=== PATIENT | female | born 1955 | race Caucasian/White ===

== ENCOUNTER 2017-01-18 15:35 | Inpatient (IN) | payer MEDICARE, MEDICAID ==
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
[2017-01-18] MEDS ORDERED: Lactated Ringers 1,000 ML IV ONE (15:41)
[2017-01-18] MEDS ORDERED: Ondansetron 4 MG/2 ML SDV IVPUSH ONE (15:41)
[2017-01-18] MEDS ORDERED: Famotidine 20 MG/2 ML SDV IVPUSH ONE (15:41)
[2017-01-18] MEDS ORDERED: Pantoprazole 40 MG Vial IVPUSH ONE (15:41)
[2017-01-18] MEDS: cefTRIAXone 1 GM in Sodium Chloride 0.9% 100 ML IV SCH (16:07)
[2017-01-18] MEDS: metroNIDAZOLE/Normal Saline 500 MG in Premix Bag 1 BAG IV SCH (16:22)
[2017-01-18 16:25] LABS: CHLORIDE,CL 101 mmol/L (98-107); SODIUM,NA 136 mmol/L (136-145)
[2017-01-18] MEDS ORDERED: Iopamidol 612 MG/ML 100 ML Bottle IVPUSH ONE (17:00)
[2017-01-18] MEDS ORDERED: Metoclopramide 10 MG/2 ML SDV IVPUSH PRN (18:44)
[2017-01-18] MEDS ORDERED: Ondansetron 4 MG/2 ML SDV IVPUSH PRN (18:46)
[2017-01-18] MEDS ORDERED: Acetaminophen 325 MG Tab PO PRN (18:46)
[2017-01-18] MEDS: Amitriptyline 25 MG Tab PO SCH (20:01)
[2017-01-18] MEDS: Nicotine 21 MG/24 Hr Patch TRDERM SCH (20:02)
[2017-01-18] MEDS: ALPRAZolam 1 MG Tab PO SCH (20:02)
[2017-01-18] MEDS: Magnesium Oxide 400 MG Tab PO SCH (20:02)
[2017-01-18] MEDS: Divalproex Sodium Delayed-Release 250 MG Tab.CR PO SCH (20:02)
[2017-01-18] MEDS: Gabapentin 100 MG Cap PO SCH (20:02)
[2017-01-18] MEDS: Sodium Chloride 0.9% 10 ML Syringe FLUSH SCH (20:03)
[2017-01-18] MEDS: D5 1/2 NS w/ 20 mEq/L KCl 1,000 ML IV SCH (20:10)
[2017-01-19] MEDS: metroNIDAZOLE/Normal Saline 500 MG in Premix Bag 1 BAG IV SCH ×3 (00:36→16:13)
[2017-01-19] MEDS: cefTRIAXone 1 GM in Sodium Chloride 0.9% 100 ML IV SCH ×2 (03:55→15:37)
[2017-01-19 07:30] LABS: CHLORIDE,CL 110 mmol/L (98-107); SODIUM,NA 144 mmol/L (136-145)
[2017-01-19] MEDS ORDERED: ALPRAZolam 1 MG Tab PO SCH (08:00)
[2017-01-19] MEDS ORDERED: Gabapentin 100 MG Cap PO SCH (08:00)
[2017-01-19] MEDS: Sodium Chloride 0.9% 10 ML Syringe FLUSH SCH ×2 (08:12→21:06)
[2017-01-19] MEDS: Pantoprazole 40 MG Vial IVPUSH SCH ×2 (08:13→21:04)
[2017-01-19] MEDS: Magnesium Oxide 400 MG Tab PO SCH ×2 (08:24→17:22)
[2017-01-19] MEDS: Gabapentin 100 MG Cap PO SCH ×3 (08:24→17:22)
[2017-01-19] MEDS: PARoxetine 20 MG Tab PO SCH (08:24)
[2017-01-19] MEDS: Divalproex Sodium Delayed-Release 250 MG Tab.CR PO SCH ×3 (08:24→17:21)
[2017-01-19] MEDS: ALPRAZolam 1 MG Tab PO SCH ×3 (08:25→17:22)
[2017-01-19] MEDS: Sodium Chloride 0.9% 10 ML Syringe FLUSH PRN ×3 (08:26→16:17)
[2017-01-19] MEDS: D5 1/2 NS w/ 20 mEq/L KCl 1,000 ML IV SCH (08:27)
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
[2017-01-19] MEDS ORDERED: Albuterol/Ipratropium 3.0-0.5 MG/3 ML Neb Soln NEB PRN (13:55)
[2017-01-19] MEDS ORDERED: Albuterol 0.083% 2.5 MG/3 ML Neb Soln INH PRN (14:00)
[2017-01-19] MEDS: Albuterol/Ipratropium 3.0-0.5 MG/3 ML Neb Soln NEB SCH ×2 (15:37→21:05)
[2017-01-19] MEDS: Nicotine 21 MG/24 Hr Patch TRDERM SCH (17:22)
[2017-01-19] MEDS ORDERED: cefTRIAXone 1 GM in Sodium Chloride 0.9% 100 ML IV SCH (18:46)
[2017-01-19] MEDS ORDERED: metroNIDAZOLE/Normal Saline 500 MG in Premix Bag 1 BAG IV SCH (18:46)
[2017-01-19] MEDS: Amitriptyline 25 MG Tab PO SCH (21:05)
[2017-01-19] MEDS: Budesonide 0.5 MG/2 ML Neb Susp NEB SCH (21:05)
[2017-01-19] MEDS: Famotidine 20 MG/2 ML SDV IVPUSH SCH (21:05)
[2017-01-20] MEDS: metroNIDAZOLE/Normal Saline 500 MG in Premix Bag 1 BAG IV SCH ×3 (00:04→15:41)
[2017-01-20] MEDS: Sodium Chloride 0.9% 10 ML Syringe FLUSH PRN (00:06)
[2017-01-20] MEDS: Albuterol/Ipratropium 3.0-0.5 MG/3 ML Neb Soln NEB SCH ×5 (02:07→20:49)
[2017-01-20] MEDS: D5 1/2 NS w/ 20 mEq/L KCl 1,000 ML IV SCH (03:38)
[2017-01-20] MEDS: cefTRIAXone 1 GM in Sodium Chloride 0.9% 100 ML IV SCH ×2 (03:42→14:46)
[2017-01-20] MEDS: Divalproex Sodium Delayed-Release 250 MG Tab.CR PO SCH ×3 (08:15→17:42)
[2017-01-20] MEDS: Magnesium Oxide 400 MG Tab PO SCH ×2 (08:16→17:42)
[2017-01-20] MEDS: PARoxetine 20 MG Tab PO SCH (08:17)
[2017-01-20] MEDS: Gabapentin 100 MG Cap PO SCH ×3 (08:17→17:41)
[2017-01-20] MEDS: ALPRAZolam 1 MG Tab PO SCH ×3 (08:17→17:41)
[2017-01-20 08:18] LABS: CHLORIDE,CL 108 mmol/L (98-107); SODIUM,NA 142 mmol/L (136-145)
[2017-01-20] MEDS: Budesonide 0.5 MG/2 ML Neb Susp NEB SCH ×3 (08:18→20:48)
[2017-01-20] MEDS: Pantoprazole 40 MG Vial IVPUSH SCH ×2 (08:18→20:13)
[2017-01-20] MEDS: Famotidine 20 MG/2 ML SDV IVPUSH SCH ×2 (08:18→20:13)
[2017-01-20] MEDS: Sodium Chloride 0.9% 10 ML Syringe FLUSH SCH ×2 (08:18→20:13)
[2017-01-20] MEDS: Nicotine 21 MG/24 Hr Patch TRDERM SCH (17:42)
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
[2017-01-20] MEDS: Amitriptyline 25 MG Tab PO SCH (20:12)
[2017-01-21] MEDS: metroNIDAZOLE/Normal Saline 500 MG in Premix Bag 1 BAG IV SCH ×3 (00:09→15:07)
[2017-01-21] MEDS: Sodium Chloride 0.9% 10 ML Syringe FLUSH PRN ×2 (00:10→03:24)
[2017-01-21] MEDS: cefTRIAXone 1 GM in Sodium Chloride 0.9% 100 ML IV SCH ×2 (03:24→16:17)
[2017-01-21] MEDS: Albuterol/Ipratropium 3.0-0.5 MG/3 ML Neb Soln NEB SCH ×2 (03:46→07:29)
[2017-01-21] MEDS: Pantoprazole 40 MG Vial IVPUSH SCH ×2 (07:28→20:37)
[2017-01-21] MEDS: Magnesium Oxide 400 MG Tab PO SCH ×2 (07:29→17:00)
[2017-01-21] MEDS: Gabapentin 100 MG Cap PO SCH ×3 (07:29→17:00)
[2017-01-21] MEDS: Budesonide 0.5 MG/2 ML Neb Susp NEB SCH (07:29)
[2017-01-21] MEDS: Sodium Chloride 0.9% 10 ML Syringe FLUSH SCH ×2 (07:29→20:38)
[2017-01-21] MEDS: Divalproex Sodium Delayed-Release 250 MG Tab.CR PO SCH ×3 (07:30→17:00)
[2017-01-21] MEDS: Famotidine 20 MG/2 ML SDV IVPUSH SCH ×2 (07:30→20:37)
[2017-01-21] MEDS: PARoxetine 20 MG Tab PO SCH (07:30)
[2017-01-21] MEDS: ALPRAZolam 1 MG Tab PO SCH ×3 (07:30→17:00)
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
[2017-01-21] MEDS: Nicotine 21 MG/24 Hr Patch TRDERM SCH (17:00)
[2017-01-21] MEDS: Amitriptyline 25 MG Tab PO SCH (20:37)
[2017-01-22] MEDS: metroNIDAZOLE/Normal Saline 500 MG in Premix Bag 1 BAG IV SCH ×3 (00:44→14:56)
[2017-01-22] MEDS: cefTRIAXone 1 GM in Sodium Chloride 0.9% 100 ML IV SCH ×2 (04:20→16:03)
[2017-01-22] MEDS: Famotidine 20 MG/2 ML SDV IVPUSH SCH (07:36)
[2017-01-22] MEDS: Pantoprazole 40 MG Vial IVPUSH SCH (07:36)
[2017-01-22] MEDS: Magnesium Oxide 400 MG Tab PO SCH (07:38)
[2017-01-22] MEDS: Gabapentin 100 MG Cap PO SCH ×2 (07:39→11:23)
[2017-01-22] MEDS: PARoxetine 20 MG Tab PO SCH (07:39)
[2017-01-22] MEDS: ALPRAZolam 1 MG Tab PO SCH ×2 (07:39→11:24)
[2017-01-22] MEDS: Divalproex Sodium Delayed-Release 250 MG Tab.CR PO SCH ×2 (07:40→11:24)
[2017-01-22 07:45] LABS: CHLORIDE,CL 103 mmol/L (98-107); SODIUM,NA 139 mmol/L (136-145)
[2017-01-22] MEDS: Sodium Chloride 0.9% 10 ML Syringe FLUSH SCH (07:48)
--- NOTE | 2017-01-22 13:08 | PCM.DCSUM1 ---
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 Microbiology 01/18/17 15:38 Blood - Venous Aerobic Blood Culture - Preliminary NO GROWTH AFTER 3 DAYS 01/18/17 15:38 Blood - Venous Anaerobic Blood Culture - Preliminary NO GROWTH AFTER 3 DAYS 01/18/17 16:09 Blood - Venous - Lab Draw Aerobic Blood Culture - Preliminary NO GROWTH AFTER 3 DAYS 01/18/17 16:09 Blood - Venous - Lab Draw Anaerobic Blood Culture - Preliminary NO GROWTH AFTER 3 DAYS 01/18/17 17:05 Urine, Quick Cath (In-Out) Urine Culture - Final NO GROWTH AFTER 2 DAYS 01/18/17 16:45 Stool / Feces Stool Occult Blood (EZEQUIEL) - Final NEGATIVE OCCULT BLOOD Med Orders - Current: Current Medications Acetaminophen (Tylenol) 650 mg PO Q4H PRN PRN Reason: Pain Last Admin: 01/19/17 08:25 Dose: 650 mg Albuterol (Proventil Neb Soln) 2.5 mg INH Q2H PRN PRN Reason: SHORTNESS OF BREATH Albuterol/Ipratropium (Duoneb 3.0-0.5 Mg/3 Ml) 3 ml NEB Q4HRRT PRN PRN Reason: Dyspnea Alprazolam (Xanax) 1 mg PO TID [facility] Last Admin: 01/22/17 11:24 Dose: 1 mg Amitriptyline HCl (Elavil) 50 mg PO BEDTIME [facility] Last Admin: 01/21/17 20:37 Dose: 50 mg Carisoprodol (Soma) 350 mg PO TID@08,14,20 [facility] Last Admin: 01/22/17 07:39 Dose: 350 mg Divalproex Sodium (Divalproex Sodium) 500 mg PO TID [facility] Last Admin: 01/22/17 11:24 Dose: 500 mg Famotidine (Pepcid) 20 mg IVPUSH Q12H [facility] Last Admin: 01/22/17 07:36 Dose: 20 mg Gabapentin (Neurontin) 100 mg PO TID [facility] Last Admin: 01/22/17 11:23 Dose: 100 mg Ceftriaxone Sodium 1 gm/ (Sodium Chloride) 100 mls @ 200 mls/hr IV Q12H [facility] Last Admin: 01/22/17 04:20 Dose: 200 mls/hr Metronidazole 500 mg/ Premix 100 mls @ 100 mls/hr IV Q8H [facility] Last Admin: 01/22/17 07:41 Dose: 100 mls/hr Magnesium Oxide (Magnesium Oxide) 400 mg PO BID [facility] Last Admin: 01/22/17 07:38 Dose: 400 mg Metoclopramide HCl (Reglan) 10 mg IVPUSH Q6H PRN PRN Reason: Abdominal Pain Last Admin: 01/19/17 08:16 Dose: 10 mg Miscellaneous Information (Remove Patch) 1 ea TRDERM QPM [facility] Last Admin: 01/21/17 16:59 Dose: 1 ea Nicotine (Habitrol) 21 mg TRDERM QPM [facility] Last Admin: 01/21/17 17:00 Dose: 21 mg Ondansetron HCl (Zofran) 4 mg IVPUSH Q6H PRN PRN Reason: Nausea/Vomiting Pantoprazole Sodium (Protonix Iv) 40 mg IVPUSH Q12H [facility] Last Admin: 01/22/17 07:36 Dose: 40 mg Paroxetine HCl (Paxil) 40 mg PO DAILY [facility] Last Admin: 01/22/17 07:39 Dose: 40 mg Sodium Chloride (Saline Flush) 10 ml FLUSH ASDIRECTED PRN PRN Reason: Keep Vein Open Last Admin: 01/21/17 03:24 Dose: 10 ml Sodium Chloride (Saline Flush) 10 ml FLUSH Q12HR [facility] Last Admin: 01/22/17 07:48 Dose: 10 ml Discontinued Medications Albuterol/Ipratropium (Duoneb 3.0-0.5 Mg/3 Ml) 3 ml NEB Q6HRRT [facility] Last Admin: 01/21/17 07:29 Dose: 3 ml Alprazolam (Xanax) 1 mg PO TID [facility] Budesonide (Pulmicort) 0.5 mg NEB BIDRT [facility] Last Admin: 01/21/17 07:29 Dose: 0.5 mg Diazepam (Valium) 2.5 mg IVPUSH ONETIME ONE Stop: 01/18/17 15:45 Last Admin: 01/18/17 16:05 Dose: 2.5 mg Diazepam (Valium) 2.5 mg IVPUSH ONETIME ONE Stop: 01/18/17 16:22 Last Admin: 01/18/17 16:24 Dose: 2.5 mg Famotidine (Pepcid) 40 mg IVPUSH ONETIME ONE Stop: 01/18/17 15:42 Last Admin: 01/18/17 15:55 Dose: 40 mg Gabapentin (Neurontin) 100 mg PO TID [facility] Lactated Ringer's (Ringers, Lactated) 1,000 mls @ 999 mls/hr IV .BOLUS ONE Stop: 01/18/17 16:41 Last Admin: 01/18/17 16:22 Dose: 999 mls/hr Ceftriaxone Sodium 1 gm/ (Sodium Chloride) 100 mls @ 200 mls/hr IV Q12H [facility] Potassium Chloride/Dextrose/Sod Cl (D5 1/2 Ns W/ 20 Meq/L Kcl) 1,000 mls @ 60 mls/hr IV ASDIRECTED [facility] Last Admin: 01/20/17 03:38 Dose: 100 mls/hr Metronidazole 500 mg/ Premix 100 mls @ 100 mls/hr IV Q8H [facility] Iopamidol (Isovue-300 (61%)) 100 ml IVPUSH ONETIME ONE Stop: 01/18/17 17:01 Last Admin: 01/18/17 17:57 Dose: 100 ml Ondansetron HCl (Zofran) 4 mg IVPUSH ONETIME ONE Stop: 01/18/17 15:42 Last Admin: 01/18/17 15:51 Dose: 4 mg Pantoprazole Sodium (Protonix Iv) 40 mg IVPUSH ONETIME ONE Stop: 01/18/17 15:42 Last Admin: 01/18/17 15:59 Dose: 40 mg - Exam Quality Assessment: Reports: DVT Prophylaxis. Denies: Supplemental Oxygen, Central Line/PICC, Urine Catheter, Skin Breakdown, Restraints General: Reports: Alert, Oriented, Cooperative, No Acute Distress HEENT: Reports: Pupils Equal, Pupils Reactive, EOMI, Mucous Membr. Moist/[place] Neck: Reports: Supple, Trachea Midline, No JVD, No Thyromegaly. Denies: Lymphadenopathy, Carotid Bruit Lungs: Reports: Clear to Auscultation, Normal Respiratory Effort. Denies: Rales , Rhonchi, Rub, Wheezing Cardiovascular: Reports: Regular Rate, Regular Rhythm, No Murmurs. Denies: Gallops, Rubs GI/Abdominal Exam: Soft, Non-Tender, No Organomegaly, No Distention, No Abnormal Bruit, No Mass, Pelvis Stable, Abnormal Bowel Sounds (Persistent mild diffuse increased bowel sounds significantly improved from early evaluations; not high-pitched in nature). No: Distended, Guarding, Rigid, Rebound (Female) Exam: Deferred Rectal (Female) Exam: Deferred Back Exam: Reports: Normal Inspection, Full Range of Motion. Denies: CVA Tenderness (L), CVA Tenderness (R), Muscle Spasm Extremities: Normal Inspection, Normal Range of Motion, Non-Tender, No Pedal Edema, Normal Capillary Refill, Other (Multiple tattoos). No: Lul's Sign Skin: Reports: Warm, Dry, Intact. Denies: Ecchymosis Neurological: Reports: No New Focal Deficit, Other (No clinical orthostasis) Psy/Mental Status: Reports: Alert, Labile Mood (Although improved), Anxious ( Mild to moderate), Depressed (Mild to moderate). Denies: Agitated, Suicidal Ideation, Homicidal Ideation, Hallucinations, Withdrawal Symptoms *Q Meaningful Use (DIS) - VTE *Q VTE Criteria *Q: - Stroke *Q Stroke Criteria *Q: - AMI *Q AMI Criteria *Q:
[2017-01-22 16:21] VITALS: BP 138/56
== END 2017-01-22 16:47 | disposition swing bed (61) | DRG 392 ==
LOC: LL.ED 15:35 → EEVIPCON 18:20 → LL.MS 18:20
PROVIDERS: ADMIT Family Medicine; ATTEND Family Medicine
DX: R10.84 Generalized abdominal pain (principal); F19.20 Other psychoactive substance dependence, uncomplicated; E46 Unspecified protein-calorie malnutrition; J44.9 Chronic obstructive pulmonary disease, unspecified; E87.6 Hypokalemia; E83.42 Hypomagnesemia; G89.4 Chronic pain syndrome; E03.9 Hypothyroidism, unspecified; I10 Essential (primary) hypertension; F41.8 Other specified anxiety disorders; F11.20 Opioid dependence, uncomplicated; F12.90 Cannabis use, unspecified, uncomplicated; M19.90 Unspecified osteoarthritis, unspecified site; K21.9 Gastro-esophageal reflux disease without esophagitis; G40.909 Epilepsy, unspecified, not intractable, without status epilepticus; B18.2 Chronic viral hepatitis C; R53.1 Weakness; E88.09 Other disorders of plasma-protein metabolism, not elsewhere classified; Z88.6 Allergy status to analgesic agent; Z79.899 Other long term (current) drug therapy; F17.210 Nicotine dependence, cigarettes, uncomplicated
CPT/HCPCS: 36415; 74177; 80053; 81001; 82150; 82272; 83605; 83690; 83735; 84443; 84550; 85025; 85610; 85730; 87040 ×2; 87086; 87338; 87493; 96361; 96365; 96367; 96375; 99285; C9113; G0480; J0696; J2405; J3360 ×2; J7050; J7120; Q9967 ×2; 74022; 94640; 94664; A9270-GY; J2765; J3480; S0028

== ENCOUNTER 2017-01-22 12:40 | Inpatient (IN) | payer MEDICARE, MEDICAID ==
[2017-01-22] MEDS ORDERED: Albuterol/Ipratropium 3.0-0.5 MG/3 ML Neb Soln NEB PRN (17:12)
[2017-01-22] MEDS ORDERED: Albuterol 0.083% 2.5 MG/3 ML Neb Soln INH PRN (17:12)
[2017-01-22] MEDS ORDERED: metroNIDAZOLE 500 MG Tab PO SCH (17:16)
[2017-01-22] MEDS: metroNIDAZOLE 500 MG Tab PO SCH (18:22)
[2017-01-22] MEDS: Omeprazole 20 MG Cap.CR PO SCH ×2 (18:23)
[2017-01-22] MEDS: Divalproex Sodium Delayed-Release 250 MG Tab.CR PO SCH (18:24)
[2017-01-22] MEDS: Amoxicillin 250 MG Cap PO SCH (18:24)
[2017-01-22] MEDS: Magnesium Oxide 400 MG Tab PO SCH (18:25)
[2017-01-22] MEDS: Nicotine 21 MG/24 Hr Patch TRDERM SCH (18:25)
[2017-01-22] MEDS: Gabapentin 100 MG Cap PO SCH (18:26)
[2017-01-22] MEDS: ALPRAZolam 1 MG Tab PO SCH (18:26)
[2017-01-22] MEDS: Bismuth Subsalicylate 262 MG/15 ML Susp 236 ML Bottle PO SCH (19:53)
[2017-01-22] MEDS: Amitriptyline 25 MG Tab PO SCH (19:54)
[2017-01-23] MEDS: metroNIDAZOLE 500 MG Tab PO SCH ×3 (00:37→17:01)
[2017-01-23] MEDS: Amoxicillin 250 MG Cap PO SCH ×2 (07:10→17:02)
[2017-01-23] MEDS: Omeprazole 20 MG Cap.CR PO SCH ×2 (07:10→17:01)
[2017-01-23] MEDS: Magnesium Oxide 400 MG Tab PO SCH ×2 (07:11→17:03)
[2017-01-23] MEDS: Divalproex Sodium Delayed-Release 250 MG Tab.CR PO SCH ×3 (07:11→17:02)
[2017-01-23] MEDS: Gabapentin 100 MG Cap PO SCH ×3 (07:12→17:04)
[2017-01-23] MEDS: PARoxetine 20 MG Tab PO SCH (07:12)
[2017-01-23] MEDS: Bismuth Subsalicylate 262 MG/15 ML Susp 236 ML Bottle PO SCH ×4 (07:13→19:35)
[2017-01-23] MEDS: ALPRAZolam 1 MG Tab PO SCH ×3 (07:13→17:05)
[2017-01-23] MEDS: Acetaminophen 325 MG Tab PO PRN ×3 (07:15→15:19)
[2017-01-23] MEDS: Sodium Chloride 0.9% 10 ML Syringe FLUSH SCH ×2 (08:07→19:35)
[2017-01-23] MEDS: Nicotine 21 MG/24 Hr Patch TRDERM SCH (17:03)
[2017-01-23] MEDS: Amitriptyline 25 MG Tab PO SCH (19:31)
--- NOTE | 2017-01-23 21:54 | PCM.SN ---
- Free Text/Narrative Note: H. pylori stool antigen from recent hospitalization came back negative. Therefore, aggressive treatment regimen for her previous H. pylori infection will be discontinued
[2017-01-24] MEDS: Omeprazole 20 MG Cap.CR PO SCH ×2 (08:18→17:44)
[2017-01-24] MEDS: Divalproex Sodium Delayed-Release 250 MG Tab.CR PO SCH ×3 (08:18→17:44)
[2017-01-24] MEDS: Magnesium Oxide 400 MG Tab PO SCH ×2 (08:19→17:45)
[2017-01-24] MEDS: Gabapentin 100 MG Cap PO SCH ×3 (08:19→17:46)
[2017-01-24] MEDS: PARoxetine 20 MG Tab PO SCH (08:20)
[2017-01-24] MEDS: Sodium Chloride 0.9% 10 ML Syringe FLUSH SCH ×2 (08:21→19:32)
[2017-01-24] MEDS: ALPRAZolam 1 MG Tab PO SCH ×3 (08:21→17:47)
[2017-01-24] MEDS: Nicotine 21 MG/24 Hr Patch TRDERM SCH (17:45)
[2017-01-24] MEDS: Amitriptyline 25 MG Tab PO SCH (19:31)
[2017-01-24] MEDS: Acetaminophen 325 MG Tab PO PRN (19:33)
[2017-01-25] MEDS: Omeprazole 20 MG Cap.CR PO SCH ×2 (07:10→17:00)
[2017-01-25] MEDS: Gabapentin 100 MG Cap PO SCH ×3 (07:11→17:02)
[2017-01-25] MEDS: Divalproex Sodium Delayed-Release 250 MG Tab.CR PO SCH ×3 (07:11→17:01)
[2017-01-25] MEDS: Magnesium Oxide 400 MG Tab PO SCH ×2 (07:11→17:02)
[2017-01-25] MEDS: PARoxetine 20 MG Tab PO SCH (07:12)
[2017-01-25] MEDS: Sodium Chloride 0.9% 10 ML Syringe FLUSH SCH (07:12)
[2017-01-25] MEDS: ALPRAZolam 1 MG Tab PO SCH ×3 (07:14→17:05)
[2017-01-25] MEDS: Acetaminophen 325 MG Tab PO PRN ×2 (07:15→11:50)
[2017-01-25] MEDS ORDERED: Acetaminophen 325 MG Tab PO STA (13:51)
[2017-01-25] MEDS: Nicotine 21 MG/24 Hr Patch TRDERM SCH (17:01)
[2017-01-25] MEDS: Acetaminophen 500 MG Tab PO SCH (17:03)
[2017-01-25] MEDS: Amitriptyline 25 MG Tab PO SCH (19:29)
[2017-01-26] MEDS: Omeprazole 20 MG Cap.CR PO SCH ×2 (07:22→17:10)
[2017-01-26] MEDS: Divalproex Sodium Delayed-Release 250 MG Tab.CR PO SCH ×3 (07:23→17:10)
[2017-01-26] MEDS: Gabapentin 100 MG Cap PO SCH ×3 (07:23→17:13)
[2017-01-26] MEDS: Magnesium Oxide 400 MG Tab PO SCH ×2 (07:23→17:12)
[2017-01-26] MEDS: PARoxetine 20 MG Tab PO SCH (07:24)
[2017-01-26] MEDS: Acetaminophen 500 MG Tab PO SCH ×3 (07:26→17:14)
[2017-01-26] MEDS: ALPRAZolam 1 MG Tab PO SCH ×3 (07:27→17:15)
[2017-01-26] MEDS: Nicotine 21 MG/24 Hr Patch TRDERM SCH (17:12)
[2017-01-26] MEDS: Amitriptyline 25 MG Tab PO SCH (19:28)
[2017-01-27] MEDS: Omeprazole 20 MG Cap.CR PO SCH ×2 (07:50→17:40)
[2017-01-27] MEDS: Magnesium Oxide 400 MG Tab PO SCH ×2 (07:51→17:42)
[2017-01-27] MEDS: Divalproex Sodium Delayed-Release 250 MG Tab.CR PO SCH ×3 (07:51→17:40)
[2017-01-27] MEDS: Gabapentin 100 MG Cap PO SCH ×3 (07:52→17:43)
[2017-01-27] MEDS: PARoxetine 20 MG Tab PO SCH (07:52)
[2017-01-27] MEDS: Acetaminophen 500 MG Tab PO SCH ×3 (07:54→17:43)
[2017-01-27] MEDS: ALPRAZolam 1 MG Tab PO SCH ×3 (07:55→17:44)
[2017-01-27] MEDS: Nicotine 21 MG/24 Hr Patch TRDERM SCH (17:41)
[2017-01-27] MEDS: Amitriptyline 25 MG Tab PO SCH (19:18)
[2017-01-28] MEDS: Divalproex Sodium Delayed-Release 250 MG Tab.CR PO SCH ×3 (07:22→17:00)
[2017-01-28] MEDS: Magnesium Oxide 400 MG Tab PO SCH ×2 (07:22→17:01)
[2017-01-28] MEDS: Omeprazole 20 MG Cap.CR PO SCH ×2 (07:22→17:00)
[2017-01-28] MEDS: PARoxetine 20 MG Tab PO SCH (07:23)
[2017-01-28] MEDS: Gabapentin 100 MG Cap PO SCH ×3 (07:23→17:02)
[2017-01-28] MEDS: Acetaminophen 500 MG Tab PO SCH ×3 (07:24→17:02)
[2017-01-28] MEDS: ALPRAZolam 1 MG Tab PO SCH ×3 (07:24→17:03)
[2017-01-28] MEDS: Nicotine 21 MG/24 Hr Patch TRDERM SCH (17:05)
[2017-01-28] MEDS: Amitriptyline 25 MG Tab PO SCH (19:34)
[2017-01-29] MEDS: Omeprazole 20 MG Cap.CR PO SCH ×2 (08:15→17:25)
[2017-01-29] MEDS: Magnesium Oxide 400 MG Tab PO SCH ×2 (08:17→17:28)
[2017-01-29] MEDS: Divalproex Sodium Delayed-Release 250 MG Tab.CR PO SCH ×3 (08:17→17:26)
[2017-01-29] MEDS: PARoxetine 20 MG Tab PO SCH (08:18)
[2017-01-29] MEDS: Gabapentin 100 MG Cap PO SCH ×3 (08:18→17:28)
[2017-01-29] MEDS: Acetaminophen 500 MG Tab PO SCH ×3 (08:20→17:31)
[2017-01-29] MEDS: ALPRAZolam 1 MG Tab PO SCH ×3 (08:23→17:32)
[2017-01-29] MEDS: Acetaminophen 325 MG Tab PO PRN (15:13)
[2017-01-29] MEDS: Nicotine 21 MG/24 Hr Patch TRDERM SCH (17:27)
[2017-01-29] MEDS: Amitriptyline 25 MG Tab PO SCH (19:00)
[2017-01-30] MEDS: Omeprazole 20 MG Cap.CR PO SCH ×2 (07:23→17:31)
[2017-01-30] MEDS: Divalproex Sodium Delayed-Release 250 MG Tab.CR PO SCH ×3 (07:24→17:32)
[2017-01-30] MEDS: Magnesium Oxide 400 MG Tab PO SCH ×2 (07:24→17:32)
[2017-01-30] MEDS: Gabapentin 100 MG Cap PO SCH ×3 (07:25→17:33)
[2017-01-30] MEDS: PARoxetine 20 MG Tab PO SCH (07:25)
[2017-01-30] MEDS: Acetaminophen 500 MG Tab PO SCH ×3 (07:26→17:33)
[2017-01-30] MEDS: ALPRAZolam 1 MG Tab PO SCH ×3 (07:26→17:34)
[2017-01-30 08:09] LABS: CHLORIDE,CL 102 mmol/L (98-107); SODIUM,NA 139 mmol/L (136-145)
--- NOTE | 2017-01-30 10:52 | PCM.SN ---
- Free Text/Narrative Note: Today's blood work was reviewed. Mild leukopenia, hypoalbuminemia, and decreased valproic acid level with no change in medical therapy for the time being. Observe for now. Patient will be started on twice a day high-protein Glucerna supplements as next. Repeat blood work on 02/27.
[2017-01-30] MEDS: Magnesium Hydroxide 400 MG/5 ML Susp 30 ML Cup PO PRN (11:50)
[2017-01-30] MEDS: Bisacodyl 10 MG Supp RECTAL PRN (15:26)
[2017-01-30] MEDS: Nicotine 21 MG/24 Hr Patch TRDERM SCH (17:32)
[2017-01-30] MEDS: Amitriptyline 25 MG Tab PO SCH (19:36)
[2017-01-31] MEDS: Divalproex Sodium Delayed-Release 250 MG Tab.CR PO SCH ×3 (07:33→17:08)
[2017-01-31] MEDS: Omeprazole 20 MG Cap.CR PO SCH ×2 (07:33→17:08)
[2017-01-31] MEDS: Magnesium Oxide 400 MG Tab PO SCH ×2 (07:34→17:11)
[2017-01-31] MEDS: Gabapentin 100 MG Cap PO SCH ×3 (07:34→17:11)
[2017-01-31] MEDS: PARoxetine 20 MG Tab PO SCH (07:35)
[2017-01-31] MEDS: Acetaminophen 500 MG Tab PO SCH ×3 (07:36→17:12)
[2017-01-31] MEDS: ALPRAZolam 1 MG Tab PO SCH ×3 (07:37→17:13)
[2017-01-31] MEDS: Bisacodyl 10 MG Supp RECTAL PRN (17:07)
[2017-01-31] MEDS: Nicotine 21 MG/24 Hr Patch TRDERM SCH (17:10)
[2017-01-31] MEDS: Amitriptyline 25 MG Tab PO SCH (20:31)
[2017-02-01] MEDS: Omeprazole 20 MG Cap.CR PO SCH ×2 (08:21→17:03)
[2017-02-01] MEDS: Magnesium Oxide 400 MG Tab PO SCH ×2 (08:22→17:02)
[2017-02-01] MEDS: Divalproex Sodium Delayed-Release 250 MG Tab.CR PO SCH ×3 (08:22→17:03)
[2017-02-01] MEDS: PARoxetine 20 MG Tab PO SCH (08:23)
[2017-02-01] MEDS: Gabapentin 100 MG Cap PO SCH ×3 (08:23→17:02)
[2017-02-01] MEDS: Acetaminophen 500 MG Tab PO SCH ×3 (08:24→17:01)
[2017-02-01] MEDS: ALPRAZolam 1 MG Tab PO SCH ×3 (08:25→17:05)
[2017-02-01] MEDS ORDERED: Polyethylene Glycol 3350 Powder 510 GM Bot PO ONE (12:30)
[2017-02-01] MEDS ORDERED: Magnesium Citrate Solution 296 ML Bottle PO ONE (12:30)
[2017-02-01] MEDS: Bisacodyl 10 MG Supp RECTAL PRN (16:58)
[2017-02-01] MEDS: Nicotine 21 MG/24 Hr Patch TRDERM SCH (17:00)
[2017-02-01] MEDS: buPROPion 150 MG Tab.ER PO SCH (17:00)
[2017-02-01] MEDS: Amitriptyline 25 MG Tab PO SCH (19:51)
[2017-02-02] MEDS: Omeprazole 20 MG Cap.CR PO SCH ×2 (07:11→17:10)
[2017-02-02] MEDS: Divalproex Sodium Delayed-Release 250 MG Tab.CR PO SCH ×3 (07:11→17:11)
[2017-02-02] MEDS: Gabapentin 100 MG Cap PO SCH ×3 (07:12→17:12)
[2017-02-02] MEDS: Magnesium Oxide 400 MG Tab PO SCH ×2 (07:12→17:12)
[2017-02-02] MEDS: PARoxetine 20 MG Tab PO SCH (07:13)
[2017-02-02] MEDS: ALPRAZolam 1 MG Tab PO SCH ×3 (07:14→17:15)
[2017-02-02] MEDS: Acetaminophen 500 MG Tab PO SCH ×3 (07:15→17:13)
[2017-02-02] MEDS: Bisacodyl 10 MG Supp RECTAL PRN (14:21)
[2017-02-02] MEDS ORDERED: Magnesium Citrate Solution 296 ML Bottle PO ONE (14:36)
[2017-02-02] MEDS: Nicotine 21 MG/24 Hr Patch TRDERM SCH (17:11)
[2017-02-02] MEDS: buPROPion 150 MG Tab.ER PO SCH (17:14)
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
[2017-02-02] MEDS: Polyethylene Glycol 3350 Powder 510 GM Bot PO SCH (19:07)
[2017-02-02] MEDS: Amitriptyline 25 MG Tab PO SCH (19:07)
[2017-02-03] MEDS: Acetaminophen 325 MG Tab PO PRN (01:45)
[2017-02-03] MEDS: Omeprazole 20 MG Cap.CR PO SCH ×2 (07:34→17:40)
[2017-02-03] MEDS: Gabapentin 100 MG Cap PO SCH ×3 (07:35→17:42)
[2017-02-03] MEDS: PARoxetine 20 MG Tab PO SCH (07:36)
[2017-02-03] MEDS: Divalproex Sodium Delayed-Release 250 MG Tab.CR PO SCH ×3 (07:37→17:40)
[2017-02-03] MEDS: Magnesium Oxide 400 MG Tab PO SCH ×2 (07:38→17:42)
[2017-02-03] MEDS: Acetaminophen 500 MG Tab PO SCH ×3 (07:39→17:43)
[2017-02-03] MEDS: ALPRAZolam 1 MG Tab PO SCH ×4 (07:42→17:45)
[2017-02-03] MEDS: Bisacodyl 10 MG Supp RECTAL PRN (16:21)
[2017-02-03] MEDS: Nicotine 21 MG/24 Hr Patch TRDERM SCH (17:41)
[2017-02-03] MEDS: buPROPion 150 MG Tab.ER PO SCH (17:44)
[2017-02-03] MEDS: Amitriptyline 25 MG Tab PO SCH (19:36)
[2017-02-04] MEDS: Divalproex Sodium Delayed-Release 250 MG Tab.CR PO SCH ×3 (07:46→17:28)
[2017-02-04] MEDS: Omeprazole 20 MG Cap.CR PO SCH ×2 (07:46→17:28)
[2017-02-04] MEDS: PARoxetine 20 MG Tab PO SCH (07:47)
[2017-02-04] MEDS: Magnesium Oxide 400 MG Tab PO SCH ×2 (07:47→17:29)
[2017-02-04] MEDS: Gabapentin 100 MG Cap PO SCH ×3 (07:47→17:29)
[2017-02-04] MEDS: ALPRAZolam 1 MG Tab PO SCH ×3 (07:49→17:31)
[2017-02-04] MEDS: Acetaminophen 500 MG Tab PO SCH ×3 (07:50→17:30)
[2017-02-04] MEDS: Bisacodyl 10 MG Supp RECTAL PRN (14:50)
[2017-02-04] MEDS: Acetaminophen 325 MG Tab PO PRN (15:45)
[2017-02-04] MEDS: Nicotine 21 MG/24 Hr Patch TRDERM SCH (17:28)
[2017-02-04] MEDS: buPROPion 150 MG Tab.ER PO SCH (17:30)
[2017-02-04] MEDS: Amitriptyline 25 MG Tab PO SCH (19:08)
[2017-02-05] MEDS: Divalproex Sodium Delayed-Release 250 MG Tab.CR PO SCH ×3 (07:32→17:11)
[2017-02-05] MEDS: Omeprazole 20 MG Cap.CR PO SCH ×2 (07:32→17:10)
[2017-02-05] MEDS: Gabapentin 100 MG Cap PO SCH ×3 (07:33→17:12)
[2017-02-05] MEDS: PARoxetine 20 MG Tab PO SCH (07:33)
[2017-02-05] MEDS: Magnesium Oxide 400 MG Tab PO SCH ×2 (07:33→17:11)
[2017-02-05] MEDS: Acetaminophen 500 MG Tab PO SCH ×3 (07:34→17:12)
[2017-02-05] MEDS: ALPRAZolam 1 MG Tab PO SCH ×3 (07:35→17:15)
[2017-02-05] MEDS: Nicotine 21 MG/24 Hr Patch TRDERM SCH (17:11)
[2017-02-05] MEDS: buPROPion 150 MG Tab.ER PO SCH (17:14)
[2017-02-05] MEDS: Amitriptyline 25 MG Tab PO SCH (19:47)
[2017-02-05] MEDS: Polyethylene Glycol 3350 Powder 510 GM Bot PO SCH (19:48)
[2017-02-06] MEDS: Divalproex Sodium Delayed-Release 250 MG Tab.CR PO SCH ×3 (08:00→17:15)
[2017-02-06] MEDS: Gabapentin 100 MG Cap PO SCH ×3 (08:01→17:17)
[2017-02-06] MEDS: Magnesium Oxide 400 MG Tab PO SCH ×2 (08:01→17:16)
[2017-02-06] MEDS: PARoxetine 20 MG Tab PO SCH (08:02)
[2017-02-06] MEDS: Acetaminophen 500 MG Tab PO SCH ×3 (08:03→17:17)
[2017-02-06] MEDS: ALPRAZolam 1 MG Tab PO SCH ×3 (08:05→17:19)
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
[2017-02-06] MEDS: Lidocaine 5% 700 MG Patch TOP SCH (12:12)
[2017-02-06] MEDS: Nicotine 21 MG/24 Hr Patch TRDERM SCH (17:15)
[2017-02-06] MEDS: buPROPion 150 MG Tab.ER PO SCH (17:19)
[2017-02-06] MEDS: Amitriptyline 25 MG Tab PO SCH (20:45)
[2017-02-07] MEDS: Divalproex Sodium Delayed-Release 250 MG Tab.CR PO SCH ×3 (08:02→17:38)
[2017-02-07] MEDS: Magnesium Oxide 400 MG Tab PO SCH ×2 (08:03→17:40)
[2017-02-07] MEDS: Gabapentin 100 MG Cap PO SCH ×3 (08:03→17:40)
[2017-02-07] MEDS: PARoxetine 20 MG Tab PO SCH (08:03)
[2017-02-07] MEDS: Acetaminophen 500 MG Tab PO SCH ×3 (08:04→17:41)
[2017-02-07] MEDS: ALPRAZolam 1 MG Tab PO SCH ×3 (08:05→17:42)
[2017-02-07] MEDS: Lidocaine 5% 700 MG Patch TOP SCH (09:02)
[2017-02-07] MEDS: Bisacodyl 10 MG Supp RECTAL PRN (13:46)
[2017-02-07] MEDS: Acetaminophen 325 MG Tab PO PRN (16:11)
[2017-02-07] MEDS: Nicotine 21 MG/24 Hr Patch TRDERM SCH (17:39)
[2017-02-07] MEDS: buPROPion 150 MG Tab.ER PO SCH (17:42)
[2017-02-07] MEDS: Polyethylene Glycol 3350 Powder 510 GM Bot PO SCH (19:44)
[2017-02-07] MEDS: Amitriptyline 25 MG Tab PO SCH (19:45)
[2017-02-08] MEDS: Magnesium Oxide 400 MG Tab PO SCH ×2 (07:47→17:04)
[2017-02-08] MEDS: Gabapentin 100 MG Cap PO SCH ×3 (07:47→17:05)
[2017-02-08] MEDS: Divalproex Sodium Delayed-Release 250 MG Tab.CR PO SCH ×3 (07:47→17:03)
[2017-02-08] MEDS: PARoxetine 20 MG Tab PO SCH (07:48)
[2017-02-08] MEDS: Acetaminophen 500 MG Tab PO SCH ×3 (07:49→17:05)
[2017-02-08] MEDS: ALPRAZolam 1 MG Tab PO SCH ×3 (07:50→17:08)
[2017-02-08] MEDS: Lidocaine 5% 700 MG Patch TOP SCH (09:43)
[2017-02-08] MEDS: Acetaminophen 325 MG Tab PO PRN (15:36)
[2017-02-08] MEDS: Bisacodyl 10 MG Supp RECTAL PRN (16:54)
[2017-02-08] MEDS: Nicotine 21 MG/24 Hr Patch TRDERM SCH (17:03)
[2017-02-08] MEDS: buPROPion 150 MG Tab.ER PO SCH (17:06)
[2017-02-08] MEDS: Amitriptyline 25 MG Tab PO SCH (19:15)
[2017-02-09] MEDS: Divalproex Sodium Delayed-Release 250 MG Tab.CR PO SCH ×3 (07:45→17:02)
[2017-02-09] MEDS: Magnesium Oxide 400 MG Tab PO SCH ×2 (07:46→17:04)
[2017-02-09] MEDS: Gabapentin 100 MG Cap PO SCH ×2 (07:46→11:11)
[2017-02-09] MEDS: Acetaminophen 500 MG Tab PO SCH ×3 (07:47→17:06)
[2017-02-09] MEDS: PARoxetine 20 MG Tab PO SCH (07:47)
[2017-02-09] MEDS: ALPRAZolam 1 MG Tab PO SCH ×3 (07:49→17:08)
[2017-02-09] MEDS: Lidocaine 5% 700 MG Patch TOP SCH (11:10)
[2017-02-09] MEDS: Amitriptyline 25 MG Tab PO SCH (17:03)
[2017-02-09] MEDS: Nicotine 21 MG/24 Hr Patch TRDERM SCH (17:04)
[2017-02-09] MEDS: Gabapentin 300 MG Cap PO SCH (17:05)
[2017-02-09] MEDS: Bisacodyl 10 MG Supp RECTAL PRN (17:16)
[2017-02-09] MEDS: Polyethylene Glycol 3350 Powder 510 GM Bot PO SCH (19:48)
[2017-02-09] MEDS ORDERED: Amitriptyline 25 MG Tab PO SCH (20:00)
[2017-02-10] MEDS: Divalproex Sodium Delayed-Release 250 MG Tab.CR PO SCH ×3 (07:04→17:00)
[2017-02-10] MEDS: Gabapentin 300 MG Cap PO SCH ×2 (07:06→17:04)
[2017-02-10] MEDS: Magnesium Oxide 400 MG Tab PO SCH ×2 (07:06→17:03)
[2017-02-10] MEDS: PARoxetine 20 MG Tab PO SCH (07:07)
[2017-02-10] MEDS: Acetaminophen 500 MG Tab PO SCH ×3 (07:09→17:05)
[2017-02-10] MEDS: buPROPion 150 MG Tab.ER PO SCH (07:11)
[2017-02-10] MEDS: ALPRAZolam 1 MG Tab PO SCH ×3 (07:11→17:06)
[2017-02-10] MEDS: Lidocaine 5% 700 MG Patch TOP SCH (10:59)
[2017-02-10] MEDS: Bisacodyl 10 MG Supp RECTAL PRN (14:01)
[2017-02-10] MEDS: Amitriptyline 25 MG Tab PO SCH (17:01)
[2017-02-10] MEDS: Nicotine 21 MG/24 Hr Patch TRDERM SCH (17:02)
[2017-02-11] MEDS: Divalproex Sodium Delayed-Release 250 MG Tab.CR PO SCH ×3 (07:02→17:00)
[2017-02-11] MEDS: Magnesium Oxide 400 MG Tab PO SCH ×2 (07:03→17:03)
[2017-02-11] MEDS: Gabapentin 300 MG Cap PO SCH ×2 (07:03→17:04)
[2017-02-11] MEDS: PARoxetine 20 MG Tab PO SCH (07:04)
[2017-02-11] MEDS: Acetaminophen 500 MG Tab PO SCH ×3 (07:05→17:05)
[2017-02-11] MEDS: buPROPion 150 MG Tab.ER PO SCH (07:07)
[2017-02-11] MEDS: ALPRAZolam 1 MG Tab PO SCH ×3 (07:08→17:06)
[2017-02-11] MEDS: Lidocaine 5% 700 MG Patch TOP SCH (10:59)
[2017-02-11] MEDS: Amitriptyline 25 MG Tab PO SCH (17:00)
[2017-02-11] MEDS: Nicotine 21 MG/24 Hr Patch TRDERM SCH (17:01)
[2017-02-12] MEDS: Divalproex Sodium Delayed-Release 250 MG Tab.CR PO SCH ×3 (07:37→17:37)
[2017-02-12] MEDS: Magnesium Oxide 400 MG Tab PO SCH ×2 (07:37→17:40)
[2017-02-12] MEDS: PARoxetine 20 MG Tab PO SCH (07:38)
[2017-02-12] MEDS: Gabapentin 300 MG Cap PO SCH ×2 (07:38→17:40)
[2017-02-12] MEDS: buPROPion 150 MG Tab.ER PO SCH (07:39)
[2017-02-12] MEDS: Acetaminophen 500 MG Tab PO SCH ×3 (07:39→17:41)
[2017-02-12] MEDS: ALPRAZolam 1 MG Tab PO SCH ×3 (07:42→17:42)
[2017-02-12] MEDS: Lidocaine 5% 700 MG Patch TOP SCH (13:09)
[2017-02-12] MEDS: Bisacodyl 10 MG Supp RECTAL PRN (17:02)
[2017-02-12] MEDS: Amitriptyline 25 MG Tab PO SCH (17:38)
[2017-02-12] MEDS: Nicotine 21 MG/24 Hr Patch TRDERM SCH (17:39)
[2017-02-12] MEDS: Polyethylene Glycol 3350 Powder 510 GM Bot PO SCH (19:43)
[2017-02-13] MEDS: Acetaminophen 325 MG Tab PO PRN (03:33)
[2017-02-13] MEDS: Divalproex Sodium Delayed-Release 250 MG Tab.CR PO SCH ×3 (07:42→17:52)
[2017-02-13] MEDS: Gabapentin 300 MG Cap PO SCH ×2 (07:43→17:54)
[2017-02-13] MEDS: PARoxetine 20 MG Tab PO SCH (07:43)
[2017-02-13] MEDS: Magnesium Oxide 400 MG Tab PO SCH ×2 (07:43→17:54)
[2017-02-13] MEDS: Acetaminophen 500 MG Tab PO SCH ×3 (07:44→17:55)
[2017-02-13] MEDS: buPROPion 150 MG Tab.ER PO SCH (07:45)
[2017-02-13] MEDS: ALPRAZolam 1 MG Tab PO SCH ×3 (07:47→17:56)
[2017-02-13] MEDS: Lidocaine 5% 700 MG Patch TOP SCH (10:04)
[2017-02-13] MEDS: Bisacodyl 10 MG Supp RECTAL PRN (15:44)
[2017-02-13] MEDS: Nicotine 21 MG/24 Hr Patch TRDERM SCH (17:53)
[2017-02-13] MEDS: Amitriptyline 25 MG Tab PO SCH (17:53)
[2017-02-13] MEDS: QUEtiapine 25 MG Tab PO SCH ×2 (18:29→20:05)
[2017-02-14] MEDS: Gabapentin 300 MG Cap PO SCH ×2 (07:22→17:20)
[2017-02-14] MEDS: Divalproex Sodium Delayed-Release 250 MG Tab.CR PO SCH ×3 (07:22→17:17)
[2017-02-14] MEDS: Magnesium Oxide 400 MG Tab PO SCH ×2 (07:22→17:19)
[2017-02-14] MEDS: PARoxetine 20 MG Tab PO SCH (07:23)
[2017-02-14] MEDS: Acetaminophen 500 MG Tab PO SCH ×3 (07:24→17:21)
[2017-02-14] MEDS: buPROPion 150 MG Tab.ER PO SCH (07:25)
[2017-02-14] MEDS: ALPRAZolam 1 MG Tab PO SCH ×3 (07:26→17:23)
[2017-02-14] MEDS: Lidocaine 5% 700 MG Patch TOP SCH (11:23)
[2017-02-14] MEDS: Bisacodyl 10 MG Supp RECTAL PRN (15:57)
[2017-02-14] MEDS: Amitriptyline 25 MG Tab PO SCH (17:18)
[2017-02-14] MEDS: Nicotine 21 MG/24 Hr Patch TRDERM SCH (17:19)
--- NOTE | 2017-02-14 18:10 | PCM.SN ---
- Free Text/Narrative Note: Patient seen today with chief complaint of worsening of depression at this time patient states missing her significant other would like her to move in with her if possible, we at this time or working on that. Patient crying, and very depressed, her significant other is on hospice and dying of liver disease. At this time patient complains of lower back pain. She's had pain for multiple years, recently had surgery and was taken off her Vicodin. At this time I will restart it after Vicodin 5 mg 1 tablet every 12 hours for chronic pain. We will also do a UA drug screen since nurses have noticed bizarre behaviors with questionable visitors possibly bringing her street drugs.
[2017-02-14] MEDS: Polyethylene Glycol 3350 Powder 510 GM Bot PO SCH (20:01)
[2017-02-14] MEDS: QUEtiapine 25 MG Tab PO SCH (20:32)
[2017-02-14] MEDS: Acetaminophen/HYDROcodone 325-5 MG Tab PO SCH (20:35)
[2017-02-15] MEDS: ALPRAZolam 1 MG Tab PO SCH ×3 (07:01→17:23)
[2017-02-15] MEDS: Acetaminophen/HYDROcodone 325-5 MG Tab PO SCH ×2 (07:03→19:10)
[2017-02-15] MEDS: Gabapentin 300 MG Cap PO SCH ×2 (07:05→17:20)
[2017-02-15] MEDS: Divalproex Sodium Delayed-Release 250 MG Tab.CR PO SCH ×3 (07:05→17:16)
[2017-02-15] MEDS: PARoxetine 20 MG Tab PO SCH (07:06)
[2017-02-15] MEDS: buPROPion 150 MG Tab.ER PO SCH (07:06)
[2017-02-15] MEDS: Magnesium Oxide 400 MG Tab PO SCH ×2 (07:07→17:20)
[2017-02-15] MEDS: Acetaminophen 500 MG Tab PO SCH ×3 (07:08→17:21)
[2017-02-15] MEDS: Lidocaine 5% 700 MG Patch TOP SCH (10:00)
[2017-02-15] MEDS ORDERED: LORazepam 0.5 MG Tab PO ONE (15:45)
[2017-02-15] MEDS: Amitriptyline 25 MG Tab PO SCH (17:17)
[2017-02-15] MEDS: Nicotine 21 MG/24 Hr Patch TRDERM SCH (17:24)
[2017-02-15] MEDS: QUEtiapine 25 MG Tab PO SCH (19:10)
[2017-02-16] MEDS: Divalproex Sodium Delayed-Release 250 MG Tab.CR PO SCH ×3 (07:54→17:11)
[2017-02-16] MEDS: Magnesium Oxide 400 MG Tab PO SCH ×2 (07:55→17:14)
[2017-02-16] MEDS: Gabapentin 300 MG Cap PO SCH ×2 (07:55→17:14)
[2017-02-16] MEDS: Acetaminophen/HYDROcodone 325-5 MG Tab PO SCH ×2 (07:56→19:40)
[2017-02-16] MEDS: PARoxetine 20 MG Tab PO SCH (07:57)
[2017-02-16] MEDS: Acetaminophen 500 MG Tab PO SCH ×3 (07:58→17:15)
[2017-02-16] MEDS: buPROPion 150 MG Tab.ER PO SCH (08:00)
[2017-02-16] MEDS: ALPRAZolam 1 MG Tab PO SCH ×3 (08:01→17:16)
[2017-02-16] MEDS: Lidocaine 5% 700 MG Patch TOP SCH (11:09)
[2017-02-16] MEDS: Bisacodyl 10 MG Supp RECTAL PRN (13:56)
[2017-02-16] MEDS ORDERED: LORazepam 0.5 MG Tab PO ONE (14:23)
[2017-02-16] MEDS ORDERED: LORazepam 0.5 MG Tab PO PRN (14:25)
[2017-02-16] MEDS: Nicotine 21 MG/24 Hr Patch TRDERM SCH (17:11)
[2017-02-16] MEDS: Amitriptyline 25 MG Tab PO SCH (17:13)
[2017-02-16] MEDS: Polyethylene Glycol 3350 Powder 510 GM Bot PO SCH (19:39)
[2017-02-16] MEDS: QUEtiapine 25 MG Tab PO SCH (19:41)
[2017-02-17] MEDS: Magnesium Oxide 400 MG Tab PO SCH ×2 (07:02→17:23)
[2017-02-17] MEDS: Divalproex Sodium Delayed-Release 250 MG Tab.CR PO SCH ×3 (07:02→17:21)
[2017-02-17] MEDS: PARoxetine 20 MG Tab PO SCH (07:03)
[2017-02-17] MEDS: Gabapentin 300 MG Cap PO SCH ×2 (07:03→17:24)
[2017-02-17] MEDS: Acetaminophen/HYDROcodone 325-5 MG Tab PO SCH ×2 (07:04→19:05)
[2017-02-17] MEDS: buPROPion 150 MG Tab.ER PO SCH (07:05)
[2017-02-17] MEDS: ALPRAZolam 1 MG Tab PO SCH ×3 (07:06→17:26)
[2017-02-17] MEDS: Acetaminophen 500 MG Tab PO SCH ×3 (07:07→17:25)
[2017-02-17] MEDS: Lidocaine 5% 700 MG Patch TOP SCH (11:00)
[2017-02-17] MEDS: Bisacodyl 10 MG Supp RECTAL PRN (14:17)
[2017-02-17] MEDS: LORazepam 0.5 MG Tab PO SCH (15:50)
[2017-02-17] MEDS: Amitriptyline 25 MG Tab PO SCH (17:22)
[2017-02-17] MEDS: Nicotine 21 MG/24 Hr Patch TRDERM SCH (17:22)
[2017-02-17] MEDS: QUEtiapine 25 MG Tab PO SCH (19:08)
[2017-02-18] MEDS: Magnesium Oxide 400 MG Tab PO SCH ×2 (07:10→17:07)
[2017-02-18] MEDS: Divalproex Sodium Delayed-Release 250 MG Tab.CR PO SCH ×3 (07:10→17:06)
[2017-02-18] MEDS: PARoxetine 20 MG Tab PO SCH (07:11)
[2017-02-18] MEDS: Gabapentin 300 MG Cap PO SCH ×2 (07:11→17:08)
[2017-02-18] MEDS: Acetaminophen/HYDROcodone 325-5 MG Tab PO SCH ×2 (07:13→19:12)
[2017-02-18] MEDS: Acetaminophen 500 MG Tab PO SCH ×3 (07:14→17:09)
[2017-02-18] MEDS: ALPRAZolam 1 MG Tab PO SCH ×3 (07:14→17:10)
[2017-02-18] MEDS: buPROPion 150 MG Tab.ER PO SCH (07:15)
[2017-02-18] MEDS: Lidocaine 5% 700 MG Patch TOP SCH (10:00)
[2017-02-18] MEDS: Bisacodyl 10 MG Supp RECTAL PRN (10:00)
[2017-02-18] MEDS: LORazepam 0.5 MG Tab PO SCH (13:51)
[2017-02-18] MEDS: Amitriptyline 25 MG Tab PO SCH (17:06)
[2017-02-18] MEDS: Nicotine 21 MG/24 Hr Patch TRDERM SCH (17:07)
[2017-02-18] MEDS: QUEtiapine 25 MG Tab PO SCH (19:15)
[2017-02-19] MEDS: Gabapentin 300 MG Cap PO SCH ×2 (07:46→17:19)
[2017-02-19] MEDS: Magnesium Oxide 400 MG Tab PO SCH ×2 (07:46→17:19)
[2017-02-19] MEDS: Divalproex Sodium Delayed-Release 250 MG Tab.CR PO SCH ×3 (07:46→17:16)
[2017-02-19] MEDS: Acetaminophen/HYDROcodone 325-5 MG Tab PO SCH ×2 (07:47→19:15)
[2017-02-19] MEDS: PARoxetine 20 MG Tab PO SCH (07:48)
[2017-02-19] MEDS: Acetaminophen 500 MG Tab PO SCH ×3 (07:49→17:21)
[2017-02-19] MEDS: ALPRAZolam 1 MG Tab PO SCH ×3 (07:50→17:22)
[2017-02-19] MEDS: buPROPion 150 MG Tab.ER PO SCH (07:50)
[2017-02-19] MEDS: Lidocaine 5% 700 MG Patch TOP SCH (11:07)
[2017-02-19] MEDS: Bisacodyl 10 MG Supp RECTAL PRN (14:11)
[2017-02-19] MEDS: LORazepam 0.5 MG Tab PO SCH (14:12)
[2017-02-19] MEDS: Amitriptyline 25 MG Tab PO SCH (17:17)
[2017-02-19] MEDS: Nicotine 21 MG/24 Hr Patch TRDERM SCH (17:17)
[2017-02-19] MEDS: Polyethylene Glycol 3350 Powder 510 GM Bot PO SCH (19:14)
[2017-02-19] MEDS: QUEtiapine 25 MG Tab PO SCH (19:17)
[2017-02-20] MEDS: Divalproex Sodium Delayed-Release 250 MG Tab.CR PO SCH ×3 (07:24→17:45)
[2017-02-20] MEDS: Magnesium Oxide 400 MG Tab PO SCH ×2 (07:24→17:49)
[2017-02-20] MEDS: Gabapentin 300 MG Cap PO SCH ×2 (07:25→17:49)
[2017-02-20] MEDS: Acetaminophen/HYDROcodone 325-5 MG Tab PO SCH ×2 (07:25→19:39)
[2017-02-20] MEDS: ALPRAZolam 1 MG Tab PO SCH ×3 (07:27→17:52)
[2017-02-20] MEDS: PARoxetine 20 MG Tab PO SCH (07:28)
[2017-02-20] MEDS: Acetaminophen 500 MG Tab PO SCH ×3 (07:28→17:50)
[2017-02-20] MEDS: buPROPion 150 MG Tab.ER PO SCH (07:29)
[2017-02-20] MEDS: Lidocaine 5% 700 MG Patch TOP SCH (09:56)
[2017-02-20] MEDS: LORazepam 0.5 MG Tab PO SCH (15:00)
[2017-02-20] MEDS: Bisacodyl 10 MG Supp RECTAL PRN (15:03)
[2017-02-20] MEDS: Amitriptyline 25 MG Tab PO SCH (17:46)
[2017-02-20] MEDS: Nicotine 21 MG/24 Hr Patch TRDERM SCH (17:46)
[2017-02-20] MEDS: QUEtiapine 25 MG Tab PO SCH (19:40)
[2017-02-21] MEDS: Divalproex Sodium Delayed-Release 250 MG Tab.CR PO SCH ×3 (07:40→17:26)
[2017-02-21] MEDS: Magnesium Oxide 400 MG Tab PO SCH ×2 (07:40→17:28)
[2017-02-21] MEDS: Gabapentin 300 MG Cap PO SCH ×2 (07:41→17:29)
[2017-02-21] MEDS: Acetaminophen/HYDROcodone 325-5 MG Tab PO SCH (07:42)
[2017-02-21] MEDS: PARoxetine 20 MG Tab PO SCH (07:42)
[2017-02-21] MEDS: Acetaminophen 500 MG Tab PO SCH ×3 (07:44→17:30)
[2017-02-21] MEDS: buPROPion 150 MG Tab.ER PO SCH (07:45)
[2017-02-21] MEDS: ALPRAZolam 1 MG Tab PO SCH (07:46)
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
[2017-02-21] MEDS: Lidocaine 5% 700 MG Patch TOP SCH (10:42)
[2017-02-21] MEDS: LORazepam 1 MG Tab PO SCH ×3 (12:04→19:22)
[2017-02-21] MEDS: Bisacodyl 10 MG Supp RECTAL PRN (16:27)
[2017-02-21] MEDS: Nicotine 21 MG/24 Hr Patch TRDERM SCH (17:27)
[2017-02-21] MEDS: Amitriptyline 25 MG Tab PO SCH (17:27)
[2017-02-21] MEDS: Polyethylene Glycol 3350 Powder 510 GM Bot PO SCH (19:24)
[2017-02-21] MEDS: QUEtiapine 25 MG Tab PO SCH (19:24)
[2017-02-22] MEDS: LORazepam 1 MG Tab PO SCH ×4 (08:02→19:21)
[2017-02-22] MEDS: Divalproex Sodium Delayed-Release 250 MG Tab.CR PO SCH ×3 (08:03→18:09)
[2017-02-22] MEDS: Magnesium Oxide 400 MG Tab PO SCH ×2 (08:04→18:12)
[2017-02-22] MEDS: Gabapentin 300 MG Cap PO SCH ×2 (08:04→18:12)
[2017-02-22] MEDS: PARoxetine 20 MG Tab PO SCH (08:05)
[2017-02-22] MEDS: buPROPion 150 MG Tab.ER PO SCH (08:06)
[2017-02-22] MEDS: Acetaminophen 500 MG Tab PO SCH ×3 (08:06→18:13)
[2017-02-22] MEDS: Lidocaine 5% 700 MG Patch TOP SCH (09:51)
[2017-02-22] MEDS: Bisacodyl 10 MG Supp RECTAL PRN (13:50)
[2017-02-22] MEDS: Amitriptyline 25 MG Tab PO SCH (18:10)
[2017-02-22] MEDS: Nicotine 21 MG/24 Hr Patch TRDERM SCH (18:11)
[2017-02-22] MEDS: QUEtiapine 25 MG Tab PO SCH (19:22)
[2017-02-23] MEDS: LORazepam 1 MG Tab PO SCH ×4 (07:06→19:00)
[2017-02-23] MEDS: Gabapentin 300 MG Cap PO SCH ×2 (07:08→17:15)
[2017-02-23] MEDS: Magnesium Oxide 400 MG Tab PO SCH ×2 (07:08→17:15)
[2017-02-23] MEDS: Divalproex Sodium Delayed-Release 250 MG Tab.CR PO SCH ×3 (07:08→17:14)
[2017-02-23] MEDS: PARoxetine 20 MG Tab PO SCH (07:09)
[2017-02-23] MEDS: Acetaminophen 500 MG Tab PO SCH ×3 (07:10→17:16)
[2017-02-23] MEDS: buPROPion 150 MG Tab.ER PO SCH (07:11)
[2017-02-23] MEDS: Lidocaine 5% 700 MG Patch TOP SCH (11:00)
[2017-02-23] MEDS: Bisacodyl 10 MG Supp RECTAL PRN (15:54)
[2017-02-23] MEDS: Amitriptyline 25 MG Tab PO SCH (17:14)
[2017-02-23] MEDS: Nicotine 21 MG/24 Hr Patch TRDERM SCH (17:17)
[2017-02-23] MEDS: QUEtiapine 25 MG Tab PO SCH (19:02)
[2017-02-23] MEDS: Polyethylene Glycol 3350 Powder 510 GM Bot PO SCH (19:02)
[2017-02-24] MEDS: LORazepam 1 MG Tab PO SCH ×4 (07:00→19:08)
[2017-02-24] MEDS: Magnesium Oxide 400 MG Tab PO SCH ×2 (07:02→17:03)
[2017-02-24] MEDS: Gabapentin 300 MG Cap PO SCH ×2 (07:02→17:03)
[2017-02-24] MEDS: Divalproex Sodium Delayed-Release 250 MG Tab.CR PO SCH ×3 (07:02→17:01)
[2017-02-24] MEDS: PARoxetine 20 MG Tab PO SCH (07:03)
[2017-02-24] MEDS: Acetaminophen 500 MG Tab PO SCH ×3 (07:03→17:04)
[2017-02-24] MEDS: buPROPion 150 MG Tab.ER PO SCH (07:05)
[2017-02-24] MEDS: Lidocaine 5% 700 MG Patch TOP SCH (10:52)
[2017-02-24] MEDS: Bisacodyl 10 MG Supp RECTAL PRN (15:47)
[2017-02-24] MEDS: Amitriptyline 25 MG Tab PO SCH (17:01)
[2017-02-24] MEDS: Nicotine 21 MG/24 Hr Patch TRDERM SCH (17:02)
[2017-02-24] MEDS: QUEtiapine 25 MG Tab PO SCH (19:09)
[2017-02-25] MEDS: LORazepam 1 MG Tab PO SCH ×4 (07:00→20:18)
[2017-02-25] MEDS: Divalproex Sodium Delayed-Release 250 MG Tab.CR PO SCH ×3 (07:01→17:06)
[2017-02-25] MEDS: PARoxetine 20 MG Tab PO SCH (07:02)
[2017-02-25] MEDS: Magnesium Oxide 400 MG Tab PO SCH ×2 (07:02→17:10)
[2017-02-25] MEDS: Gabapentin 300 MG Cap PO SCH ×2 (07:02→17:11)
[2017-02-25] MEDS: Acetaminophen 500 MG Tab PO SCH ×3 (07:03→17:11)
[2017-02-25] MEDS: buPROPion 150 MG Tab.ER PO SCH (07:04)
[2017-02-25] MEDS: Lidocaine 5% 700 MG Patch TOP SCH (10:41)
[2017-02-25] MEDS: Bisacodyl 10 MG Supp RECTAL PRN (14:50)
[2017-02-25] MEDS: Amitriptyline 25 MG Tab PO SCH (17:06)
[2017-02-25] MEDS: Nicotine 21 MG/24 Hr Patch TRDERM SCH (17:07)
[2017-02-25] MEDS: QUEtiapine 25 MG Tab PO SCH (20:22)
[2017-02-26] MEDS: LORazepam 1 MG Tab PO SCH ×4 (07:18→19:27)
[2017-02-26] MEDS: Gabapentin 300 MG Cap PO SCH ×2 (07:20→17:21)
[2017-02-26] MEDS: Divalproex Sodium Delayed-Release 250 MG Tab.CR PO SCH ×3 (07:20→17:16)
[2017-02-26] MEDS: PARoxetine 20 MG Tab PO SCH (07:20)
[2017-02-26] MEDS: buPROPion 150 MG Tab.ER PO SCH (07:20)
[2017-02-26] MEDS: Magnesium Oxide 400 MG Tab PO SCH ×2 (07:21→17:20)
[2017-02-26] MEDS: Acetaminophen 500 MG Tab PO SCH ×3 (07:22→17:21)
[2017-02-26] MEDS: Lidocaine 5% 700 MG Patch TOP SCH (09:54)
[2017-02-26] MEDS: QUEtiapine 25 MG Tab PO SCH ×2 (11:16→19:29)
[2017-02-26] MEDS: Bisacodyl 10 MG Supp RECTAL PRN (15:35)
[2017-02-26] MEDS: Amitriptyline 25 MG Tab PO SCH (17:17)
[2017-02-26] MEDS: Nicotine 21 MG/24 Hr Patch TRDERM SCH (17:19)
[2017-02-26] MEDS: Polyethylene Glycol 3350 Powder 510 GM Bot PO SCH (19:27)
[2017-02-27] MEDS: LORazepam 1 MG Tab PO SCH ×2 (07:27→11:46)
[2017-02-27] MEDS: Divalproex Sodium Delayed-Release 250 MG Tab.CR PO SCH ×3 (07:30→18:18)
[2017-02-27] MEDS: Magnesium Oxide 400 MG Tab PO SCH ×2 (07:31→18:17)
[2017-02-27] MEDS: PARoxetine 20 MG Tab PO SCH (07:32)
[2017-02-27] MEDS: Gabapentin 300 MG Cap PO SCH ×2 (07:32→18:16)
[2017-02-27] MEDS: QUEtiapine 25 MG Tab PO SCH ×2 (07:35→19:22)
[2017-02-27] MEDS: Acetaminophen 500 MG Tab PO SCH ×3 (07:37→18:20)
[2017-02-27] MEDS: buPROPion 150 MG Tab.ER PO SCH (07:39)
[2017-02-27 08:15] LABS: CHLORIDE,CL 103 mmol/L (98-107); SODIUM,NA 138 mmol/L (136-145)
[2017-02-27] MEDS: Lidocaine 5% 700 MG Patch TOP SCH (11:44)
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
[2017-02-27] MEDS ORDERED: ALPRAZolam 1 MG Tab PO ONE (15:55)
[2017-02-27] MEDS ORDERED: ALPRAZolam 1 MG Tab PO SCH (18:00)
[2017-02-27] MEDS: Nicotine 21 MG/24 Hr Patch TRDERM SCH (18:17)
[2017-02-27] MEDS: Amitriptyline 25 MG Tab PO SCH (18:19)
[2017-02-27] MEDS: ALPRAZolam 1 MG Tab PO SCH (19:24)
[2017-02-28] MEDS: Bisacodyl 10 MG Supp RECTAL PRN (06:24)
[2017-02-28] MEDS: ALPRAZolam 1 MG Tab PO SCH ×4 (07:11→21:12)
[2017-02-28] MEDS: Gabapentin 300 MG Cap PO SCH ×2 (07:14→21:02)
[2017-02-28] MEDS: Magnesium Oxide 400 MG Tab PO SCH ×2 (07:14→21:01)
[2017-02-28] MEDS: Divalproex Sodium Delayed-Release 250 MG Tab.CR PO SCH ×3 (07:14→20:58)
[2017-02-28] MEDS: PARoxetine 20 MG Tab PO SCH (07:15)
[2017-02-28] MEDS: Acetaminophen 500 MG Tab PO SCH ×3 (07:16→21:05)
[2017-02-28] MEDS: QUEtiapine 25 MG Tab PO SCH ×2 (07:16→21:07)
[2017-02-28] MEDS: Lidocaine 5% 700 MG Patch TOP SCH (11:05)
[2017-02-28] MEDS: Amitriptyline 25 MG Tab PO SCH (20:59)
[2017-02-28] MEDS: Nicotine 21 MG/24 Hr Patch TRDERM SCH ×2 (21:01→21:18)
[2017-02-28] MEDS: buPROPion 150 MG Tab.ER PO SCH (21:06)
[2017-02-28] MEDS: Polyethylene Glycol 3350 Powder 510 GM Bot PO SCH (21:06)
[2017-03-01] MEDS: ALPRAZolam 1 MG Tab PO SCH ×4 (07:09→19:41)
[2017-03-01] MEDS: Magnesium Oxide 400 MG Tab PO SCH ×2 (07:10→17:13)
[2017-03-01] MEDS: Acetaminophen 500 MG Tab PO SCH ×3 (07:11→17:15)
[2017-03-01] MEDS: Divalproex Sodium Delayed-Release 250 MG Tab.CR PO SCH ×3 (07:15→17:12)
[2017-03-01] MEDS: Gabapentin 300 MG Cap PO SCH ×2 (07:15→17:14)
[2017-03-01] MEDS: QUEtiapine 25 MG Tab PO SCH ×2 (07:16→19:40)
[2017-03-01] MEDS: PARoxetine 20 MG Tab PO SCH (07:16)
[2017-03-01] MEDS: Lidocaine 5% 700 MG Patch TOP SCH (10:57)
[2017-03-01] MEDS: Nicotine 21 MG/24 Hr Patch TRDERM SCH (17:05)
[2017-03-01] MEDS: Amitriptyline 25 MG Tab PO SCH (17:13)
[2017-03-01] MEDS: buPROPion 150 MG Tab.ER PO SCH (17:15)
[2017-03-02] MEDS: ALPRAZolam 1 MG Tab PO SCH (07:51)
[2017-03-02] MEDS: Divalproex Sodium Delayed-Release 250 MG Tab.CR PO SCH ×3 (07:52→17:20)
[2017-03-02] MEDS: Gabapentin 300 MG Cap PO SCH ×2 (07:53→17:22)
[2017-03-02] MEDS: PARoxetine 20 MG Tab PO SCH (07:53)
[2017-03-02] MEDS: Magnesium Oxide 400 MG Tab PO SCH ×2 (07:53→17:21)
[2017-03-02] MEDS: QUEtiapine 25 MG Tab PO SCH ×2 (07:55→19:47)
[2017-03-02] MEDS: Acetaminophen 500 MG Tab PO SCH ×3 (07:55→17:23)
[2017-03-02] MEDS: Lidocaine 5% 700 MG Patch TOP SCH (11:24)
[2017-03-02] MEDS: LORazepam 1 MG Tab PO SCH ×3 (11:26→19:48)
[2017-03-02] MEDS: Amitriptyline 25 MG Tab PO SCH (17:21)
[2017-03-02] MEDS: buPROPion 150 MG Tab.ER PO SCH (17:25)
[2017-03-02] MEDS: Nicotine 21 MG/24 Hr Patch TRDERM SCH (17:27)
[2017-03-02] MEDS: Polyethylene Glycol 3350 Powder 510 GM Bot PO SCH (19:52)
[2017-03-03] MEDS: Magnesium Oxide 400 MG Tab PO SCH ×2 (07:26→17:31)
[2017-03-03] MEDS: Divalproex Sodium Delayed-Release 250 MG Tab.CR PO SCH ×3 (07:26→17:28)
[2017-03-03] MEDS: PARoxetine 20 MG Tab PO SCH (07:27)
[2017-03-03] MEDS: Gabapentin 300 MG Cap PO SCH ×2 (07:27→17:31)
[2017-03-03] MEDS: Acetaminophen 500 MG Tab PO SCH ×3 (07:28→17:32)
[2017-03-03] MEDS: QUEtiapine 25 MG Tab PO SCH ×2 (07:28→19:29)
[2017-03-03] MEDS: LORazepam 1 MG Tab PO SCH ×4 (07:30→19:29)
[2017-03-03] MEDS: Lidocaine 5% 700 MG Patch TOP SCH (10:30)
[2017-03-03] MEDS: Nicotine 21 MG/24 Hr Patch TRDERM SCH (17:30)
[2017-03-03] MEDS: Amitriptyline 25 MG Tab PO SCH (17:30)
[2017-03-03] MEDS: buPROPion 150 MG Tab.ER PO SCH (17:33)
[2017-03-04] MEDS: LORazepam 1 MG Tab PO SCH ×4 (07:01→19:30)
[2017-03-04] MEDS: Magnesium Oxide 400 MG Tab PO SCH ×2 (07:02→17:05)
[2017-03-04] MEDS: Divalproex Sodium Delayed-Release 250 MG Tab.CR PO SCH ×3 (07:02→17:04)
[2017-03-04] MEDS: PARoxetine 20 MG Tab PO SCH (07:03)
[2017-03-04] MEDS: Gabapentin 300 MG Cap PO SCH ×2 (07:03→17:07)
[2017-03-04] MEDS: QUEtiapine 25 MG Tab PO SCH ×2 (07:05→19:31)
[2017-03-04] MEDS: Acetaminophen 500 MG Tab PO SCH ×3 (07:05→17:08)
[2017-03-04] MEDS: Lidocaine 5% 700 MG Patch TOP SCH (11:24)
[2017-03-04] MEDS: Bisacodyl 10 MG Supp RECTAL PRN (15:21)
[2017-03-04] MEDS: Amitriptyline 25 MG Tab PO SCH (17:04)
[2017-03-04] MEDS: Nicotine 21 MG/24 Hr Patch TRDERM SCH (17:06)
[2017-03-04] MEDS: buPROPion 150 MG Tab.ER PO SCH (17:09)
[2017-03-05] MEDS: LORazepam 1 MG Tab PO SCH ×4 (07:09→19:16)
[2017-03-05] MEDS: Magnesium Oxide 400 MG Tab PO SCH ×2 (07:11→18:09)
[2017-03-05] MEDS: Divalproex Sodium Delayed-Release 250 MG Tab.CR PO SCH ×3 (07:11→18:07)
[2017-03-05] MEDS: Gabapentin 300 MG Cap PO SCH ×2 (07:12→18:10)
[2017-03-05] MEDS: PARoxetine 20 MG Tab PO SCH (07:12)
[2017-03-05] MEDS: Acetaminophen 500 MG Tab PO SCH ×3 (07:13→18:10)
[2017-03-05] MEDS: QUEtiapine 25 MG Tab PO SCH ×2 (07:13→19:18)
[2017-03-05] MEDS: Lidocaine 5% 700 MG Patch TOP SCH (11:00)
[2017-03-05] MEDS: Amitriptyline 25 MG Tab PO SCH (18:08)
[2017-03-05] MEDS: Nicotine 21 MG/24 Hr Patch TRDERM SCH (18:08)
[2017-03-05] MEDS: buPROPion 150 MG Tab.ER PO SCH (18:11)
[2017-03-05] MEDS: Polyethylene Glycol 3350 Powder 510 GM Bot PO SCH (19:17)
[2017-03-06] MEDS: LORazepam 1 MG Tab PO SCH ×4 (07:35→19:40)
[2017-03-06] MEDS: Magnesium Oxide 400 MG Tab PO SCH ×2 (07:37→17:29)
[2017-03-06] MEDS: Divalproex Sodium Delayed-Release 250 MG Tab.CR PO SCH ×3 (07:37→17:27)
[2017-03-06] MEDS: Gabapentin 300 MG Cap PO SCH ×2 (07:38→17:30)
[2017-03-06] MEDS: PARoxetine 20 MG Tab PO SCH (07:38)
[2017-03-06] MEDS: QUEtiapine 25 MG Tab PO SCH ×2 (07:39→19:40)
[2017-03-06] MEDS: Acetaminophen 500 MG Tab PO SCH ×3 (07:40→17:31)
[2017-03-06] MEDS: Lidocaine 5% 700 MG Patch TOP SCH (11:03)
[2017-03-06] MEDS: Amitriptyline 25 MG Tab PO SCH (17:28)
[2017-03-06] MEDS: Nicotine 21 MG/24 Hr Patch TRDERM SCH (17:29)
[2017-03-06] MEDS: buPROPion 150 MG Tab.ER PO SCH (17:31)
[2017-03-07] MEDS: LORazepam 1 MG Tab PO SCH ×4 (07:05→19:34)
[2017-03-07] MEDS: Magnesium Oxide 400 MG Tab PO SCH ×2 (07:07→17:40)
[2017-03-07] MEDS: Divalproex Sodium Delayed-Release 250 MG Tab.CR PO SCH ×3 (07:07→17:36)
[2017-03-07] MEDS: PARoxetine 20 MG Tab PO SCH (07:08)
[2017-03-07] MEDS: Gabapentin 300 MG Cap PO SCH ×2 (07:08→17:40)
[2017-03-07] MEDS: Acetaminophen 500 MG Tab PO SCH ×3 (07:09→17:42)
[2017-03-07] MEDS: QUEtiapine 25 MG Tab PO SCH ×2 (07:09→19:36)
[2017-03-07] MEDS: Lidocaine 5% 700 MG Patch TOP SCH (11:02)
[2017-03-07] MEDS: Amitriptyline 25 MG Tab PO SCH (17:37)
[2017-03-07] MEDS: Nicotine 21 MG/24 Hr Patch TRDERM SCH (17:39)
[2017-03-07] MEDS: buPROPion 150 MG Tab.ER PO SCH (17:43)
[2017-03-07] MEDS: Polyethylene Glycol 3350 Powder 510 GM Bot PO SCH (19:35)
[2017-03-08] MEDS: LORazepam 1 MG Tab PO SCH ×4 (07:06→19:26)
[2017-03-08] MEDS: Divalproex Sodium Delayed-Release 250 MG Tab.CR PO SCH ×3 (07:08→17:19)
[2017-03-08] MEDS: Gabapentin 300 MG Cap PO SCH ×2 (07:08→17:21)
[2017-03-08] MEDS: Magnesium Oxide 400 MG Tab PO SCH ×2 (07:08→17:20)
[2017-03-08] MEDS: PARoxetine 20 MG Tab PO SCH (07:09)
[2017-03-08] MEDS: QUEtiapine 25 MG Tab PO SCH ×2 (07:11→19:28)
[2017-03-08] MEDS: Acetaminophen 500 MG Tab PO SCH ×3 (07:13→17:22)
[2017-03-08] MEDS: Lidocaine 5% 700 MG Patch TOP SCH (10:54)
[2017-03-08] MEDS: Bisacodyl 10 MG Supp RECTAL PRN (13:06)
[2017-03-08] MEDS: Amitriptyline 25 MG Tab PO SCH (17:19)
[2017-03-08] MEDS: Nicotine 21 MG/24 Hr Patch TRDERM SCH (17:20)
[2017-03-08] MEDS: buPROPion 150 MG Tab.ER PO SCH (17:22)
[2017-03-09] MEDS: Magnesium Oxide 400 MG Tab PO SCH ×2 (07:35→18:04)
[2017-03-09] MEDS: Divalproex Sodium Delayed-Release 250 MG Tab.CR PO SCH ×3 (07:35→18:02)
[2017-03-09] MEDS: Gabapentin 300 MG Cap PO SCH ×2 (07:36→18:04)
[2017-03-09] MEDS: PARoxetine 20 MG Tab PO SCH (07:36)
[2017-03-09] MEDS: Acetaminophen 500 MG Tab PO SCH ×3 (07:38→18:06)
[2017-03-09] MEDS: QUEtiapine 25 MG Tab PO SCH ×2 (07:38→19:47)
[2017-03-09] MEDS: LORazepam 1 MG Tab PO SCH ×4 (07:40→19:46)
[2017-03-09] MEDS: Lidocaine 5% 700 MG Patch TOP SCH (10:41)
[2017-03-09] MEDS: Amitriptyline 25 MG Tab PO SCH (18:03)
[2017-03-09] MEDS: buPROPion 150 MG Tab.ER PO SCH (18:07)
[2017-03-09] MEDS: Nicotine 21 MG/24 Hr Patch TRDERM SCH (18:10)
[2017-03-09] MEDS: Polyethylene Glycol 3350 Powder 510 GM Bot PO SCH (19:48)
[2017-03-10] MEDS: LORazepam 1 MG Tab PO SCH ×4 (07:03→19:32)
[2017-03-10] MEDS: Divalproex Sodium Delayed-Release 250 MG Tab.CR PO SCH ×3 (07:05→18:03)
[2017-03-10] MEDS: Gabapentin 300 MG Cap PO SCH ×2 (07:05→18:05)
[2017-03-10] MEDS: Magnesium Oxide 400 MG Tab PO SCH ×2 (07:05→18:04)
[2017-03-10] MEDS: PARoxetine 20 MG Tab PO SCH (07:06)
[2017-03-10] MEDS: QUEtiapine 25 MG Tab PO SCH ×2 (07:06→19:30)
[2017-03-10] MEDS: Acetaminophen 500 MG Tab PO SCH ×3 (07:08→18:05)
[2017-03-10] MEDS: Lidocaine 5% 700 MG Patch TOP SCH (10:00)
[2017-03-10] MEDS: Amitriptyline 25 MG Tab PO SCH (18:04)
[2017-03-10] MEDS: Nicotine 21 MG/24 Hr Patch TRDERM SCH (18:04)
[2017-03-10] MEDS: buPROPion 150 MG Tab.ER PO SCH (18:06)
[2017-03-11] MEDS: LORazepam 1 MG Tab PO SCH ×4 (07:09→20:00)
[2017-03-11] MEDS: Divalproex Sodium Delayed-Release 250 MG Tab.CR PO SCH ×3 (07:11→17:18)
[2017-03-11] MEDS: Gabapentin 300 MG Cap PO SCH ×2 (07:12→17:22)
[2017-03-11] MEDS: Magnesium Oxide 400 MG Tab PO SCH ×2 (07:12→17:21)
[2017-03-11] MEDS: PARoxetine 20 MG Tab PO SCH (07:13)
[2017-03-11] MEDS: QUEtiapine 25 MG Tab PO SCH ×2 (07:15→20:02)
[2017-03-11] MEDS: Acetaminophen 500 MG Tab PO SCH ×3 (07:16→17:23)
[2017-03-11] MEDS: Lidocaine 5% 700 MG Patch TOP SCH (10:49)
[2017-03-11] MEDS: Amitriptyline 25 MG Tab PO SCH (17:19)
[2017-03-11] MEDS: Nicotine 21 MG/24 Hr Patch TRDERM SCH (17:21)
[2017-03-11] MEDS: buPROPion 150 MG Tab.ER PO SCH (17:24)
[2017-03-12] MEDS: LORazepam 1 MG Tab PO SCH ×4 (07:04→19:47)
[2017-03-12] MEDS: Divalproex Sodium Delayed-Release 250 MG Tab.CR PO SCH ×3 (07:07→17:23)
[2017-03-12] MEDS: Magnesium Oxide 400 MG Tab PO SCH ×2 (07:07→17:25)
[2017-03-12] MEDS: Gabapentin 300 MG Cap PO SCH ×2 (07:08→17:26)
[2017-03-12] MEDS: PARoxetine 20 MG Tab PO SCH (07:08)
[2017-03-12] MEDS: QUEtiapine 25 MG Tab PO SCH ×2 (07:10→19:50)
[2017-03-12] MEDS: Acetaminophen 500 MG Tab PO SCH ×3 (07:10→17:26)
[2017-03-12] MEDS: Lidocaine 5% 700 MG Patch TOP SCH (11:42)
[2017-03-12] MEDS: Amitriptyline 25 MG Tab PO SCH (17:23)
[2017-03-12] MEDS: Nicotine 21 MG/24 Hr Patch TRDERM SCH (17:25)
[2017-03-12] MEDS: buPROPion 150 MG Tab.ER PO SCH (17:28)
[2017-03-12] MEDS: Polyethylene Glycol 3350 Powder 510 GM Bot PO SCH (19:46)
[2017-03-13] MEDS: Divalproex Sodium Delayed-Release 250 MG Tab.CR PO SCH ×3 (07:56→17:37)
[2017-03-13] MEDS: Magnesium Oxide 400 MG Tab PO SCH ×2 (07:57→17:39)
[2017-03-13] MEDS: Gabapentin 300 MG Cap PO SCH ×2 (07:58→17:39)
[2017-03-13] MEDS: PARoxetine 20 MG Tab PO SCH (07:58)
[2017-03-13] MEDS: QUEtiapine 25 MG Tab PO SCH ×2 (07:59→19:42)
[2017-03-13] MEDS: Acetaminophen 500 MG Tab PO SCH ×3 (08:00→17:40)
[2017-03-13] MEDS: LORazepam 1 MG Tab PO SCH ×4 (08:01→19:41)
[2017-03-13] MEDS: Lidocaine 5% 700 MG Patch TOP SCH (11:12)
[2017-03-13] MEDS: Amitriptyline 25 MG Tab PO SCH (17:38)
[2017-03-13] MEDS: buPROPion 150 MG Tab.ER PO SCH (17:40)
[2017-03-13] MEDS: Nicotine 21 MG/24 Hr Patch TRDERM SCH (17:41)
[2017-03-14] MEDS: LORazepam 1 MG Tab PO SCH ×4 (07:17→20:42)
[2017-03-14] MEDS: Divalproex Sodium Delayed-Release 250 MG Tab.CR PO SCH ×3 (07:18→18:00)
[2017-03-14] MEDS: Magnesium Oxide 400 MG Tab PO SCH ×2 (07:18→18:02)
[2017-03-14] MEDS: PARoxetine 20 MG Tab PO SCH (07:19)
[2017-03-14] MEDS: Gabapentin 300 MG Cap PO SCH ×2 (07:19→18:03)
[2017-03-14] MEDS: Acetaminophen 500 MG Tab PO SCH ×3 (07:20→18:04)
[2017-03-14] MEDS: QUEtiapine 25 MG Tab PO SCH ×2 (07:20→20:43)
[2017-03-14] MEDS: Lidocaine 5% 700 MG Patch TOP SCH (09:56)
[2017-03-14] MEDS: Amitriptyline 25 MG Tab PO SCH (18:00)
[2017-03-14] MEDS: Nicotine 21 MG/24 Hr Patch TRDERM SCH (18:02)
[2017-03-14] MEDS: buPROPion 150 MG Tab.ER PO SCH (18:07)
[2017-03-14] MEDS: Polyethylene Glycol 3350 Powder 510 GM Bot PO SCH (20:43)
[2017-03-15] MEDS: LORazepam 1 MG Tab PO SCH ×4 (07:29→19:53)
[2017-03-15] MEDS: Magnesium Oxide 400 MG Tab PO SCH ×2 (07:30→18:14)
[2017-03-15] MEDS: Gabapentin 300 MG Cap PO SCH ×2 (07:30→18:15)
[2017-03-15] MEDS: Divalproex Sodium Delayed-Release 250 MG Tab.CR PO SCH ×3 (07:30→18:13)
[2017-03-15] MEDS: PARoxetine 20 MG Tab PO SCH (07:31)
[2017-03-15] MEDS: QUEtiapine 25 MG Tab PO SCH ×2 (07:31→19:55)
[2017-03-15] MEDS: Acetaminophen 500 MG Tab PO SCH ×3 (07:32→18:15)
[2017-03-15] MEDS: Lidocaine 5% 700 MG Patch TOP SCH (10:16)
--- NOTE | 2017-03-15 10:50 | PCM.SN ---
- Free Text/Narrative Note: Patient with persistent recurrent falls and continues to be noncompliant with retail assistant request with ambulation as previously ordered. Chest x-ray with rib films yesterday were apparently negative with evaluation by [facility] physician at that time. Medications reviewed. She is on multiple medications, which would increase current fall risk, with strict fall precautions already previously initiated as above. Secondary to patient noncompliance with these instructions her amitriptyline will be discontinued at this time with consideration of further decrease of her Ativan, etc. in the near future, if she continues to remain noncompliant with our instructions.
[2017-03-15] MEDS: Nicotine 21 MG/24 Hr Patch TRDERM SCH (18:17)
[2017-03-15] MEDS: buPROPion 150 MG Tab.ER PO SCH (18:17)
[2017-03-16] MEDS: LORazepam 1 MG Tab PO SCH ×4 (07:05→23:57)
[2017-03-16] MEDS: Gabapentin 300 MG Cap PO SCH ×2 (07:07→23:56)
[2017-03-16] MEDS: Magnesium Oxide 400 MG Tab PO SCH ×2 (07:07→23:55)
[2017-03-16] MEDS: PARoxetine 20 MG Tab PO SCH (07:07)
[2017-03-16] MEDS: Divalproex Sodium Delayed-Release 250 MG Tab.CR PO SCH ×3 (07:07→23:55)
[2017-03-16] MEDS: Acetaminophen 500 MG Tab PO SCH ×3 (07:09→23:57)
[2017-03-16] MEDS: QUEtiapine 25 MG Tab PO SCH ×2 (07:09→23:58)
[2017-03-16] MEDS: Lidocaine 5% 700 MG Patch TOP SCH (09:40)
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
[2017-03-16] MEDS: Nicotine 21 MG/24 Hr Patch TRDERM SCH (23:54)
[2017-03-16] MEDS: buPROPion 150 MG Tab.ER PO SCH (23:57)
[2017-03-16] MEDS: Polyethylene Glycol 3350 Powder 510 GM Bot PO SCH (23:58)
[2017-03-17] MEDS: LORazepam 1 MG Tab PO SCH ×4 (07:20→19:29)
[2017-03-17] MEDS: Divalproex Sodium Delayed-Release 250 MG Tab.CR PO SCH ×3 (07:21→17:17)
[2017-03-17] MEDS: Gabapentin 300 MG Cap PO SCH ×2 (07:21→17:19)
[2017-03-17] MEDS: Magnesium Oxide 400 MG Tab PO SCH ×2 (07:21→17:19)
[2017-03-17] MEDS: QUEtiapine 25 MG Tab PO SCH ×2 (07:22→19:30)
[2017-03-17] MEDS: PARoxetine 20 MG Tab PO SCH (07:22)
[2017-03-17] MEDS: Acetaminophen 500 MG Tab PO SCH ×3 (07:23→17:20)
[2017-03-17] MEDS: Lidocaine 5% 700 MG Patch TOP SCH (09:14)
[2017-03-17] MEDS: Nicotine 21 MG/24 Hr Patch TRDERM SCH (17:18)
[2017-03-17] MEDS: buPROPion 150 MG Tab.ER PO SCH (17:21)
[2017-03-18] MEDS: LORazepam 1 MG Tab PO SCH ×4 (07:16→19:24)
[2017-03-18] MEDS: Divalproex Sodium Delayed-Release 250 MG Tab.CR PO SCH ×3 (07:17→17:07)
[2017-03-18] MEDS: Gabapentin 300 MG Cap PO SCH ×2 (07:18→17:10)
[2017-03-18] MEDS: Magnesium Oxide 400 MG Tab PO SCH ×2 (07:18→17:09)
[2017-03-18] MEDS: PARoxetine 20 MG Tab PO SCH (07:18)
[2017-03-18] MEDS: QUEtiapine 25 MG Tab PO SCH ×2 (07:19→19:22)
[2017-03-18] MEDS: Acetaminophen 500 MG Tab PO SCH ×3 (07:19→17:11)
[2017-03-18] MEDS: Lidocaine 5% 700 MG Patch TOP SCH (09:13)
[2017-03-18] MEDS: Nicotine 21 MG/24 Hr Patch TRDERM SCH (17:09)
[2017-03-18] MEDS: buPROPion 150 MG Tab.ER PO SCH (17:12)
[2017-03-18] MEDS: Bisacodyl 10 MG Supp RECTAL PRN (18:25)
[2017-03-19] MEDS: Divalproex Sodium Delayed-Release 250 MG Tab.CR PO SCH ×3 (07:56→20:18)
[2017-03-19] MEDS: LORazepam 1 MG Tab PO SCH ×4 (07:56→19:28)
[2017-03-19] MEDS: Magnesium Oxide 400 MG Tab PO SCH ×2 (07:56→19:24)
[2017-03-19] MEDS: Gabapentin 300 MG Cap PO SCH ×2 (07:57→19:25)
[2017-03-19] MEDS: PARoxetine 20 MG Tab PO SCH (07:57)
[2017-03-19] MEDS: QUEtiapine 25 MG Tab PO SCH ×2 (07:58→19:29)
[2017-03-19] MEDS: Acetaminophen 500 MG Tab PO SCH ×3 (07:59→19:25)
[2017-03-19] MEDS: Lidocaine 5% 700 MG Patch TOP SCH (11:00)
[2017-03-19] MEDS: Ibuprofen 200 MG Tab PO PRN (16:21)
[2017-03-19] MEDS: Nicotine 21 MG/24 Hr Patch TRDERM SCH (19:27)
[2017-03-19] MEDS: Polyethylene Glycol 3350 Powder 510 GM Bot PO SCH (19:30)
[2017-03-19] MEDS: DIVALPROEX SODIUM 500 MG PO SCH (19:58)
[2017-03-19] MEDS: BUPROPION 300 MG PO SCH (19:58)
[2017-03-19] MEDS: buPROPion 150 MG Tab.ER PO SCH (20:18)
[2017-03-20] MEDS: LORazepam 1 MG Tab PO SCH ×4 (07:26→19:47)
[2017-03-20] MEDS: Gabapentin 300 MG Cap PO SCH ×2 (07:27→17:19)
[2017-03-20] MEDS: PAROXETINE 40 MG PO SCH (07:27)
[2017-03-20] MEDS: DIVALPROEX SODIUM 500 MG PO SCH ×3 (07:27→17:19)
[2017-03-20] MEDS: Magnesium Oxide 400 MG Tab PO SCH ×2 (07:27→17:18)
[2017-03-20] MEDS: Acetaminophen 500 MG Tab PO SCH ×3 (07:28→17:20)
[2017-03-20] MEDS: QUEtiapine 25 MG Tab PO SCH ×2 (07:28→19:48)
[2017-03-20] MEDS: Bisacodyl 10 MG Supp RECTAL PRN (10:58)
[2017-03-20] MEDS: Lidocaine 5% 700 MG Patch TOP SCH (11:37)
[2017-03-20] MEDS: Nicotine 21 MG/24 Hr Patch TRDERM SCH (17:18)
[2017-03-20] MEDS: BUPROPION 300 MG PO SCH (17:19)
[2017-03-20] MEDS ORDERED: BUPROPION 300 MG PO SCH (18:00)
[2017-03-21] MEDS: DIVALPROEX SODIUM 500 MG PO SCH ×3 (08:07→17:27)
[2017-03-21] MEDS: QUEtiapine 25 MG Tab PO SCH ×2 (08:07→20:00)
[2017-03-21] MEDS: Gabapentin 300 MG Cap PO SCH ×2 (08:07→17:27)
[2017-03-21] MEDS: PAROXETINE 40 MG PO SCH (08:07)
[2017-03-21] MEDS: Acetaminophen 500 MG Tab PO SCH ×3 (08:08→17:28)
[2017-03-21] MEDS: Magnesium Oxide 400 MG Tab PO SCH ×2 (08:08→17:26)
[2017-03-21] MEDS: LORazepam 1 MG Tab PO SCH ×4 (08:09→19:59)
[2017-03-21] MEDS: Menthol/Methyl Salicylate 85 GM Tube TOP PRN (13:53)
[2017-03-21] MEDS: Nicotine 21 MG/24 Hr Patch TRDERM SCH (17:26)
[2017-03-21] MEDS: BUPROPION 300 MG PO SCH (17:27)
[2017-03-21] MEDS: Polyethylene Glycol 3350 Powder 510 GM Bot PO SCH (20:01)
[2017-03-22] MEDS: LORazepam 1 MG Tab PO SCH ×4 (07:08→19:30)
[2017-03-22] MEDS: Gabapentin 300 MG Cap PO SCH ×2 (07:09→17:03)
[2017-03-22] MEDS: Magnesium Oxide 400 MG Tab PO SCH ×2 (07:09→17:03)
[2017-03-22] MEDS: QUEtiapine 25 MG Tab PO SCH ×2 (07:10→19:31)
[2017-03-22] MEDS: PAROXETINE 40 MG PO SCH (07:10)
[2017-03-22] MEDS: DIVALPROEX SODIUM 500 MG PO SCH ×3 (07:10→17:03)
[2017-03-22] MEDS: Acetaminophen 500 MG Tab PO SCH ×3 (07:10→17:04)
[2017-03-22] MEDS: Nicotine 21 MG/24 Hr Patch TRDERM SCH (17:02)
[2017-03-22] MEDS: BUPROPION 300 MG PO SCH (17:03)
[2017-03-23] MEDS: LORazepam 1 MG Tab PO SCH ×4 (07:30→20:08)
[2017-03-23] MEDS: Magnesium Oxide 400 MG Tab PO SCH ×2 (07:30→17:07)
[2017-03-23] MEDS: DIVALPROEX SODIUM 500 MG PO SCH ×3 (07:31→17:07)
[2017-03-23] MEDS: PAROXETINE 40 MG PO SCH (07:31)
[2017-03-23] MEDS: Gabapentin 300 MG Cap PO SCH ×2 (07:31→17:07)
[2017-03-23] MEDS: QUEtiapine 25 MG Tab PO SCH ×2 (07:32→20:09)
[2017-03-23] MEDS: Acetaminophen 500 MG Tab PO SCH ×3 (07:32→17:08)
[2017-03-23] MEDS: Nicotine 21 MG/24 Hr Patch TRDERM SCH (17:06)
[2017-03-23] MEDS: BUPROPION 300 MG PO SCH (17:07)
[2017-03-23] MEDS: Polyethylene Glycol 3350 Powder 510 GM Bot PO SCH (20:08)
[2017-03-24] MEDS: Menthol/Methyl Salicylate 85 GM Tube TOP PRN (06:55)
[2017-03-24] MEDS: LORazepam 1 MG Tab PO SCH ×4 (07:00→19:57)
[2017-03-24] MEDS: Gabapentin 300 MG Cap PO SCH ×2 (07:01→17:12)
[2017-03-24] MEDS: Magnesium Oxide 400 MG Tab PO SCH ×2 (07:01→17:12)
[2017-03-24] MEDS: PAROXETINE 40 MG PO SCH (07:01)
[2017-03-24] MEDS: DIVALPROEX SODIUM 500 MG PO SCH ×3 (07:01→17:12)
[2017-03-24] MEDS: QUEtiapine 25 MG Tab PO SCH ×2 (07:02→19:57)
[2017-03-24] MEDS: Acetaminophen 500 MG Tab PO SCH ×3 (07:02→17:13)
[2017-03-24] MEDS: Nicotine 21 MG/24 Hr Patch TRDERM SCH (17:11)
[2017-03-24] MEDS: BUPROPION 300 MG PO SCH (17:12)
[2017-03-25] MEDS: LORazepam 1 MG Tab PO SCH ×4 (07:15→19:31)
[2017-03-25] MEDS: Magnesium Oxide 400 MG Tab PO SCH ×2 (07:16→17:07)
[2017-03-25] MEDS: Gabapentin 300 MG Cap PO SCH ×2 (07:16→17:08)
[2017-03-25] MEDS: DIVALPROEX SODIUM 500 MG PO SCH ×3 (07:17→17:08)
[2017-03-25] MEDS: PAROXETINE 40 MG PO SCH (07:17)
[2017-03-25] MEDS: QUEtiapine 25 MG Tab PO SCH ×2 (07:17→19:30)
[2017-03-25] MEDS: Acetaminophen 500 MG Tab PO SCH ×3 (07:18→17:10)
[2017-03-25] MEDS: Menthol/Methyl Salicylate 85 GM Tube TOP PRN (14:17)
[2017-03-25] MEDS: Nicotine 21 MG/24 Hr Patch TRDERM SCH (17:07)
[2017-03-25] MEDS: BUPROPION 300 MG PO SCH (17:08)
[2017-03-26] MEDS: LORazepam 1 MG Tab PO SCH ×4 (07:02→19:36)
[2017-03-26] MEDS: Magnesium Oxide 400 MG Tab PO SCH ×2 (07:03→17:01)
[2017-03-26] MEDS: Gabapentin 300 MG Cap PO SCH ×2 (07:04→17:01)
[2017-03-26] MEDS: DIVALPROEX SODIUM 500 MG PO SCH ×3 (07:04→17:01)
[2017-03-26] MEDS: PAROXETINE 40 MG PO SCH (07:04)
[2017-03-26] MEDS: QUEtiapine 25 MG Tab PO SCH ×2 (07:04→19:39)
[2017-03-26] MEDS: Acetaminophen 500 MG Tab PO SCH ×3 (07:05→17:03)
[2017-03-26] MEDS: BUPROPION 300 MG PO SCH (17:01)
[2017-03-26] MEDS: Nicotine 21 MG/24 Hr Patch TRDERM SCH (17:01)
[2017-03-26] MEDS: Polyethylene Glycol 3350 Powder 510 GM Bot PO SCH (19:37)
[2017-03-27] MEDS: LORazepam 1 MG Tab PO SCH ×4 (07:04→19:21)
[2017-03-27] MEDS: Magnesium Oxide 400 MG Tab PO SCH ×2 (07:05→17:13)
[2017-03-27] MEDS: Gabapentin 300 MG Cap PO SCH ×2 (07:05→17:14)
[2017-03-27] MEDS: PAROXETINE 40 MG PO SCH (07:05)
[2017-03-27] MEDS: DIVALPROEX SODIUM 500 MG PO SCH ×3 (07:05→17:15)
[2017-03-27] MEDS: QUEtiapine 25 MG Tab PO SCH ×2 (07:06→19:22)
[2017-03-27] MEDS: Acetaminophen 500 MG Tab PO SCH ×3 (07:06→17:16)
[2017-03-27] MEDS: Nicotine 21 MG/24 Hr Patch TRDERM SCH (17:13)
[2017-03-27] MEDS: BUPROPION 300 MG PO SCH (17:14)
[2017-03-28] MEDS: LORazepam 1 MG Tab PO SCH ×4 (07:09→19:38)
[2017-03-28] MEDS: Magnesium Oxide 400 MG Tab PO SCH ×2 (07:10→16:59)
[2017-03-28] MEDS: Gabapentin 300 MG Cap PO SCH ×2 (07:10→16:59)
[2017-03-28] MEDS: QUEtiapine 25 MG Tab PO SCH ×2 (07:11→19:38)
[2017-03-28] MEDS: PAROXETINE 40 MG PO SCH (07:11)
[2017-03-28] MEDS: DIVALPROEX SODIUM 500 MG PO SCH ×3 (07:11→17:00)
[2017-03-28] MEDS: Acetaminophen 500 MG Tab PO SCH ×3 (07:12→17:01)
[2017-03-28] MEDS: Ibuprofen 200 MG Tab PO PRN (15:25)
[2017-03-28] MEDS: BUPROPION 300 MG PO SCH (17:00)
[2017-03-28] MEDS: Polyethylene Glycol 3350 Powder 510 GM Bot PO SCH (19:38)
[2017-03-29] MEDS: Gabapentin 300 MG Cap PO SCH ×2 (06:59→17:01)
[2017-03-29] MEDS: LORazepam 1 MG Tab PO SCH ×4 (06:59→19:12)
[2017-03-29] MEDS: DIVALPROEX SODIUM 500 MG PO SCH ×3 (07:00→17:02)
[2017-03-29] MEDS: PAROXETINE 40 MG PO SCH (07:00)
[2017-03-29] MEDS: QUEtiapine 25 MG Tab PO SCH ×2 (07:00→19:12)
[2017-03-29] MEDS: Magnesium Oxide 400 MG Tab PO SCH ×2 (07:01→17:01)
[2017-03-29] MEDS: Acetaminophen 500 MG Tab PO SCH ×3 (07:02→17:02)
[2017-03-29 07:55] LABS: CHLORIDE,CL 104 mmol/L (98-107); SODIUM,NA 140 mmol/L (136-145)
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
[2017-03-29] MEDS ORDERED: Levothyroxine 50 MCG Tab PO SCH (10:30)
[2017-03-29] MEDS: BUPROPION 300 MG PO SCH (17:01)
[2017-03-29] MEDS: LEVOTHYROXINE 50 MCG PO SCH (19:12)
[2017-03-30] MEDS: LORazepam 1 MG Tab PO SCH ×4 (07:21→19:41)
[2017-03-30] MEDS: Magnesium Oxide 400 MG Tab PO SCH ×2 (07:22→17:05)
[2017-03-30] MEDS: PAROXETINE 40 MG PO SCH (07:23)
[2017-03-30] MEDS: DIVALPROEX SODIUM 500 MG PO SCH ×3 (07:23→17:06)
[2017-03-30] MEDS: Gabapentin 300 MG Cap PO SCH ×2 (07:23→17:05)
[2017-03-30] MEDS: QUEtiapine 25 MG Tab PO SCH ×2 (07:24→19:43)
[2017-03-30] MEDS: Acetaminophen 500 MG Tab PO SCH ×3 (07:24→17:06)
[2017-03-30] MEDS: Ibuprofen 200 MG Tab PO PRN (14:22)
[2017-03-30] MEDS: BUPROPION 300 MG PO SCH (17:05)
[2017-03-30] MEDS: Polyethylene Glycol 3350 Powder 510 GM Bot PO SCH (19:42)
[2017-03-30] MEDS: LEVOTHYROXINE 50 MCG PO SCH (19:43)
[2017-03-31] MEDS: LORazepam 1 MG Tab PO SCH ×4 (07:31→19:09)
[2017-03-31] MEDS: Magnesium Oxide 400 MG Tab PO SCH ×2 (07:32→17:05)
[2017-03-31] MEDS: Gabapentin 300 MG Cap PO SCH ×2 (07:32→17:05)
[2017-03-31] MEDS: DIVALPROEX SODIUM 500 MG PO SCH ×3 (07:32→17:05)
[2017-03-31] MEDS: PAROXETINE 40 MG PO SCH (07:33)
[2017-03-31] MEDS: QUEtiapine 25 MG Tab PO SCH ×2 (07:33→19:12)
[2017-03-31] MEDS: Acetaminophen 500 MG Tab PO SCH ×3 (07:34→17:06)
[2017-03-31] MEDS: BUPROPION 300 MG PO SCH (17:05)
[2017-03-31] MEDS: LEVOTHYROXINE 50 MCG PO SCH (19:12)
[2017-04-01] MEDS: LORazepam 1 MG Tab PO SCH ×4 (07:27→19:34)
[2017-04-01] MEDS: Gabapentin 300 MG Cap PO SCH ×2 (07:28→16:59)
[2017-04-01] MEDS: Magnesium Oxide 400 MG Tab PO SCH ×2 (07:28→16:59)
[2017-04-01] MEDS: PAROXETINE 40 MG PO SCH (07:29)
[2017-04-01] MEDS: DIVALPROEX SODIUM 500 MG PO SCH ×3 (07:29→17:00)
[2017-04-01] MEDS: QUEtiapine 25 MG Tab PO SCH ×2 (07:29→19:33)
[2017-04-01] MEDS: Acetaminophen 500 MG Tab PO SCH ×3 (07:31→17:00)
[2017-04-01] MEDS: BUPROPION 300 MG PO SCH (17:00)
[2017-04-01] MEDS: LEVOTHYROXINE 50 MCG PO SCH (19:33)
[2017-04-02] MEDS: LORazepam 1 MG Tab PO SCH ×4 (07:00→19:41)
[2017-04-02] MEDS: Gabapentin 300 MG Cap PO SCH ×2 (07:01→17:43)
[2017-04-02] MEDS: PAROXETINE 40 MG PO SCH (07:01)
[2017-04-02] MEDS: DIVALPROEX SODIUM 500 MG PO SCH ×3 (07:01→17:44)
[2017-04-02] MEDS: Magnesium Oxide 400 MG Tab PO SCH ×2 (07:01→17:41)
[2017-04-02] MEDS: QUEtiapine 25 MG Tab PO SCH ×2 (07:02→19:42)
[2017-04-02] MEDS: Acetaminophen 500 MG Tab PO SCH ×3 (07:02→17:45)
[2017-04-02] MEDS: Ibuprofen 200 MG Tab PO PRN (11:55)
[2017-04-02] MEDS: BUPROPION 300 MG PO SCH (17:43)
[2017-04-02] MEDS: Polyethylene Glycol 3350 Powder 510 GM Bot PO SCH (19:41)
[2017-04-02] MEDS: LEVOTHYROXINE 50 MCG PO SCH (19:42)
[2017-04-03] MEDS: LORazepam 1 MG Tab PO SCH ×3 (07:35→20:00)
[2017-04-03] MEDS: DIVALPROEX SODIUM 500 MG PO SCH ×3 (07:36→17:20)
[2017-04-03] MEDS: Gabapentin 300 MG Cap PO SCH ×2 (07:36→17:20)
[2017-04-03] MEDS: PAROXETINE 40 MG PO SCH (07:36)
[2017-04-03] MEDS: Magnesium Oxide 400 MG Tab PO SCH ×2 (07:36→17:20)
[2017-04-03] MEDS: QUEtiapine 25 MG Tab PO SCH ×2 (07:37→20:03)
[2017-04-03] MEDS: Acetaminophen 500 MG Tab PO SCH ×3 (07:37→17:21)
[2017-04-03] MEDS: Ibuprofen 200 MG Tab PO PRN (08:49)
[2017-04-03] MEDS ORDERED: Ketorolac 30 MG/ML SDV IVPUSH ONE (12:00)
[2017-04-03] MEDS ORDERED: diphenhydrAMINE 50 MG/ML SDV IVPUSH ONE (12:00)
[2017-04-03] MEDS ORDERED: Metoclopramide 10 MG/2 ML SDV IVPUSH ONE (12:00)
[2017-04-03] MEDS: Sodium Chloride 0.9% 10 ML Syringe FLUSH PRN ×2 (12:52→13:07)
[2017-04-03] MEDS: BUPROPION 300 MG PO SCH (17:20)
[2017-04-03] MEDS: Sodium Chloride 0.9% 10 ML Syringe FLUSH SCH (20:02)
[2017-04-03] MEDS: LEVOTHYROXINE 50 MCG PO SCH (20:03)
[2017-04-04] MEDS: Ibuprofen 200 MG Tab PO PRN (05:39)
[2017-04-04] MEDS: Gabapentin 300 MG Cap PO SCH ×3 (07:47→19:16)
[2017-04-04] MEDS: PAROXETINE 40 MG PO SCH (07:48)
[2017-04-04] MEDS: QUEtiapine 25 MG Tab PO SCH ×2 (07:48→19:17)
[2017-04-04] MEDS: DIVALPROEX SODIUM 500 MG PO SCH ×3 (07:48→19:14)
[2017-04-04] MEDS: LORazepam 1 MG Tab PO SCH ×4 (07:49→19:16)
[2017-04-04] MEDS: Magnesium Oxide 400 MG Tab PO SCH ×2 (07:50→19:13)
[2017-04-04] MEDS: Sodium Chloride 0.9% 10 ML Syringe FLUSH SCH (07:51)
[2017-04-04] MEDS: Acetaminophen 500 MG Tab PO SCH ×3 (07:52→19:15)
[2017-04-04] MEDS ORDERED: SUMAtriptan 6 MG/0.5 ML SDV SUBCUT ONE (11:00)
[2017-04-04] MEDS ORDERED: SUMAtriptan 6 MG/0.5 ML SDV SUBCUT PRN (12:00)
[2017-04-04] MEDS: BUPROPION 300 MG PO SCH (19:14)
[2017-04-04] MEDS: LEVOTHYROXINE 50 MCG PO SCH (19:17)
[2017-04-04] MEDS: Polyethylene Glycol 3350 Powder 510 GM Bot PO SCH (19:17)
[2017-04-05] MEDS: Ibuprofen 200 MG Tab PO PRN ×2 (05:22→15:47)
[2017-04-05] MEDS: LORazepam 1 MG Tab PO SCH ×4 (06:58→19:47)
[2017-04-05] MEDS: Magnesium Oxide 400 MG Tab PO SCH ×2 (06:59→17:09)
[2017-04-05] MEDS: DIVALPROEX SODIUM 500 MG PO SCH ×3 (06:59→17:09)
[2017-04-05] MEDS: Gabapentin 300 MG Cap PO SCH ×3 (06:59→19:46)
[2017-04-05] MEDS: PAROXETINE 40 MG PO SCH (06:59)
[2017-04-05] MEDS: QUEtiapine 25 MG Tab PO SCH ×2 (07:00→19:46)
[2017-04-05] MEDS: Acetaminophen 500 MG Tab PO SCH ×3 (07:01→19:49)
[2017-04-05] MEDS: SUMAtriptan 50 MG Tab PO PRN ×2 (10:42→16:25)
[2017-04-05] MEDS: BUPROPION 300 MG PO SCH (17:09)
[2017-04-05] MEDS: LEVOTHYROXINE 50 MCG PO SCH (19:46)
[2017-04-06] MEDS: Ibuprofen 200 MG Tab PO PRN ×3 (03:53→19:06)
[2017-04-06] MEDS: LORazepam 1 MG Tab PO SCH ×4 (07:00→19:03)
[2017-04-06] MEDS: Gabapentin 300 MG Cap PO SCH ×3 (07:04→19:04)
[2017-04-06] MEDS: Magnesium Oxide 400 MG Tab PO SCH ×2 (07:04→17:00)
[2017-04-06] MEDS: PAROXETINE 40 MG PO SCH (07:05)
[2017-04-06] MEDS: DIVALPROEX SODIUM 500 MG PO SCH ×3 (07:05→17:00)
[2017-04-06] MEDS: Acetaminophen 500 MG Tab PO SCH ×3 (07:05→17:01)
[2017-04-06] MEDS: QUEtiapine 25 MG Tab PO SCH ×2 (07:05→19:05)
[2017-04-06] MEDS: SUMAtriptan 50 MG Tab PO PRN ×2 (07:06→12:41)
[2017-04-06] MEDS ORDERED: FLU Vacc QS 2017-18 (36mos UP)/PF 60 MCG/0.5 ML Syringe IM ONE (13:00)
[2017-04-06] MEDS ORDERED: Pneumococcal 13-Valent Conjugate Vaccine 0.5 ML Syringe IM ONE (13:00)
[2017-04-06] MEDS: Menthol/Methyl Salicylate 85 GM Tube TOP PRN (16:34)
[2017-04-06] MEDS: BUPROPION 300 MG PO SCH (17:00)
[2017-04-06] MEDS: Polyethylene Glycol 3350 Powder 510 GM Bot PO SCH (19:04)
[2017-04-06] MEDS: LEVOTHYROXINE 50 MCG PO SCH (19:04)
[2017-04-07] MEDS: SUMAtriptan 50 MG Tab PO PRN (02:52)
[2017-04-07] MEDS: DIVALPROEX SODIUM 500 MG PO SCH ×3 (07:23→17:34)
[2017-04-07] MEDS: Gabapentin 300 MG Cap PO SCH ×3 (07:23→19:12)
[2017-04-07] MEDS: PAROXETINE 40 MG PO SCH (07:23)
[2017-04-07] MEDS: Magnesium Oxide 400 MG Tab PO SCH ×2 (07:24→17:34)
[2017-04-07] MEDS: QUEtiapine 25 MG Tab PO SCH ×2 (07:24→19:12)
[2017-04-07] MEDS: LORazepam 1 MG Tab PO SCH ×4 (07:25→19:12)
[2017-04-07] MEDS: Acetaminophen 500 MG Tab PO SCH ×3 (07:27→17:35)
[2017-04-07] MEDS: BUPROPION 300 MG PO SCH (17:34)
[2017-04-07] MEDS: LEVOTHYROXINE 50 MCG PO SCH (19:12)
[2017-04-08] MEDS: LORazepam 1 MG Tab PO SCH ×4 (07:00→19:16)
[2017-04-08] MEDS: PAROXETINE 40 MG PO SCH (07:01)
[2017-04-08] MEDS: DIVALPROEX SODIUM 500 MG PO SCH ×3 (07:01→17:10)
[2017-04-08] MEDS: Magnesium Oxide 400 MG Tab PO SCH ×2 (07:01→17:10)
[2017-04-08] MEDS: Gabapentin 300 MG Cap PO SCH ×3 (07:01→19:16)
[2017-04-08] MEDS: Acetaminophen 500 MG Tab PO SCH ×3 (07:02→17:11)
[2017-04-08] MEDS: QUEtiapine 25 MG Tab PO SCH ×2 (07:02→19:16)
[2017-04-08] MEDS: Ibuprofen 200 MG Tab PO PRN ×2 (07:04→16:32)
[2017-04-08] MEDS: SUMAtriptan 50 MG Tab PO PRN ×2 (07:05→12:17)
[2017-04-08] MEDS: BUPROPION 300 MG PO SCH (17:10)
[2017-04-08] MEDS: LEVOTHYROXINE 50 MCG PO SCH (19:15)
[2017-04-09] MEDS: LORazepam 1 MG Tab PO SCH ×3 (07:02→19:20)
[2017-04-09] MEDS: QUEtiapine 25 MG Tab PO SCH ×2 (07:03→19:18)
[2017-04-09] MEDS: Gabapentin 300 MG Cap PO SCH ×3 (07:03→19:18)
[2017-04-09] MEDS: PAROXETINE 40 MG PO SCH (07:03)
[2017-04-09] MEDS: DIVALPROEX SODIUM 500 MG PO SCH ×3 (07:03→17:20)
[2017-04-09] MEDS: Magnesium Oxide 400 MG Tab PO SCH ×2 (07:04→17:20)
[2017-04-09] MEDS: Acetaminophen 500 MG Tab PO SCH ×3 (07:06→17:22)
[2017-04-09] MEDS: SUMAtriptan 50 MG Tab PO PRN (07:07)
[2017-04-09] MEDS: BUPROPION 300 MG PO SCH (17:20)
[2017-04-09] MEDS: LEVOTHYROXINE 50 MCG PO SCH (19:19)
[2017-04-09] MEDS: Polyethylene Glycol 3350 Powder 510 GM Bot PO SCH (19:21)
[2017-04-10] MEDS: Ibuprofen 200 MG Tab PO PRN ×2 (00:17→22:18)
[2017-04-10] MEDS: LORazepam 1 MG Tab PO SCH ×4 (07:24→19:07)
[2017-04-10] MEDS: Magnesium Oxide 400 MG Tab PO SCH ×2 (07:25→17:02)
[2017-04-10] MEDS: DIVALPROEX SODIUM 500 MG PO SCH ×3 (07:25→17:03)
[2017-04-10] MEDS: PAROXETINE 40 MG PO SCH (07:25)
[2017-04-10] MEDS: Gabapentin 300 MG Cap PO SCH ×3 (07:25→19:09)
[2017-04-10] MEDS: QUEtiapine 25 MG Tab PO SCH ×2 (07:26→19:08)
[2017-04-10] MEDS: Acetaminophen 500 MG Tab PO SCH ×3 (07:26→17:03)
[2017-04-10] MEDS: Nicotine 21 MG/24 Hr Patch TRDERM SCH (16:31)
[2017-04-10] MEDS: BUPROPION 300 MG PO SCH (17:02)
[2017-04-10] MEDS: LEVOTHYROXINE 50 MCG PO SCH (19:09)
[2017-04-10] MEDS: Amitriptyline 25 MG Tab PO SCH (19:09)
[2017-04-11] MEDS: SUMAtriptan 50 MG Tab PO PRN (01:40)
[2017-04-11] MEDS: LORazepam 1 MG Tab PO SCH ×4 (07:03→19:42)
[2017-04-11] MEDS: Nicotine 21 MG/24 Hr Patch TRDERM SCH (07:05)
[2017-04-11] MEDS: Magnesium Oxide 400 MG Tab PO SCH ×2 (07:06→16:59)
[2017-04-11] MEDS: Gabapentin 300 MG Cap PO SCH ×3 (07:07→19:40)
[2017-04-11] MEDS: PAROXETINE 40 MG PO SCH (07:07)
[2017-04-11] MEDS: DIVALPROEX SODIUM 500 MG PO SCH ×3 (07:07→16:59)
[2017-04-11] MEDS: Acetaminophen 500 MG Tab PO SCH ×3 (07:08→17:00)
[2017-04-11] MEDS: QUEtiapine 25 MG Tab PO SCH ×2 (07:08→19:41)
--- NOTE | 2017-04-11 16:27 | PCM.SN ---
- Free Text/Narrative Note: Extensive consultation with the patient in her room with Stormy Jon RN, also in the room today concerning the patient's current medications, current care, etc. Patient has had problems with recurrent migraine headaches during my vacation with pharmacy contacted me frequently during the last 10 days concerning medication adjustments. Secondary to her recurrent headaches and insomnia the patient was restarted on a lower dose of amitriptyline, although the patient continues to demand most on a daily basis reinitiation of her hydrocodone. She continues to be noncompliant with ambulation with assist only and actually has been going outside smoking on her own and also did leave this facility to visit her mother at [facility] today without having assistance as required by her facility care contract. She did have 2 minor falls without significant injury this afternoon with the patient once again warned that sedating medications will be withdrawn, if she remains noncompliant with her activity restrictions. Patient continues to be extremely noncompliant with her facility care contract, however we are trying to be understanding secondary to the recent loss of her significant other. Emotional support was once again provided with the patient still refusing intrafacility psychiatric care, transfer to [facility] for further psychiatric counseling/substance abuse problems, etc. The patient is very confrontational today and is considering transferring her care to Rosie Painter MD at [facility] in [place] or to another intermediate. Extensive support was given to the patient today, including having our care coordinators assist her with changing providers and/ or intermediate facilities, however she wants to do this on her own.
[2017-04-11] MEDS: BUPROPION 300 MG PO SCH (17:00)
[2017-04-11] MEDS: LEVOTHYROXINE 50 MCG PO SCH (19:40)
[2017-04-11] MEDS: Amitriptyline 25 MG Tab PO SCH (19:40)
[2017-04-11] MEDS: Polyethylene Glycol 3350 Powder 510 GM Bot PO SCH (19:44)
[2017-04-12] MEDS: LORazepam 1 MG Tab PO SCH ×4 (07:07→19:23)
[2017-04-12] MEDS: Nicotine 21 MG/24 Hr Patch TRDERM SCH (07:08)
[2017-04-12] MEDS: Magnesium Oxide 400 MG Tab PO SCH ×2 (07:11→18:30)
[2017-04-12] MEDS: Gabapentin 300 MG Cap PO SCH ×3 (07:11→19:25)
[2017-04-12] MEDS: PAROXETINE 40 MG PO SCH (07:12)
[2017-04-12] MEDS: QUEtiapine 25 MG Tab PO SCH ×2 (07:12→19:25)
[2017-04-12] MEDS: DIVALPROEX SODIUM 500 MG PO SCH ×3 (07:12→18:30)
[2017-04-12] MEDS: Acetaminophen 500 MG Tab PO SCH ×3 (07:13→18:31)
[2017-04-12] MEDS: BUPROPION 300 MG PO SCH (18:30)
[2017-04-12] MEDS: Amitriptyline 25 MG Tab PO SCH (19:25)
[2017-04-12] MEDS: LEVOTHYROXINE 50 MCG PO SCH (19:26)
[2017-04-13] MEDS: LORazepam 1 MG Tab PO SCH ×4 (07:31→19:35)
[2017-04-13] MEDS: Magnesium Oxide 400 MG Tab PO SCH ×2 (07:32→17:00)
[2017-04-13] MEDS: PAROXETINE 40 MG PO SCH (07:32)
[2017-04-13] MEDS: Gabapentin 300 MG Cap PO SCH ×3 (07:32→19:37)
[2017-04-13] MEDS: DIVALPROEX SODIUM 500 MG PO SCH ×3 (07:32→17:00)
[2017-04-13] MEDS: Acetaminophen 500 MG Tab PO SCH ×3 (07:33→17:01)
[2017-04-13] MEDS: QUEtiapine 25 MG Tab PO SCH ×2 (07:33→19:37)
[2017-04-13] MEDS: Nicotine 21 MG/24 Hr Patch TRDERM SCH (07:34)
[2017-04-13] MEDS: Ibuprofen 200 MG Tab PO PRN (10:31)
--- NOTE | 2017-04-13 13:31 | PCM.SN ---
- Free Text/Narrative Note: Repeat personal consultation with the patient in her room today per her request. She is once again requesting for resumption of her narcotic medications with request of hydrocodone on a 3 times a day basis. It was once again explained to her that she is already on multiple sedating medications with history recurrent falls as per previous notes. In addition, note history of previous narcotic abuse/addiction, recent use of illicit drugs, alcohol abuse , etc. with resumption of additional further narcotic medications strongly contraindicated in this patient. Nursing staff was notified to contact physical therapy to coordinate administration of her when necessary ibuprofen dose about 60-90 minutes prior to each scheduled treatment with the patient already on scheduled Tylenol. The patient is much less confrontational today in comparison to our consultation on 04/11, and she does not wish to change providers or move to another facility at this time. She continues to be fairly confrontational with nursing staff, etc. on a regular basis, including earlier this morning per nurse's history. They will continue to document these episodes of confrontation and/or any episodes of noncompliance with her previously signed care agreement. Emotional support was once again provided.
[2017-04-13] MEDS: BUPROPION 300 MG PO SCH (17:00)
[2017-04-13] MEDS: Amitriptyline 25 MG Tab PO SCH (19:36)
[2017-04-13] MEDS: Polyethylene Glycol 3350 Powder 510 GM Bot PO SCH (19:36)
[2017-04-13] MEDS: LEVOTHYROXINE 50 MCG PO SCH (19:38)
[2017-04-14] MEDS: LORazepam 1 MG Tab PO SCH ×4 (07:09→19:36)
[2017-04-14] MEDS: PAROXETINE 40 MG PO SCH (07:10)
[2017-04-14] MEDS: DIVALPROEX SODIUM 500 MG PO SCH ×3 (07:10→17:18)
[2017-04-14] MEDS: Magnesium Oxide 400 MG Tab PO SCH ×2 (07:10→17:18)
[2017-04-14] MEDS: Gabapentin 300 MG Cap PO SCH ×3 (07:10→19:37)
[2017-04-14] MEDS: Acetaminophen 500 MG Tab PO SCH ×3 (07:11→17:19)
[2017-04-14] MEDS: QUEtiapine 25 MG Tab PO SCH ×2 (07:11→19:37)
[2017-04-14] MEDS: Nicotine 21 MG/24 Hr Patch TRDERM SCH (07:12)
[2017-04-14] MEDS: BUPROPION 300 MG PO SCH (17:18)
[2017-04-14] MEDS: LEVOTHYROXINE 50 MCG PO SCH (19:38)
[2017-04-15] MEDS: LORazepam 1 MG Tab PO SCH ×4 (07:00→19:32)
[2017-04-15] MEDS: Nicotine 21 MG/24 Hr Patch TRDERM SCH (07:01)
[2017-04-15] MEDS: Magnesium Oxide 400 MG Tab PO SCH ×2 (07:02→17:00)
[2017-04-15] MEDS: PAROXETINE 40 MG PO SCH (07:03)
[2017-04-15] MEDS: DIVALPROEX SODIUM 500 MG PO SCH ×3 (07:03→17:00)
[2017-04-15] MEDS: Gabapentin 300 MG Cap PO SCH ×3 (07:03→19:33)
[2017-04-15] MEDS: QUEtiapine 25 MG Tab PO SCH ×2 (07:04→19:33)
[2017-04-15] MEDS: Acetaminophen 500 MG Tab PO SCH ×3 (07:06→17:01)
[2017-04-15] MEDS: BUPROPION 300 MG PO SCH (17:00)
[2017-04-15] MEDS: LEVOTHYROXINE 50 MCG PO SCH (19:34)
[2017-04-16] MEDS: LORazepam 1 MG Tab PO SCH ×4 (07:18→19:17)
[2017-04-16] MEDS: Nicotine 21 MG/24 Hr Patch TRDERM SCH (07:21)
[2017-04-16] MEDS: Gabapentin 300 MG Cap PO SCH ×3 (07:23→19:17)
[2017-04-16] MEDS: Magnesium Oxide 400 MG Tab PO SCH ×2 (07:23→16:59)
[2017-04-16] MEDS: PAROXETINE 40 MG PO SCH (07:24)
[2017-04-16] MEDS: DIVALPROEX SODIUM 500 MG PO SCH ×3 (07:24→17:00)
[2017-04-16] MEDS: QUEtiapine 25 MG Tab PO SCH ×2 (07:25→19:18)
[2017-04-16] MEDS: Acetaminophen 500 MG Tab PO SCH ×3 (07:27→17:00)
[2017-04-16] MEDS: BUPROPION 300 MG PO SCH (17:00)
[2017-04-16] MEDS: LEVOTHYROXINE 50 MCG PO SCH (19:18)
[2017-04-16] MEDS: Polyethylene Glycol 3350 Powder 510 GM Bot PO SCH (19:21)
[2017-04-17] MEDS: Magnesium Oxide 400 MG Tab PO SCH ×2 (07:12→17:30)
[2017-04-17] MEDS: LORazepam 1 MG Tab PO SCH ×4 (07:12→19:09)
[2017-04-17] MEDS: Gabapentin 300 MG Cap PO SCH ×3 (07:14→19:10)
[2017-04-17] MEDS: Nicotine 21 MG/24 Hr Patch TRDERM SCH (07:14)
[2017-04-17] MEDS: PAROXETINE 40 MG PO SCH (07:15)
[2017-04-17] MEDS: QUEtiapine 25 MG Tab PO SCH ×2 (07:15→19:10)
[2017-04-17] MEDS: DIVALPROEX SODIUM 500 MG PO SCH ×3 (07:15→17:31)
[2017-04-17] MEDS: Acetaminophen 500 MG Tab PO SCH ×3 (07:17→17:31)
[2017-04-17] MEDS: Bisacodyl 10 MG Supp RECTAL PRN (15:31)
[2017-04-17] MEDS: BUPROPION 300 MG PO SCH (17:31)
[2017-04-17] MEDS: LEVOTHYROXINE 50 MCG PO SCH (19:10)
[2017-04-18] MEDS: Ibuprofen 200 MG Tab PO PRN (06:52)
[2017-04-18] MEDS: LORazepam 1 MG Tab PO SCH ×4 (06:56→19:43)
[2017-04-18] MEDS: QUEtiapine 25 MG Tab PO SCH ×2 (07:00→19:44)
[2017-04-18] MEDS: DIVALPROEX SODIUM 500 MG PO SCH ×3 (07:00→17:35)
[2017-04-18] MEDS: Gabapentin 300 MG Cap PO SCH ×3 (07:00→19:44)
[2017-04-18] MEDS: PAROXETINE 40 MG PO SCH (07:00)
[2017-04-18] MEDS: Magnesium Oxide 400 MG Tab PO SCH ×2 (07:01→17:35)
[2017-04-18] MEDS: Nicotine 21 MG/24 Hr Patch TRDERM SCH (07:01)
[2017-04-18] MEDS: Acetaminophen 500 MG Tab PO SCH ×3 (07:02→17:36)
[2017-04-18] MEDS: Menthol/Methyl Salicylate 85 GM Tube TOP PRN (10:07)
[2017-04-18] MEDS: BUPROPION 300 MG PO SCH (17:35)
[2017-04-18] MEDS: Polyethylene Glycol 3350 Powder 510 GM Bot PO SCH (19:44)
[2017-04-18] MEDS: LEVOTHYROXINE 50 MCG PO SCH (19:45)
[2017-04-19] MEDS: Ibuprofen 200 MG Tab PO PRN (06:07)
[2017-04-19] MEDS: LORazepam 1 MG Tab PO SCH ×4 (06:59→19:33)
[2017-04-19] MEDS: Citalopram 20 MG Tab**OWN MED PO SCH (07:02)
[2017-04-19] MEDS: Magnesium Oxide 400 MG Tab PO SCH ×2 (07:02→17:13)
[2017-04-19] MEDS: Gabapentin 300 MG Cap PO SCH ×3 (07:02→19:34)
[2017-04-19] MEDS: DIVALPROEX SODIUM 500 MG PO SCH ×3 (07:02→17:14)
[2017-04-19] MEDS: QUEtiapine 25 MG Tab PO SCH ×2 (07:05→19:34)
[2017-04-19] MEDS: Acetaminophen 500 MG Tab PO SCH ×3 (07:06→17:15)
[2017-04-19] MEDS: Nicotine 21 MG/24 Hr Patch TRDERM SCH (07:07)
[2017-04-19] MEDS: Bisacodyl 10 MG Supp RECTAL PRN (15:58)
[2017-04-19] MEDS: BUPROPION 300 MG PO SCH (17:13)
[2017-04-19] MEDS: LEVOTHYROXINE 50 MCG PO SCH (19:34)
[2017-04-20] MEDS: LORazepam 1 MG Tab PO SCH ×4 (06:56→19:24)
[2017-04-20] MEDS: Citalopram 20 MG Tab**OWN MED PO SCH (06:59)
[2017-04-20] MEDS: Magnesium Oxide 400 MG Tab PO SCH ×2 (07:00→16:59)
[2017-04-20] MEDS: Nicotine 21 MG/24 Hr Patch TRDERM SCH (07:00)
[2017-04-20] MEDS: Gabapentin 300 MG Cap PO SCH ×3 (07:00→19:25)
[2017-04-20] MEDS: DIVALPROEX SODIUM 500 MG PO SCH ×3 (07:00→17:01)
[2017-04-20] MEDS: QUEtiapine 25 MG Tab PO SCH ×2 (07:01→19:25)
[2017-04-20] MEDS: Acetaminophen 500 MG Tab PO SCH ×3 (07:02→17:02)
[2017-04-20] MEDS: BUPROPION 300 MG PO SCH (17:01)
[2017-04-20] MEDS: LEVOTHYROXINE 50 MCG PO SCH (19:25)
[2017-04-20] MEDS: Polyethylene Glycol 3350 Powder 510 GM Bot PO SCH (19:25)
[2017-04-21] MEDS: LORazepam 1 MG Tab PO SCH ×4 (06:53→19:43)
[2017-04-21] MEDS: Citalopram 20 MG Tab**OWN MED PO SCH (07:01)
[2017-04-21] MEDS: Nicotine 21 MG/24 Hr Patch TRDERM SCH (07:02)
[2017-04-21] MEDS: Magnesium Oxide 400 MG Tab PO SCH ×2 (07:03→17:35)
[2017-04-21] MEDS: Gabapentin 300 MG Cap PO SCH ×3 (07:03→19:44)
[2017-04-21] MEDS: DIVALPROEX SODIUM 500 MG PO SCH ×3 (07:04→17:35)
[2017-04-21] MEDS: QUEtiapine 25 MG Tab PO SCH ×2 (07:04→19:44)
[2017-04-21] MEDS: Acetaminophen 500 MG Tab PO SCH ×3 (07:05→17:36)
[2017-04-21] MEDS: Bisacodyl 10 MG Supp RECTAL PRN (10:31)
[2017-04-21] MEDS: BUPROPION 300 MG PO SCH (17:35)
[2017-04-21] MEDS: LEVOTHYROXINE 50 MCG PO SCH (19:44)
[2017-04-22] MEDS: LORazepam 1 MG Tab PO SCH ×4 (07:00→19:34)
[2017-04-22] MEDS: Gabapentin 300 MG Cap PO SCH ×3 (07:01→19:35)
[2017-04-22] MEDS: DIVALPROEX SODIUM 500 MG PO SCH ×3 (07:01→17:02)
[2017-04-22] MEDS: Citalopram 20 MG Tab**OWN MED PO SCH (07:01)
[2017-04-22] MEDS: QUEtiapine 25 MG Tab PO SCH ×2 (07:02→19:35)
[2017-04-22] MEDS: Nicotine 21 MG/24 Hr Patch TRDERM SCH (07:02)
[2017-04-22] MEDS: Magnesium Oxide 400 MG Tab PO SCH ×2 (07:04→17:01)
[2017-04-22] MEDS: Acetaminophen 500 MG Tab PO SCH ×3 (07:05→17:02)
[2017-04-22] MEDS: SUMAtriptan 50 MG Tab PO PRN (11:04)
[2017-04-22] MEDS: BUPROPION 300 MG PO SCH (17:02)
[2017-04-22] MEDS: LEVOTHYROXINE 50 MCG PO SCH (19:35)
[2017-04-23] MEDS: LORazepam 1 MG Tab PO SCH ×4 (07:19→19:18)
[2017-04-23] MEDS: Citalopram 20 MG Tab**OWN MED PO SCH (07:20)
[2017-04-23] MEDS: Nicotine 21 MG/24 Hr Patch TRDERM SCH (07:22)
[2017-04-23] MEDS: DIVALPROEX SODIUM 500 MG PO SCH ×3 (07:24→17:13)
[2017-04-23] MEDS: Magnesium Oxide 400 MG Tab PO SCH ×2 (07:24→17:13)
[2017-04-23] MEDS: Gabapentin 300 MG Cap PO SCH ×3 (07:24→19:18)
[2017-04-23] MEDS: QUEtiapine 25 MG Tab PO SCH ×2 (07:25→19:19)
[2017-04-23] MEDS: Acetaminophen 500 MG Tab PO SCH ×3 (07:25→17:14)
[2017-04-23] MEDS: Ibuprofen 200 MG Tab PO PRN (16:03)
[2017-04-23] MEDS: BUPROPION 300 MG PO SCH (17:13)
[2017-04-23] MEDS: Polyethylene Glycol 3350 Powder 510 GM Bot PO SCH (19:18)
[2017-04-23] MEDS: LEVOTHYROXINE 50 MCG PO SCH (19:19)
[2017-04-24] MEDS: LORazepam 1 MG Tab PO SCH ×4 (06:58→19:25)
[2017-04-24] MEDS: Citalopram 20 MG Tab**OWN MED PO SCH (06:59)
[2017-04-24] MEDS: Nicotine 21 MG/24 Hr Patch TRDERM SCH (07:01)
[2017-04-24] MEDS: DIVALPROEX SODIUM 500 MG PO SCH ×3 (07:02→17:12)
[2017-04-24] MEDS: Gabapentin 300 MG Cap PO SCH ×3 (07:02→19:26)
[2017-04-24] MEDS: Magnesium Oxide 400 MG Tab PO SCH ×2 (07:02→17:11)
[2017-04-24] MEDS: Acetaminophen 500 MG Tab PO SCH ×3 (07:03→17:12)
[2017-04-24] MEDS: QUEtiapine 25 MG Tab PO SCH ×2 (07:03→19:26)
[2017-04-24] MEDS: BUPROPION 300 MG PO SCH (17:12)
[2017-04-24] MEDS: LEVOTHYROXINE 50 MCG PO SCH (19:27)
[2017-04-25] MEDS: LORazepam 1 MG Tab PO SCH ×4 (06:57→19:16)
[2017-04-25] MEDS: Magnesium Oxide 400 MG Tab PO SCH ×2 (06:59→17:03)
[2017-04-25] MEDS: Nicotine 21 MG/24 Hr Patch TRDERM SCH (06:59)
[2017-04-25] MEDS: Gabapentin 300 MG Cap PO SCH ×3 (07:00→19:17)
[2017-04-25] MEDS: DIVALPROEX SODIUM 500 MG PO SCH ×3 (07:01→17:04)
[2017-04-25] MEDS: QUEtiapine 25 MG Tab PO SCH ×2 (07:01→19:17)
[2017-04-25] MEDS: Acetaminophen 500 MG Tab PO SCH ×3 (07:02→17:05)
[2017-04-25] MEDS: Citalopram 20 MG Tab**OWN MED PO SCH (08:24)
[2017-04-25] MEDS: LIDOCAINE 4% TOP SCH (13:01)
[2017-04-25] MEDS: Bisacodyl 10 MG Supp RECTAL PRN (14:28)
[2017-04-25] MEDS: BUPROPION 300 MG PO SCH (17:04)
[2017-04-25] MEDS: LEVOTHYROXINE 50 MCG PO SCH (19:17)
[2017-04-25] MEDS: Polyethylene Glycol 3350 Powder 510 GM Bot PO SCH (19:19)
[2017-04-25] MEDS: LIDOCAINE PATCH REMOVAL TRDERM SCH (19:20)
[2017-04-26] MEDS: LORazepam 1 MG Tab PO SCH ×4 (06:55→19:13)
[2017-04-26] MEDS: Citalopram 20 MG Tab**OWN MED PO SCH (06:59)
[2017-04-26] MEDS: Nicotine 21 MG/24 Hr Patch TRDERM SCH (06:59)
[2017-04-26] MEDS: Magnesium Oxide 400 MG Tab PO SCH ×2 (07:00→17:15)
[2017-04-26] MEDS: DIVALPROEX SODIUM 500 MG PO SCH ×3 (07:00→17:16)
[2017-04-26] MEDS: Gabapentin 300 MG Cap PO SCH ×3 (07:00→19:15)
[2017-04-26] MEDS: LIDOCAINE 4% TOP SCH (07:00)
[2017-04-26] MEDS: QUEtiapine 25 MG Tab PO SCH ×2 (07:02→19:14)
[2017-04-26] MEDS: Acetaminophen 500 MG Tab PO SCH ×3 (07:03→17:17)
[2017-04-26] MEDS: BUPROPION 300 MG PO SCH (17:16)
[2017-04-26] MEDS: LEVOTHYROXINE 50 MCG PO SCH (19:15)
[2017-04-26] MEDS: LIDOCAINE PATCH REMOVAL TRDERM SCH (19:15)
[2017-04-27] MEDS: LORazepam 1 MG Tab PO SCH ×4 (07:00→19:21)
[2017-04-27] MEDS: Citalopram 20 MG Tab**OWN MED PO SCH (07:01)
[2017-04-27] MEDS: Nicotine 21 MG/24 Hr Patch TRDERM SCH (07:02)
[2017-04-27] MEDS: Gabapentin 300 MG Cap PO SCH ×3 (07:03→19:21)
[2017-04-27] MEDS: Magnesium Oxide 400 MG Tab PO SCH ×2 (07:03→17:00)
[2017-04-27] MEDS: DIVALPROEX SODIUM 500 MG PO SCH ×3 (07:04→17:00)
[2017-04-27] MEDS: LIDOCAINE 4% TOP SCH (07:04)
[2017-04-27] MEDS: QUEtiapine 25 MG Tab PO SCH ×2 (07:07→19:20)
[2017-04-27] MEDS: Acetaminophen 500 MG Tab PO SCH ×3 (07:08→17:01)
[2017-04-27] MEDS: Bisacodyl 10 MG Supp RECTAL PRN (08:25)
[2017-04-27] MEDS: Magnesium Hydroxide 400 MG/5 ML Susp 30 ML Cup PO PRN (13:23)
[2017-04-27] MEDS: BUPROPION 300 MG PO SCH (17:00)
[2017-04-27] MEDS: Polyethylene Glycol 3350 Powder 510 GM Bot PO SCH (19:20)
[2017-04-27] MEDS: LEVOTHYROXINE 50 MCG PO SCH (19:20)
[2017-04-27] MEDS: LIDOCAINE PATCH REMOVAL TRDERM SCH ×2 (19:22→19:23)
[2017-04-28] MEDS ORDERED: Magnesium Citrate Solution 296 ML Bottle PO PRN (06:30)
[2017-04-28] MEDS: LORazepam 1 MG Tab PO SCH ×4 (07:06→19:05)
[2017-04-28] MEDS: Citalopram 20 MG Tab**OWN MED PO SCH (07:07)
[2017-04-28] MEDS: Magnesium Oxide 400 MG Tab PO SCH ×2 (07:11→17:11)
[2017-04-28] MEDS: Gabapentin 300 MG Cap PO SCH ×3 (07:11→19:04)
[2017-04-28] MEDS: DIVALPROEX SODIUM 500 MG PO SCH ×3 (07:11→17:11)
[2017-04-28] MEDS: LIDOCAINE 4% TOP SCH (07:12)
[2017-04-28] MEDS: QUEtiapine 25 MG Tab PO SCH ×2 (07:13→19:04)
[2017-04-28] MEDS: Acetaminophen 500 MG Tab PO SCH ×3 (07:14→17:12)
[2017-04-28] MEDS: Nicotine 21 MG/24 Hr Patch TRDERM SCH (07:15)
[2017-04-28] MEDS: BUPROPION 300 MG PO SCH (17:11)
[2017-04-28] MEDS: LEVOTHYROXINE 50 MCG PO SCH (19:04)
[2017-04-28] MEDS: LIDOCAINE PATCH REMOVAL TRDERM SCH (19:05)
[2017-04-29] MEDS: Citalopram 20 MG Tab**OWN MED PO SCH (07:14)
[2017-04-29] MEDS: LORazepam 1 MG Tab PO SCH ×4 (07:14→19:31)
[2017-04-29] MEDS: Gabapentin 300 MG Cap PO SCH ×3 (07:14→19:31)
[2017-04-29] MEDS: QUEtiapine 25 MG Tab PO SCH ×2 (07:15→19:30)
[2017-04-29] MEDS: DIVALPROEX SODIUM 500 MG PO SCH ×3 (07:15→17:30)
[2017-04-29] MEDS: Nicotine 21 MG/24 Hr Patch TRDERM SCH (07:15)
[2017-04-29] MEDS: LIDOCAINE 4% TOP SCH (07:18)
[2017-04-29] MEDS: Magnesium Oxide 400 MG Tab PO SCH ×2 (07:18→17:29)
[2017-04-29] MEDS: Acetaminophen 500 MG Tab PO SCH ×3 (07:20→17:30)
[2017-04-29] MEDS: BUPROPION 300 MG PO SCH (17:30)
[2017-04-29] MEDS: LEVOTHYROXINE 50 MCG PO SCH (19:30)
[2017-04-29] MEDS: LIDOCAINE PATCH REMOVAL TRDERM SCH (19:32)
[2017-04-30] MEDS: LORazepam 1 MG Tab PO SCH ×4 (07:02→19:16)
[2017-04-30] MEDS: Nicotine 21 MG/24 Hr Patch TRDERM SCH (07:03)
[2017-04-30] MEDS: Citalopram 20 MG Tab**OWN MED PO SCH (07:03)
[2017-04-30] MEDS: Magnesium Oxide 400 MG Tab PO SCH ×2 (07:04→17:06)
[2017-04-30] MEDS: DIVALPROEX SODIUM 500 MG PO SCH ×3 (07:05→17:07)
[2017-04-30] MEDS: LIDOCAINE 4% TOP SCH (07:05)
[2017-04-30] MEDS: Gabapentin 300 MG Cap PO SCH ×3 (07:05→19:15)
[2017-04-30] MEDS: QUEtiapine 25 MG Tab PO SCH ×2 (07:07→19:15)
[2017-04-30] MEDS: Acetaminophen 500 MG Tab PO SCH ×3 (07:08→17:07)
[2017-04-30] MEDS: Bisacodyl 10 MG Supp RECTAL PRN (13:43)
[2017-04-30] MEDS: BUPROPION 300 MG PO SCH (17:07)
[2017-04-30] MEDS: LEVOTHYROXINE 50 MCG PO SCH (19:15)
[2017-04-30] MEDS: Polyethylene Glycol 3350 Powder 510 GM Bot PO SCH (19:18)
[2017-04-30] MEDS: LIDOCAINE PATCH REMOVAL TRDERM SCH (19:19)
[2017-05-01] MEDS: Citalopram 20 MG Tab**OWN MED PO SCH (06:59)
[2017-05-01] MEDS: QUEtiapine 25 MG Tab PO SCH ×2 (07:00→20:03)
[2017-05-01] MEDS: Gabapentin 300 MG Cap PO SCH ×3 (07:00→20:04)
[2017-05-01] MEDS: DIVALPROEX SODIUM 500 MG PO SCH ×3 (07:00→17:00)
[2017-05-01] MEDS: Nicotine 21 MG/24 Hr Patch TRDERM SCH (07:02)
[2017-05-01] MEDS: Magnesium Oxide 400 MG Tab PO SCH ×2 (07:04→17:00)
[2017-05-01] MEDS: LIDOCAINE 4% TOP SCH (07:06)
[2017-05-01] MEDS: LORazepam 1 MG Tab PO SCH ×4 (07:09→20:01)
[2017-05-01] MEDS: Acetaminophen 500 MG Tab PO SCH ×3 (07:10→17:00)
[2017-05-01] MEDS ORDERED: methylPREDNISolone Acetate 80 MG/ML SDV IM ONE (11:37)
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
[2017-05-01] MEDS: BUPROPION 300 MG PO SCH (17:00)
[2017-05-01] MEDS: LIDOCAINE PATCH REMOVAL TRDERM SCH (20:05)
[2017-05-02] MEDS: LORazepam 1 MG Tab PO SCH ×4 (07:05→19:33)
[2017-05-02] MEDS: Polyethylene Glycol 3350 Powder 510 GM Bot PO SCH (07:07)
[2017-05-02] MEDS: Magnesium Oxide 400 MG Tab PO SCH ×2 (07:07→17:17)
[2017-05-02] MEDS: Citalopram 20 MG Tab**OWN MED PO SCH (07:07)
[2017-05-02] MEDS: DIVALPROEX SODIUM 500 MG PO SCH ×3 (07:08→17:18)
[2017-05-02] MEDS: Gabapentin 300 MG Cap PO SCH ×3 (07:08→19:34)
[2017-05-02] MEDS: QUEtiapine 25 MG Tab PO SCH ×2 (07:09→19:34)
[2017-05-02] MEDS: Acetaminophen 500 MG Tab PO SCH ×3 (07:09→17:19)
[2017-05-02] MEDS: Nicotine 21 MG/24 Hr Patch TRDERM SCH (07:12)
[2017-05-02] MEDS: Ibuprofen 200 MG Tab PO PRN (16:28)
[2017-05-02] MEDS: BUPROPION 300 MG PO SCH (17:18)
[2017-05-02] MEDS: Levothyroxine 75 MCG Tab PO SCH (19:34)
[2017-05-02] MEDS: LIDOCAINE PATCH REMOVAL TRDERM SCH (19:42)
[2017-05-03] MEDS: LORazepam 1 MG Tab PO SCH ×4 (07:15→19:58)
[2017-05-03] MEDS: Citalopram 20 MG Tab**OWN MED PO SCH (07:16)
[2017-05-03] MEDS: QUEtiapine 25 MG Tab PO SCH ×2 (07:17→20:00)
[2017-05-03] MEDS: DIVALPROEX SODIUM 500 MG PO SCH ×3 (07:17→17:01)
[2017-05-03] MEDS: Gabapentin 300 MG Cap PO SCH ×3 (07:17→20:00)
[2017-05-03] MEDS: Nicotine 21 MG/24 Hr Patch TRDERM SCH (07:18)
[2017-05-03] MEDS: Magnesium Oxide 400 MG Tab PO SCH ×2 (07:20→17:01)
[2017-05-03] MEDS: Polyethylene Glycol 3350 Powder 510 GM Bot PO SCH (07:20)
[2017-05-03] MEDS: LIDOCAINE 4% TOP SCH (07:22)
[2017-05-03] MEDS: Acetaminophen 500 MG Tab PO SCH ×3 (07:24→17:02)
[2017-05-03] MEDS: Aluminum Hydroxide/Magnesium Hydroxide/Simethicone Susp 30 ML Cup PO PRN (12:00)
[2017-05-03] MEDS: Bisacodyl 10 MG Supp RECTAL PRN (13:39)
[2017-05-03] MEDS: BUPROPION 300 MG PO SCH (17:00)
[2017-05-03] MEDS: Levothyroxine 75 MCG Tab PO SCH (20:00)
[2017-05-03] MEDS: LIDOCAINE PATCH REMOVAL TRDERM SCH (20:01)
[2017-05-04] MEDS: Ibuprofen 200 MG Tab PO PRN (04:37)
[2017-05-04] MEDS: LORazepam 1 MG Tab PO SCH ×4 (06:58→19:12)
[2017-05-04] MEDS: Citalopram 20 MG Tab**OWN MED PO SCH (07:00)
[2017-05-04] MEDS: Polyethylene Glycol 3350 Powder 510 GM Bot PO SCH (07:01)
[2017-05-04] MEDS: Magnesium Oxide 400 MG Tab PO SCH ×2 (07:01→17:05)
[2017-05-04] MEDS: Nicotine 21 MG/24 Hr Patch TRDERM SCH (07:01)
[2017-05-04] MEDS: Gabapentin 300 MG Cap PO SCH ×3 (07:02→19:13)
[2017-05-04] MEDS: LIDOCAINE 4% TOP SCH (07:02)
[2017-05-04] MEDS: DIVALPROEX SODIUM 500 MG PO SCH ×3 (07:02→17:06)
[2017-05-04] MEDS: Acetaminophen 500 MG Tab PO SCH ×3 (07:06→17:07)
[2017-05-04] MEDS: QUEtiapine 25 MG Tab PO SCH ×2 (07:06→19:13)
[2017-05-04] MEDS: Bisacodyl 10 MG Supp RECTAL PRN (13:56)
[2017-05-04] MEDS: BUPROPION 300 MG PO SCH (17:06)
[2017-05-04] MEDS: Levothyroxine 75 MCG Tab PO SCH (19:13)
[2017-05-04] MEDS: LIDOCAINE PATCH REMOVAL TRDERM SCH (19:16)
[2017-05-05] MEDS: Ibuprofen 200 MG Tab PO PRN ×2 (05:42→14:14)
[2017-05-05] MEDS: Citalopram 20 MG Tab**OWN MED PO SCH (07:02)
[2017-05-05] MEDS: DIVALPROEX SODIUM 500 MG PO SCH ×3 (07:03→18:08)
[2017-05-05] MEDS: QUEtiapine 25 MG Tab PO SCH ×2 (07:03→19:26)
[2017-05-05] MEDS: Gabapentin 300 MG Cap PO SCH ×3 (07:03→19:26)
[2017-05-05] MEDS: Magnesium Oxide 400 MG Tab PO SCH ×2 (07:04→18:10)
[2017-05-05] MEDS: Polyethylene Glycol 3350 Powder 510 GM Bot PO SCH (07:04)
[2017-05-05] MEDS: LORazepam 1 MG Tab PO SCH ×4 (07:05→19:24)
[2017-05-05] MEDS: LIDOCAINE 4% TOP SCH (07:08)
[2017-05-05] MEDS: Nicotine 21 MG/24 Hr Patch TRDERM SCH (07:09)
[2017-05-05] MEDS: Acetaminophen 500 MG Tab PO SCH ×3 (07:13→18:10)
[2017-05-05] MEDS: Bisacodyl 10 MG Supp RECTAL PRN (15:41)
[2017-05-05] MEDS: BUPROPION 300 MG PO SCH (18:08)
[2017-05-05] MEDS: Levothyroxine 75 MCG Tab PO SCH (19:25)
[2017-05-05] MEDS: LIDOCAINE PATCH REMOVAL TRDERM SCH (19:29)
[2017-05-06] MEDS: SUMAtriptan 50 MG Tab PO PRN (05:52)
[2017-05-06] MEDS: Aluminum Hydroxide/Magnesium Hydroxide/Simethicone Susp 30 ML Cup PO PRN (06:58)
[2017-05-06] MEDS: LORazepam 1 MG Tab PO SCH ×4 (07:04→19:39)
[2017-05-06] MEDS: Nicotine 21 MG/24 Hr Patch TRDERM SCH (07:06)
[2017-05-06] MEDS: Citalopram 20 MG Tab**OWN MED PO SCH (07:06)
[2017-05-06] MEDS: Magnesium Oxide 400 MG Tab PO SCH ×2 (07:07→17:01)
[2017-05-06] MEDS: Polyethylene Glycol 3350 Powder 510 GM Bot PO SCH (07:07)
[2017-05-06] MEDS: Gabapentin 300 MG Cap PO SCH ×3 (07:07→19:40)
[2017-05-06] MEDS: DIVALPROEX SODIUM 500 MG PO SCH ×3 (07:08→17:01)
[2017-05-06] MEDS: LIDOCAINE 4% TOP SCH (07:08)
[2017-05-06] MEDS: QUEtiapine 25 MG Tab PO SCH ×2 (07:09→19:41)
[2017-05-06] MEDS: Acetaminophen 500 MG Tab PO SCH ×3 (07:09→17:02)
[2017-05-06] MEDS: BUPROPION 300 MG PO SCH (17:01)
[2017-05-06] MEDS: Levothyroxine 75 MCG Tab PO SCH (19:40)
[2017-05-06] MEDS: LIDOCAINE PATCH REMOVAL TRDERM SCH (19:49)
[2017-05-07] MEDS: LORazepam 1 MG Tab PO SCH ×4 (07:10→19:30)
[2017-05-07] MEDS: Nicotine 21 MG/24 Hr Patch TRDERM SCH (07:11)
[2017-05-07] MEDS: Citalopram 20 MG Tab**OWN MED PO SCH (07:11)
[2017-05-07] MEDS: Gabapentin 300 MG Cap PO SCH ×3 (07:13→19:31)
[2017-05-07] MEDS: DIVALPROEX SODIUM 500 MG PO SCH ×3 (07:13→17:00)
[2017-05-07] MEDS: Polyethylene Glycol 3350 Powder 510 GM Bot PO SCH (07:13)
[2017-05-07] MEDS: Magnesium Oxide 400 MG Tab PO SCH ×2 (07:13→16:59)
[2017-05-07] MEDS: LIDOCAINE 4% TOP SCH (07:14)
[2017-05-07] MEDS: QUEtiapine 25 MG Tab PO SCH ×2 (07:14→19:31)
[2017-05-07] MEDS: Acetaminophen 500 MG Tab PO SCH ×3 (07:15→17:00)
[2017-05-07] MEDS: Ibuprofen 200 MG Tab PO PRN ×2 (07:16→20:11)
[2017-05-07] MEDS: Bisacodyl 10 MG Supp RECTAL PRN (15:26)
[2017-05-07] MEDS: BUPROPION 300 MG PO SCH (16:59)
[2017-05-07] MEDS: Levothyroxine 75 MCG Tab PO SCH (19:31)
[2017-05-07] MEDS: LIDOCAINE PATCH REMOVAL TRDERM SCH (19:31)
[2017-05-07] MEDS: Menthol/Methyl Salicylate 85 GM Tube TOP PRN (20:12)
[2017-05-08] MEDS: Ibuprofen 200 MG Tab PO PRN ×3 (02:15→16:59)
[2017-05-08] MEDS: LORazepam 1 MG Tab PO SCH ×4 (07:11→19:25)
[2017-05-08] MEDS: Nicotine 21 MG/24 Hr Patch TRDERM SCH (07:13)
[2017-05-08] MEDS: Citalopram 20 MG Tab**OWN MED PO SCH (07:13)
[2017-05-08] MEDS: Magnesium Oxide 400 MG Tab PO SCH ×2 (07:14→17:00)
[2017-05-08] MEDS: Gabapentin 300 MG Cap PO SCH ×3 (07:14→19:26)
[2017-05-08] MEDS: Polyethylene Glycol 3350 Powder 510 GM Bot PO SCH (07:14)
[2017-05-08] MEDS: LIDOCAINE 4% TOP SCH (07:15)
[2017-05-08] MEDS: DIVALPROEX SODIUM 500 MG PO SCH ×3 (07:15→17:00)
[2017-05-08] MEDS: Acetaminophen 500 MG Tab PO SCH ×3 (07:18→17:01)
[2017-05-08] MEDS: QUEtiapine 25 MG Tab PO SCH ×2 (07:18→19:26)
[2017-05-08] MEDS: Menthol/Methyl Salicylate 85 GM Tube TOP PRN ×3 (11:02→22:46)
[2017-05-08] MEDS: Bisacodyl 10 MG Supp RECTAL PRN (15:38)
[2017-05-08] MEDS: BUPROPION 300 MG PO SCH (17:00)
[2017-05-08] MEDS: Levothyroxine 75 MCG Tab PO SCH (19:26)
[2017-05-08] MEDS: LIDOCAINE PATCH REMOVAL TRDERM SCH (22:46)
[2017-05-09] MEDS: Ibuprofen 200 MG Tab PO PRN ×3 (04:05→19:26)
[2017-05-09] MEDS: LORazepam 1 MG Tab PO SCH ×4 (07:01→19:24)
[2017-05-09] MEDS: Nicotine 21 MG/24 Hr Patch TRDERM SCH (07:03)
[2017-05-09] MEDS: Magnesium Oxide 400 MG Tab PO SCH ×2 (07:05→16:59)
[2017-05-09] MEDS: Citalopram 20 MG Tab**OWN MED PO SCH (07:05)
[2017-05-09] MEDS: LIDOCAINE 4% TOP SCH (07:05)
[2017-05-09] MEDS: DIVALPROEX SODIUM 500 MG PO SCH ×3 (07:06→16:59)
[2017-05-09] MEDS: Gabapentin 300 MG Cap PO SCH ×3 (07:06→19:25)
[2017-05-09] MEDS: Polyethylene Glycol 3350 Powder 510 GM Bot PO SCH (07:06)
[2017-05-09] MEDS: Acetaminophen 500 MG Tab PO SCH ×3 (07:07→17:00)
[2017-05-09] MEDS: QUEtiapine 25 MG Tab PO SCH ×2 (07:07→19:25)
[2017-05-09] MEDS: Menthol/Methyl Salicylate 85 GM Tube TOP PRN (11:08)
[2017-05-09] MEDS: Aluminum Hydroxide/Magnesium Hydroxide/Simethicone Susp 30 ML Cup PO PRN (13:51)
[2017-05-09] MEDS: Bisacodyl 10 MG Supp RECTAL PRN (15:30)
[2017-05-09] MEDS: BUPROPION 300 MG PO SCH (16:59)
[2017-05-09] MEDS: LIDOCAINE PATCH REMOVAL TRDERM SCH (19:25)
[2017-05-09] MEDS: Levothyroxine 75 MCG Tab PO SCH (19:25)
[2017-05-10] MEDS: LORazepam 1 MG Tab PO SCH ×4 (07:11→19:15)
[2017-05-10] MEDS: Citalopram 20 MG Tab**OWN MED PO SCH (07:12)
[2017-05-10] MEDS: LIDOCAINE 4% TOP SCH (07:12)
[2017-05-10] MEDS: Nicotine 21 MG/24 Hr Patch TRDERM SCH (07:13)
[2017-05-10] MEDS: Magnesium Oxide 400 MG Tab PO SCH ×2 (07:14→17:06)
[2017-05-10] MEDS: Polyethylene Glycol 3350 Powder 510 GM Bot PO SCH (07:14)
[2017-05-10] MEDS: DIVALPROEX SODIUM 500 MG PO SCH ×3 (07:15→17:06)
[2017-05-10] MEDS: Gabapentin 300 MG Cap PO SCH ×3 (07:15→19:15)
[2017-05-10] MEDS: QUEtiapine 25 MG Tab PO SCH ×2 (07:16→19:15)
[2017-05-10] MEDS: Acetaminophen 500 MG Tab PO SCH ×3 (07:16→17:07)
[2017-05-10] MEDS: Ibuprofen 200 MG Tab PO PRN (13:34)
[2017-05-10] MEDS: Bisacodyl 10 MG Supp RECTAL PRN (13:36)
[2017-05-10] MEDS: Menthol/Methyl Salicylate 85 GM Tube TOP PRN ×2 (13:40→17:12)
[2017-05-10] MEDS: BUPROPION 300 MG PO SCH (17:06)
[2017-05-10] MEDS: Levothyroxine 75 MCG Tab PO SCH (19:15)
[2017-05-10] MEDS: LIDOCAINE PATCH REMOVAL TRDERM SCH (19:16)
[2017-05-11] MEDS: Ibuprofen 200 MG Tab PO PRN ×2 (06:16→13:46)
[2017-05-11] MEDS: Menthol/Methyl Salicylate 85 GM Tube TOP PRN ×3 (06:17→17:30)
[2017-05-11] MEDS: LORazepam 1 MG Tab PO SCH ×4 (06:59→19:15)
[2017-05-11] MEDS: Citalopram 20 MG Tab**OWN MED PO SCH (07:00)
[2017-05-11] MEDS: Nicotine 21 MG/24 Hr Patch TRDERM SCH (07:01)
[2017-05-11] MEDS: LIDOCAINE 4% TOP SCH (07:01)
[2017-05-11] MEDS: Polyethylene Glycol 3350 Powder 510 GM Bot PO SCH (07:02)
[2017-05-11] MEDS: Magnesium Oxide 400 MG Tab PO SCH ×2 (07:02→17:27)
[2017-05-11] MEDS: Gabapentin 300 MG Cap PO SCH ×3 (07:03→19:17)
[2017-05-11] MEDS: DIVALPROEX SODIUM 500 MG PO SCH ×3 (07:03→17:27)
[2017-05-11] MEDS: Acetaminophen 500 MG Tab PO SCH ×3 (07:04→17:28)
[2017-05-11] MEDS: QUEtiapine 25 MG Tab PO SCH ×2 (07:04→19:17)
[2017-05-11] MEDS: Bisacodyl 10 MG Supp RECTAL PRN (13:45)
[2017-05-11] MEDS: BUPROPION 300 MG PO SCH (17:27)
[2017-05-11] MEDS: Levothyroxine 75 MCG Tab PO SCH (19:17)
[2017-05-11] MEDS: LIDOCAINE PATCH REMOVAL TRDERM SCH (19:26)
[2017-05-12] MEDS: Menthol/Methyl Salicylate 85 GM Tube TOP PRN ×2 (02:04→19:15)
[2017-05-12] MEDS: Ibuprofen 200 MG Tab PO PRN (05:38)
[2017-05-12] MEDS: LORazepam 1 MG Tab PO SCH ×4 (07:18→19:11)
[2017-05-12] MEDS: Citalopram 20 MG Tab**OWN MED PO SCH (07:19)
[2017-05-12] MEDS: Nicotine 21 MG/24 Hr Patch TRDERM SCH (07:20)
[2017-05-12] MEDS: Magnesium Oxide 400 MG Tab PO SCH ×2 (07:22→17:29)
[2017-05-12] MEDS: Polyethylene Glycol 3350 Powder 510 GM Bot PO SCH (07:23)
[2017-05-12] MEDS: DIVALPROEX SODIUM 500 MG PO SCH ×3 (07:24→17:30)
[2017-05-12] MEDS: Gabapentin 300 MG Cap PO SCH ×3 (07:24→19:12)
[2017-05-12] MEDS: LIDOCAINE 4% TOP SCH (07:25)
[2017-05-12] MEDS: QUEtiapine 25 MG Tab PO SCH ×2 (07:26→19:12)
[2017-05-12] MEDS: Acetaminophen 500 MG Tab PO SCH ×3 (07:28→17:31)
[2017-05-12] MEDS: BUPROPION 300 MG PO SCH (17:30)
[2017-05-12] MEDS: Levothyroxine 75 MCG Tab PO SCH (19:12)
[2017-05-12] MEDS: LIDOCAINE PATCH REMOVAL TRDERM SCH (19:15)
[2017-05-13] MEDS: Ibuprofen 200 MG Tab PO PRN ×2 (05:23→13:55)
[2017-05-13] MEDS: Menthol/Methyl Salicylate 85 GM Tube TOP PRN ×2 (05:25→19:18)
[2017-05-13] MEDS: LORazepam 1 MG Tab PO SCH ×4 (07:14→19:16)
[2017-05-13] MEDS: DIVALPROEX SODIUM 500 MG PO SCH ×3 (07:15→17:15)
[2017-05-13] MEDS: QUEtiapine 25 MG Tab PO SCH ×2 (07:15→19:17)
[2017-05-13] MEDS: Citalopram 20 MG Tab**OWN MED PO SCH (07:15)
[2017-05-13] MEDS: Gabapentin 300 MG Cap PO SCH ×3 (07:15→19:17)
[2017-05-13] MEDS: LIDOCAINE 4% TOP SCH (07:16)
[2017-05-13] MEDS: Nicotine 21 MG/24 Hr Patch TRDERM SCH (07:17)
[2017-05-13] MEDS: Magnesium Oxide 400 MG Tab PO SCH ×2 (07:17→17:15)
[2017-05-13] MEDS: Polyethylene Glycol 3350 Powder 510 GM Bot PO SCH (07:17)
[2017-05-13] MEDS: Acetaminophen 500 MG Tab PO SCH ×3 (07:20→17:15)
[2017-05-13] MEDS: BUPROPION 300 MG PO SCH (17:15)
[2017-05-13] MEDS: Levothyroxine 75 MCG Tab PO SCH (19:17)
[2017-05-13] MEDS: LIDOCAINE PATCH REMOVAL TRDERM SCH (19:24)
[2017-05-14] MEDS: LORazepam 1 MG Tab PO SCH ×4 (07:00→19:07)
[2017-05-14] MEDS: Citalopram 20 MG Tab**OWN MED PO SCH (07:01)
[2017-05-14] MEDS: Magnesium Oxide 400 MG Tab PO SCH ×2 (07:01→17:00)
[2017-05-14] MEDS: Polyethylene Glycol 3350 Powder 510 GM Bot PO SCH (07:02)
[2017-05-14] MEDS: Nicotine 21 MG/24 Hr Patch TRDERM SCH (07:02)
[2017-05-14] MEDS: LIDOCAINE 4% TOP SCH (07:03)
[2017-05-14] MEDS: Gabapentin 300 MG Cap PO SCH ×3 (07:03→19:09)
[2017-05-14] MEDS: DIVALPROEX SODIUM 500 MG PO SCH ×3 (07:03→17:00)
[2017-05-14] MEDS: QUEtiapine 25 MG Tab PO SCH ×2 (07:05→19:09)
[2017-05-14] MEDS: Acetaminophen 500 MG Tab PO SCH ×3 (07:05→17:01)
[2017-05-14] MEDS ORDERED: Ondansetron 4 MG Tab.DIS PO PRN (14:00)
[2017-05-14] MEDS: Bisacodyl 10 MG Supp RECTAL PRN (16:06)
[2017-05-14] MEDS: Menthol/Methyl Salicylate 85 GM Tube TOP PRN (16:48)
[2017-05-14] MEDS: BUPROPION 300 MG PO SCH (17:00)
[2017-05-14] MEDS: Levothyroxine 75 MCG Tab PO SCH (19:09)
[2017-05-14] MEDS: LIDOCAINE PATCH REMOVAL TRDERM SCH (19:13)
[2017-05-15] MEDS: Ibuprofen 200 MG Tab PO PRN (04:32)
[2017-05-15] MEDS: LORazepam 1 MG Tab PO SCH ×4 (13:13→19:40)
[2017-05-15] MEDS: Nicotine 21 MG/24 Hr Patch TRDERM SCH (13:14)
[2017-05-15] MEDS: Citalopram 20 MG Tab**OWN MED PO SCH (13:14)
[2017-05-15] MEDS: Polyethylene Glycol 3350 Powder 510 GM Bot PO SCH (13:15)
[2017-05-15] MEDS: Magnesium Oxide 400 MG Tab PO SCH ×2 (13:15→17:16)
[2017-05-15] MEDS: Gabapentin 300 MG Cap PO SCH ×2 (13:15→19:42)
[2017-05-15] MEDS: DIVALPROEX SODIUM 500 MG PO SCH ×2 (13:15→17:16)
[2017-05-15] MEDS: LIDOCAINE 4% TOP SCH (13:16)
[2017-05-15] MEDS: QUEtiapine 25 MG Tab PO SCH ×2 (13:17→19:42)
[2017-05-15] MEDS: Acetaminophen 500 MG Tab PO SCH ×2 (13:18→17:16)
[2017-05-15] MEDS: Bisacodyl 10 MG Supp RECTAL PRN (16:06)
[2017-05-15] MEDS: BUPROPION 300 MG PO SCH (17:16)
[2017-05-15] MEDS: LIDOCAINE PATCH REMOVAL TRDERM SCH (19:42)
[2017-05-15] MEDS: Levothyroxine 75 MCG Tab PO SCH (19:42)
[2017-05-16] MEDS: SUMAtriptan 50 MG Tab PO PRN (05:35)
[2017-05-16] MEDS: Ibuprofen 200 MG Tab PO PRN ×2 (05:36→15:00)
[2017-05-16] MEDS: LORazepam 1 MG Tab PO SCH ×4 (07:06→19:59)
[2017-05-16] MEDS: Citalopram 20 MG Tab**OWN MED PO SCH (07:07)
[2017-05-16] MEDS: Nicotine 21 MG/24 Hr Patch TRDERM SCH (07:08)
[2017-05-16] MEDS: Magnesium Oxide 400 MG Tab PO SCH ×2 (07:08→17:00)
[2017-05-16] MEDS: Gabapentin 300 MG Cap PO SCH ×3 (07:09→20:00)
[2017-05-16] MEDS: Polyethylene Glycol 3350 Powder 510 GM Bot PO SCH (07:09)
[2017-05-16] MEDS: DIVALPROEX SODIUM 500 MG PO SCH ×3 (07:10→17:00)
[2017-05-16] MEDS: LIDOCAINE 4% TOP SCH (07:10)
[2017-05-16] MEDS: Acetaminophen 500 MG Tab PO SCH ×3 (07:11→17:01)
[2017-05-16] MEDS: QUEtiapine 25 MG Tab PO SCH ×2 (07:11→20:00)
[2017-05-16] MEDS: Bisacodyl 10 MG Supp RECTAL PRN (13:37)
[2017-05-16] MEDS: BUPROPION 300 MG PO SCH (17:00)
[2017-05-16] MEDS: Levothyroxine 75 MCG Tab PO SCH (20:00)
[2017-05-16] MEDS: LIDOCAINE PATCH REMOVAL TRDERM SCH (20:01)
[2017-05-17] MEDS: LORazepam 1 MG Tab PO SCH ×4 (07:03→18:59)
[2017-05-17] MEDS: Citalopram 20 MG Tab**OWN MED PO SCH (07:04)
[2017-05-17] MEDS: Nicotine 21 MG/24 Hr Patch TRDERM SCH (07:05)
[2017-05-17] MEDS: LIDOCAINE 4% TOP SCH (07:05)
[2017-05-17] MEDS: Magnesium Oxide 400 MG Tab PO SCH ×2 (07:06→17:01)
[2017-05-17] MEDS: DIVALPROEX SODIUM 500 MG PO SCH ×3 (07:07→17:02)
[2017-05-17] MEDS: Polyethylene Glycol 3350 Powder 510 GM Bot PO SCH (07:07)
[2017-05-17] MEDS: Gabapentin 300 MG Cap PO SCH ×3 (07:07→19:00)
[2017-05-17] MEDS: Acetaminophen 500 MG Tab PO SCH ×3 (07:08→17:02)
[2017-05-17] MEDS: QUEtiapine 25 MG Tab PO SCH ×2 (07:08→19:00)
[2017-05-17] MEDS: BUPROPION 300 MG PO SCH (17:02)
[2017-05-17] MEDS: Ibuprofen 200 MG Tab PO PRN (18:48)
[2017-05-17] MEDS: Levothyroxine 75 MCG Tab PO SCH (19:00)
[2017-05-17] MEDS: LIDOCAINE PATCH REMOVAL TRDERM SCH (19:08)
[2017-05-17] MEDS: Menthol/Methyl Salicylate 85 GM Tube TOP PRN (21:34)
[2017-05-18] MEDS: SUMAtriptan 50 MG Tab PO PRN (03:23)
[2017-05-18] MEDS: Ibuprofen 200 MG Tab PO PRN (03:25)
[2017-05-18] MEDS: Bisacodyl 10 MG Supp RECTAL PRN (06:02)
[2017-05-18] MEDS: LORazepam 1 MG Tab PO SCH ×4 (07:10→19:35)
[2017-05-18] MEDS: Citalopram 20 MG Tab**OWN MED PO SCH (07:11)
[2017-05-18] MEDS: Magnesium Oxide 400 MG Tab PO SCH ×2 (07:12→17:11)
[2017-05-18] MEDS: Nicotine 21 MG/24 Hr Patch TRDERM SCH (07:12)
[2017-05-18] MEDS: Gabapentin 300 MG Cap PO SCH ×3 (07:13→19:34)
[2017-05-18] MEDS: LIDOCAINE 4% TOP SCH (07:13)
[2017-05-18] MEDS: Polyethylene Glycol 3350 Powder 510 GM Bot PO SCH (07:13)
[2017-05-18] MEDS: DIVALPROEX SODIUM 500 MG PO SCH ×3 (07:13→17:11)
[2017-05-18] MEDS: Acetaminophen 500 MG Tab PO SCH ×3 (07:15→17:12)
[2017-05-18] MEDS: QUEtiapine 25 MG Tab PO SCH ×2 (07:15→19:35)
[2017-05-18] MEDS: BUPROPION 300 MG PO SCH (17:11)
[2017-05-18] MEDS: Menthol/Methyl Salicylate 85 GM Tube TOP PRN (18:00)
[2017-05-18] MEDS: Levothyroxine 75 MCG Tab PO SCH (19:34)
[2017-05-18] MEDS: LIDOCAINE PATCH REMOVAL TRDERM SCH (19:36)
[2017-05-19] MEDS: Menthol/Methyl Salicylate 85 GM Tube TOP PRN ×2 (04:11→15:23)
[2017-05-19] MEDS: Ibuprofen 200 MG Tab PO PRN ×2 (05:55→16:01)
[2017-05-19] MEDS: Bisacodyl 10 MG Supp RECTAL PRN (07:02)
[2017-05-19] MEDS: Citalopram 20 MG Tab**OWN MED PO SCH (07:04)
[2017-05-19] MEDS: LORazepam 1 MG Tab PO SCH ×4 (07:04→19:13)
[2017-05-19] MEDS: Nicotine 21 MG/24 Hr Patch TRDERM SCH (07:05)
[2017-05-19] MEDS: Magnesium Oxide 400 MG Tab PO SCH ×2 (07:06→17:01)
[2017-05-19] MEDS: DIVALPROEX SODIUM 500 MG PO SCH ×3 (07:07→17:02)
[2017-05-19] MEDS: Gabapentin 300 MG Cap PO SCH ×3 (07:07→19:12)
[2017-05-19] MEDS: LIDOCAINE 4% TOP SCH (07:07)
[2017-05-19] MEDS: Polyethylene Glycol 3350 Powder 510 GM Bot PO SCH (07:07)
[2017-05-19] MEDS: QUEtiapine 25 MG Tab PO SCH ×2 (07:08→19:12)
[2017-05-19] MEDS: Acetaminophen 500 MG Tab PO SCH ×3 (07:08→17:02)
[2017-05-19] MEDS: Aluminum Hydroxide/Magnesium Hydroxide/Simethicone Susp 30 ML Cup PO PRN (16:03)
[2017-05-19] MEDS: BUPROPION 300 MG PO SCH (17:01)
[2017-05-19] MEDS: Levothyroxine 75 MCG Tab PO SCH (19:12)
[2017-05-19] MEDS: LIDOCAINE PATCH REMOVAL TRDERM SCH (19:16)
[2017-05-20] MEDS: LORazepam 1 MG Tab PO SCH ×4 (07:04→19:21)
[2017-05-20] MEDS: Nicotine 21 MG/24 Hr Patch TRDERM SCH (07:05)
[2017-05-20] MEDS: LIDOCAINE 4% TOP SCH (07:06)
[2017-05-20] MEDS: Citalopram 20 MG Tab**OWN MED PO SCH (07:09)
[2017-05-20] MEDS: Magnesium Oxide 400 MG Tab PO SCH ×2 (07:09→17:05)
[2017-05-20] MEDS: Polyethylene Glycol 3350 Powder 510 GM Bot PO SCH (07:09)
[2017-05-20] MEDS: DIVALPROEX SODIUM 500 MG PO SCH ×3 (07:10→17:05)
[2017-05-20] MEDS: QUEtiapine 25 MG Tab PO SCH ×2 (07:10→19:23)
[2017-05-20] MEDS: Gabapentin 300 MG Cap PO SCH ×3 (07:10→19:23)
[2017-05-20] MEDS: Ibuprofen 200 MG Tab PO PRN (07:11)
[2017-05-20] MEDS: Acetaminophen 500 MG Tab PO SCH ×3 (07:11→17:06)
[2017-05-20] MEDS: Aluminum Hydroxide/Magnesium Hydroxide/Simethicone Susp 30 ML Cup PO PRN (07:13)
[2017-05-20] MEDS: BUPROPION 300 MG PO SCH (17:05)
[2017-05-20] MEDS: Levothyroxine 75 MCG Tab PO SCH (19:22)
[2017-05-20] MEDS: Menthol/Methyl Salicylate 85 GM Tube TOP PRN (19:25)
[2017-05-20] MEDS: LIDOCAINE PATCH REMOVAL TRDERM SCH (19:26)
[2017-05-21] MEDS: Ibuprofen 200 MG Tab PO PRN (06:13)
[2017-05-21] MEDS: LORazepam 1 MG Tab PO SCH ×4 (07:00→20:06)
[2017-05-21] MEDS: Citalopram 20 MG Tab**OWN MED PO SCH (07:01)
[2017-05-21] MEDS: Nicotine 21 MG/24 Hr Patch TRDERM SCH (07:03)
[2017-05-21] MEDS: Magnesium Oxide 400 MG Tab PO SCH ×2 (07:04→17:29)
[2017-05-21] MEDS: Polyethylene Glycol 3350 Powder 510 GM Bot PO SCH (07:04)
[2017-05-21] MEDS: Gabapentin 300 MG Cap PO SCH ×3 (07:05→20:07)
[2017-05-21] MEDS: LIDOCAINE 4% TOP SCH (07:05)
[2017-05-21] MEDS: DIVALPROEX SODIUM 500 MG PO SCH ×3 (07:05→18:03)
[2017-05-21] MEDS: QUEtiapine 25 MG Tab PO SCH ×2 (07:06→20:08)
[2017-05-21] MEDS: Acetaminophen 500 MG Tab PO SCH ×3 (07:06→18:03)
[2017-05-21] MEDS: BUPROPION 300 MG PO SCH (17:29)
[2017-05-21] MEDS: Levothyroxine 75 MCG Tab PO SCH (20:06)
[2017-05-21] MEDS: LIDOCAINE PATCH REMOVAL TRDERM SCH (20:10)
[2017-05-22] MEDS: Citalopram 20 MG Tab**OWN MED PO SCH (07:04)
[2017-05-22] MEDS: LORazepam 1 MG Tab PO SCH ×4 (07:04→19:34)
[2017-05-22] MEDS: Nicotine 21 MG/24 Hr Patch TRDERM SCH (07:05)
[2017-05-22] MEDS: Magnesium Oxide 400 MG Tab PO SCH ×2 (07:07→16:59)
[2017-05-22] MEDS: LIDOCAINE 4% TOP SCH (07:07)
[2017-05-22] MEDS: Gabapentin 300 MG Cap PO SCH ×3 (07:08→19:33)
[2017-05-22] MEDS: DIVALPROEX SODIUM 500 MG PO SCH ×3 (07:08→17:00)
[2017-05-22] MEDS: Polyethylene Glycol 3350 Powder 510 GM Bot PO SCH (07:08)
[2017-05-22] MEDS: QUEtiapine 25 MG Tab PO SCH ×2 (07:09→19:33)
[2017-05-22] MEDS: Acetaminophen 500 MG Tab PO SCH ×3 (07:09→17:00)
[2017-05-22] MEDS: Bisacodyl 10 MG Supp RECTAL PRN (07:11)
[2017-05-22] MEDS: BUPROPION 300 MG PO SCH (16:59)
[2017-05-22] MEDS: Levothyroxine 75 MCG Tab PO SCH (19:33)
[2017-05-22] MEDS: LIDOCAINE PATCH REMOVAL TRDERM SCH (19:35)
[2017-05-23] MEDS: Menthol/Methyl Salicylate 85 GM Tube TOP PRN (05:01)
[2017-05-23] MEDS: Ibuprofen 200 MG Tab PO PRN ×2 (05:19→15:18)
[2017-05-23] MEDS: LORazepam 1 MG Tab PO SCH ×4 (07:43→19:31)
[2017-05-23] MEDS: Citalopram 20 MG Tab**OWN MED PO SCH (07:44)
[2017-05-23] MEDS: Nicotine 21 MG/24 Hr Patch TRDERM SCH (07:45)
[2017-05-23] MEDS: Polyethylene Glycol 3350 Powder 510 GM Bot PO SCH (07:46)
[2017-05-23] MEDS: Magnesium Oxide 400 MG Tab PO SCH ×2 (07:46→17:19)
[2017-05-23] MEDS: DIVALPROEX SODIUM 500 MG PO SCH ×3 (07:47→17:19)
[2017-05-23] MEDS: Gabapentin 300 MG Cap PO SCH ×3 (07:47→19:30)
[2017-05-23] MEDS: LIDOCAINE 4% TOP SCH (07:48)
[2017-05-23] MEDS: QUEtiapine 25 MG Tab PO SCH ×2 (07:49→19:31)
[2017-05-23] MEDS: Acetaminophen 500 MG Tab PO SCH ×3 (07:50→17:20)
[2017-05-23] MEDS ORDERED: methylPREDNISolone Acetate 80 MG/ML SDV IM ONE (12:00)
[2017-05-23] MEDS: BUPROPION 300 MG PO SCH (17:19)
[2017-05-23] MEDS: Levothyroxine 75 MCG Tab PO SCH (19:30)
[2017-05-23] MEDS: LIDOCAINE PATCH REMOVAL TRDERM SCH (19:34)
[2017-05-24] MEDS: Ibuprofen 200 MG Tab PO PRN ×2 (02:14→13:43)
[2017-05-24] MEDS: Bisacodyl 10 MG Supp RECTAL PRN (03:52)
[2017-05-24] MEDS: LORazepam 1 MG Tab PO SCH ×4 (07:14→19:20)
[2017-05-24] MEDS: Citalopram 20 MG Tab**OWN MED PO SCH (07:15)
[2017-05-24] MEDS: Nicotine 21 MG/24 Hr Patch TRDERM SCH (07:16)
[2017-05-24] MEDS: Magnesium Oxide 400 MG Tab PO SCH ×2 (07:17→17:17)
[2017-05-24] MEDS: Polyethylene Glycol 3350 Powder 510 GM Bot PO SCH (07:18)
[2017-05-24] MEDS: Gabapentin 300 MG Cap PO SCH ×3 (07:18→19:19)
[2017-05-24] MEDS: DIVALPROEX SODIUM 500 MG PO SCH ×3 (07:18→17:18)
[2017-05-24] MEDS: LIDOCAINE 4% TOP SCH (07:19)
[2017-05-24] MEDS: QUEtiapine 25 MG Tab PO SCH ×2 (07:20→19:19)
[2017-05-24] MEDS: Acetaminophen 500 MG Tab PO SCH ×3 (07:20→17:19)
[2017-05-24] MEDS: BUPROPION 300 MG PO SCH (17:18)
[2017-05-24] MEDS: Levothyroxine 75 MCG Tab PO SCH (19:19)
[2017-05-24] MEDS: LIDOCAINE PATCH REMOVAL TRDERM SCH (19:20)
[2017-05-25] MEDS: Citalopram 20 MG Tab**OWN MED PO SCH (07:18)
[2017-05-25] MEDS: DIVALPROEX SODIUM 500 MG PO SCH ×3 (07:18→19:58)
[2017-05-25] MEDS: Gabapentin 300 MG Cap PO SCH ×3 (07:18→20:01)
[2017-05-25] MEDS: QUEtiapine 25 MG Tab PO SCH ×2 (07:18→20:02)
[2017-05-25] MEDS: LORazepam 1 MG Tab PO SCH ×4 (07:19→20:00)
[2017-05-25] MEDS: Polyethylene Glycol 3350 Powder 510 GM Bot PO SCH (07:21)
[2017-05-25] MEDS: Magnesium Oxide 400 MG Tab PO SCH ×2 (07:21→19:54)
[2017-05-25] MEDS: Acetaminophen 500 MG Tab PO SCH ×3 (07:24→20:00)
[2017-05-25] MEDS: LIDOCAINE 4% TOP SCH (07:25)
[2017-05-25] MEDS: Nicotine 21 MG/24 Hr Patch TRDERM SCH (07:27)
[2017-05-25] MEDS: Bisacodyl 10 MG Supp RECTAL PRN (14:49)
[2017-05-25] MEDS: BUPROPION 300 MG PO SCH (19:58)
[2017-05-25] MEDS: Levothyroxine 75 MCG Tab PO SCH (20:01)
[2017-05-25] MEDS: LIDOCAINE PATCH REMOVAL TRDERM SCH (20:05)
[2017-05-26] MEDS: Ibuprofen 200 MG Tab PO PRN (06:42)
[2017-05-26] MEDS: LORazepam 1 MG Tab PO SCH ×4 (07:00→19:14)
[2017-05-26] MEDS: LIDOCAINE 4% TOP SCH (07:01)
[2017-05-26] MEDS: Citalopram 20 MG Tab**OWN MED PO SCH (07:01)
[2017-05-26] MEDS: Magnesium Oxide 400 MG Tab PO SCH ×2 (07:04→17:08)
[2017-05-26] MEDS: Polyethylene Glycol 3350 Powder 510 GM Bot PO SCH (07:04)
[2017-05-26] MEDS: Gabapentin 300 MG Cap PO SCH ×3 (07:05→19:15)
[2017-05-26] MEDS: DIVALPROEX SODIUM 500 MG PO SCH ×3 (07:05→17:08)
[2017-05-26] MEDS: QUEtiapine 25 MG Tab PO SCH ×2 (07:05→19:15)
[2017-05-26] MEDS: Acetaminophen 500 MG Tab PO SCH ×3 (07:06→17:09)
[2017-05-26] MEDS: Nicotine 21 MG/24 Hr Patch TRDERM SCH (07:11)
[2017-05-26] MEDS: BUPROPION 300 MG PO SCH (17:08)
[2017-05-26] MEDS: Levothyroxine 75 MCG Tab PO SCH (19:15)
[2017-05-26] MEDS: LIDOCAINE PATCH REMOVAL TRDERM SCH (19:20)
[2017-05-27] MEDS: LORazepam 1 MG Tab PO SCH ×4 (06:54→19:18)
[2017-05-27] MEDS: Gabapentin 300 MG Cap PO SCH ×3 (07:01→19:18)
[2017-05-27] MEDS: Citalopram 20 MG Tab**OWN MED PO SCH (07:01)
[2017-05-27] MEDS: QUEtiapine 25 MG Tab PO SCH ×2 (07:01→19:18)
[2017-05-27] MEDS: DIVALPROEX SODIUM 500 MG PO SCH ×3 (07:01→17:42)
[2017-05-27] MEDS: Nicotine 21 MG/24 Hr Patch TRDERM SCH (07:03)
[2017-05-27] MEDS: LIDOCAINE 4% TOP SCH (07:03)
[2017-05-27] MEDS: Polyethylene Glycol 3350 Powder 510 GM Bot PO SCH (07:07)
[2017-05-27] MEDS: Magnesium Oxide 400 MG Tab PO SCH ×2 (07:07→17:41)
[2017-05-27] MEDS: Acetaminophen 500 MG Tab PO SCH ×3 (07:11→17:42)
[2017-05-27] MEDS: Bisacodyl 10 MG Supp RECTAL PRN (14:05)
[2017-05-27] MEDS: BUPROPION 300 MG PO SCH (17:42)
[2017-05-27] MEDS: Levothyroxine 75 MCG Tab PO SCH (19:18)
[2017-05-27] MEDS: LIDOCAINE PATCH REMOVAL TRDERM SCH (19:19)
[2017-05-28] MEDS: Ibuprofen 200 MG Tab PO PRN ×3 (05:03→17:43)
[2017-05-28] MEDS: Menthol/Methyl Salicylate 85 GM Tube TOP PRN ×2 (07:07→17:37)
[2017-05-28] MEDS: LORazepam 1 MG Tab PO SCH ×4 (07:14→19:32)
[2017-05-28] MEDS: Citalopram 20 MG Tab**OWN MED PO SCH (07:16)
[2017-05-28] MEDS: Acetaminophen 500 MG Tab PO SCH ×3 (07:16→17:36)
[2017-05-28] MEDS: QUEtiapine 25 MG Tab PO SCH ×2 (07:17→19:32)
[2017-05-28] MEDS: Nicotine 21 MG/24 Hr Patch TRDERM SCH (07:17)
[2017-05-28] MEDS: DIVALPROEX SODIUM 500 MG PO SCH ×3 (07:18→17:35)
[2017-05-28] MEDS: Gabapentin 300 MG Cap PO SCH ×3 (07:20→19:32)
[2017-05-28] MEDS: Magnesium Oxide 400 MG Tab PO SCH ×2 (07:20→17:34)
[2017-05-28] MEDS: Polyethylene Glycol 3350 Powder 510 GM Bot PO SCH (07:20)
[2017-05-28] MEDS: LIDOCAINE 4% TOP SCH (07:22)
[2017-05-28] MEDS: Bisacodyl 10 MG Supp RECTAL PRN (16:05)
[2017-05-28] MEDS: BUPROPION 300 MG PO SCH (17:35)
[2017-05-28] MEDS: Levothyroxine 75 MCG Tab PO SCH (19:32)
[2017-05-28] MEDS: LIDOCAINE PATCH REMOVAL TRDERM SCH (19:33)
[2017-05-29] MEDS: Ibuprofen 200 MG Tab PO PRN (01:22)
[2017-05-29] MEDS: Menthol/Methyl Salicylate 85 GM Tube TOP PRN ×2 (01:27→08:43)
[2017-05-29] MEDS: LORazepam 1 MG Tab PO SCH ×4 (07:05→19:12)
[2017-05-29] MEDS: Citalopram 20 MG Tab**OWN MED PO SCH (07:06)
[2017-05-29] MEDS: Nicotine 21 MG/24 Hr Patch TRDERM SCH (07:07)
[2017-05-29] MEDS: DIVALPROEX SODIUM 500 MG PO SCH ×3 (07:08→17:11)
[2017-05-29] MEDS: Gabapentin 300 MG Cap PO SCH ×3 (07:09→19:13)
[2017-05-29] MEDS: QUEtiapine 25 MG Tab PO SCH ×2 (07:09→19:13)
[2017-05-29] MEDS: Magnesium Oxide 400 MG Tab PO SCH ×2 (07:10→17:10)
[2017-05-29] MEDS: Polyethylene Glycol 3350 Powder 510 GM Bot PO SCH (07:11)
[2017-05-29] MEDS: LIDOCAINE 4% TOP SCH (07:12)
[2017-05-29] MEDS: Acetaminophen 500 MG Tab PO SCH ×3 (07:16→17:13)
[2017-05-29 07:45] LABS: CHLORIDE,CL 101 mmol/L (98-107); SODIUM,NA 137 mmol/L (136-145)
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
[2017-05-29] MEDS: BUPROPION 300 MG PO SCH (17:11)
[2017-05-29] MEDS: Levothyroxine 75 MCG Tab PO SCH (19:13)
[2017-05-29] MEDS: LIDOCAINE PATCH REMOVAL TRDERM SCH (19:14)
[2017-05-30] MEDS: Ibuprofen 200 MG Tab PO PRN ×2 (05:26→15:35)
[2017-05-30] MEDS: LORazepam 1 MG Tab PO SCH ×4 (07:01→19:14)
[2017-05-30] MEDS: Hydroxychloroquine 200 MG Tab PO SCH (07:05)
[2017-05-30] MEDS: Citalopram 20 MG Tab**OWN MED PO SCH (07:06)
[2017-05-30] MEDS: DIVALPROEX SODIUM 500 MG PO SCH ×3 (07:06→17:15)
[2017-05-30] MEDS: Gabapentin 300 MG Cap PO SCH ×3 (07:07→19:13)
[2017-05-30] MEDS: QUEtiapine 25 MG Tab PO SCH ×2 (07:07→19:13)
[2017-05-30] MEDS: Nicotine 21 MG/24 Hr Patch TRDERM SCH (07:09)
[2017-05-30] MEDS: Magnesium Oxide 400 MG Tab PO SCH ×2 (07:09→17:15)
[2017-05-30] MEDS: Polyethylene Glycol 3350 Powder 510 GM Bot PO SCH (07:10)
[2017-05-30] MEDS: LIDOCAINE 4% TOP SCH (07:12)
[2017-05-30] MEDS: Acetaminophen 500 MG Tab PO SCH ×3 (07:14→17:17)
[2017-05-30] MEDS: Bisacodyl 10 MG Supp RECTAL PRN (15:35)
[2017-05-30] MEDS: BUPROPION 300 MG PO SCH (17:15)
[2017-05-30] MEDS: Levothyroxine 75 MCG Tab PO SCH (19:13)
[2017-05-30] MEDS: LIDOCAINE PATCH REMOVAL TRDERM SCH (19:15)
[2017-05-31] MEDS: Ibuprofen 200 MG Tab PO PRN ×2 (03:53→17:21)
[2017-05-31] MEDS: LORazepam 1 MG Tab PO SCH ×4 (07:15→19:26)
[2017-05-31] MEDS: Citalopram 20 MG Tab**OWN MED PO SCH (07:16)
[2017-05-31] MEDS: Nicotine 21 MG/24 Hr Patch TRDERM SCH (07:17)
[2017-05-31] MEDS: Polyethylene Glycol 3350 Powder 510 GM Bot PO SCH (07:20)
[2017-05-31] MEDS: Magnesium Oxide 400 MG Tab PO SCH ×2 (07:20→17:20)
[2017-05-31] MEDS: Gabapentin 300 MG Cap PO SCH ×3 (07:21→19:28)
[2017-05-31] MEDS: DIVALPROEX SODIUM 500 MG PO SCH ×3 (07:21→17:17)
[2017-05-31] MEDS: Hydroxychloroquine 200 MG Tab PO SCH (07:22)
[2017-05-31] MEDS: LIDOCAINE 4% TOP SCH (07:23)
[2017-05-31] MEDS: QUEtiapine 25 MG Tab PO SCH ×2 (07:25→19:27)
[2017-05-31] MEDS: Acetaminophen 500 MG Tab PO SCH ×3 (07:31→17:19)
[2017-05-31] MEDS: Bisacodyl 10 MG Supp RECTAL PRN (15:35)
[2017-05-31] MEDS: BUPROPION 300 MG PO SCH (17:17)
[2017-05-31] MEDS: Levothyroxine 75 MCG Tab PO SCH (19:27)
[2017-05-31] MEDS: LIDOCAINE PATCH REMOVAL TRDERM SCH (19:29)
[2017-06-01] MEDS: Ibuprofen 200 MG Tab PO PRN ×2 (03:54→10:03)
[2017-06-01] MEDS: LORazepam 1 MG Tab PO SCH ×4 (06:59→19:25)
[2017-06-01] MEDS: Citalopram 20 MG Tab**OWN MED PO SCH (06:59)
[2017-06-01] MEDS: Nicotine 21 MG/24 Hr Patch TRDERM SCH (07:00)
[2017-06-01] MEDS: LIDOCAINE 4% TOP SCH (07:00)
[2017-06-01] MEDS: Magnesium Oxide 400 MG Tab PO SCH ×2 (07:02→17:02)
[2017-06-01] MEDS: Polyethylene Glycol 3350 Powder 510 GM Bot PO SCH (07:02)
[2017-06-01] MEDS: Hydroxychloroquine 200 MG Tab PO SCH (07:03)
[2017-06-01] MEDS: Gabapentin 300 MG Cap PO SCH ×3 (07:03→19:26)
[2017-06-01] MEDS: DIVALPROEX SODIUM 500 MG PO SCH ×3 (07:03→17:03)
[2017-06-01] MEDS: Acetaminophen 500 MG Tab PO SCH ×3 (07:04→17:03)
[2017-06-01] MEDS: QUEtiapine 25 MG Tab PO SCH ×2 (07:04→19:26)
[2017-06-01] MEDS: BUPROPION 300 MG PO SCH (17:03)
[2017-06-01] MEDS: Levothyroxine 75 MCG Tab PO SCH (19:26)
[2017-06-01] MEDS: LIDOCAINE PATCH REMOVAL TRDERM SCH (19:29)
[2017-06-02] MEDS: Ibuprofen 200 MG Tab PO PRN ×2 (02:53→14:00)
[2017-06-02] MEDS: LORazepam 1 MG Tab PO SCH ×4 (07:37→19:23)
[2017-06-02] MEDS: Citalopram 20 MG Tab**OWN MED PO SCH (07:39)
[2017-06-02] MEDS: Nicotine 21 MG/24 Hr Patch TRDERM SCH (07:40)
[2017-06-02] MEDS: Polyethylene Glycol 3350 Powder 510 GM Bot PO SCH (07:41)
[2017-06-02] MEDS: Magnesium Oxide 400 MG Tab PO SCH ×2 (07:41→17:28)
[2017-06-02] MEDS: DIVALPROEX SODIUM 500 MG PO SCH ×3 (07:42→17:28)
[2017-06-02] MEDS: Hydroxychloroquine 200 MG Tab PO SCH (07:42)
[2017-06-02] MEDS: Gabapentin 300 MG Cap PO SCH ×3 (07:42→19:24)
[2017-06-02] MEDS: LIDOCAINE 4% TOP SCH (07:43)
[2017-06-02] MEDS: QUEtiapine 25 MG Tab PO SCH ×2 (07:44→19:24)
[2017-06-02] MEDS: Acetaminophen 500 MG Tab PO SCH ×3 (07:45→17:29)
[2017-06-02] MEDS: Magnesium Hydroxide 400 MG/5 ML Susp 30 ML Cup PO PRN (14:32)
[2017-06-02] MEDS: Bisacodyl 10 MG Supp RECTAL PRN (14:50)
[2017-06-02] MEDS: BUPROPION 300 MG PO SCH (17:28)
[2017-06-02] MEDS: Levothyroxine 75 MCG Tab PO SCH (19:24)
[2017-06-02] MEDS: LIDOCAINE PATCH REMOVAL TRDERM SCH (19:31)
[2017-06-03] MEDS: Ibuprofen 200 MG Tab PO PRN ×2 (05:26→19:08)
[2017-06-03] MEDS: LORazepam 1 MG Tab PO SCH ×4 (07:51→19:05)
[2017-06-03] MEDS: Acetaminophen 500 MG Tab PO SCH ×3 (07:52→17:01)
[2017-06-03] MEDS: Citalopram 20 MG Tab**OWN MED PO SCH (07:54)
[2017-06-03] MEDS: Nicotine 21 MG/24 Hr Patch TRDERM SCH (07:54)
[2017-06-03] MEDS: Magnesium Oxide 400 MG Tab PO SCH ×2 (07:54→17:01)
[2017-06-03] MEDS: Polyethylene Glycol 3350 Powder 510 GM Bot PO SCH (07:55)
[2017-06-03] MEDS: Gabapentin 300 MG Cap PO SCH ×3 (07:56→19:07)
[2017-06-03] MEDS: DIVALPROEX SODIUM 500 MG PO SCH ×3 (07:56→17:00)
[2017-06-03] MEDS: QUEtiapine 25 MG Tab PO SCH ×2 (07:57→19:07)
[2017-06-03] MEDS: Hydroxychloroquine 200 MG Tab PO SCH (07:57)
[2017-06-03] MEDS: LIDOCAINE 4% TOP SCH (07:57)
[2017-06-03] MEDS: BUPROPION 300 MG PO SCH (17:01)
[2017-06-03] MEDS: Levothyroxine 75 MCG Tab PO SCH (19:07)
[2017-06-03] MEDS: LIDOCAINE PATCH REMOVAL TRDERM SCH (20:12)
[2017-06-04] MEDS: LORazepam 1 MG Tab PO SCH ×4 (06:56→19:18)
[2017-06-04] MEDS: Citalopram 20 MG Tab**OWN MED PO SCH (06:59)
[2017-06-04] MEDS: Magnesium Oxide 400 MG Tab PO SCH ×2 (06:59→17:26)
[2017-06-04] MEDS: Hydroxychloroquine 200 MG Tab PO SCH (07:00)
[2017-06-04] MEDS: Gabapentin 300 MG Cap PO SCH ×3 (07:00→19:19)
[2017-06-04] MEDS: Polyethylene Glycol 3350 Powder 510 GM Bot PO SCH (07:00)
[2017-06-04] MEDS: DIVALPROEX SODIUM 500 MG PO SCH ×3 (07:00→17:27)
[2017-06-04] MEDS: Acetaminophen 500 MG Tab PO SCH ×3 (07:01→17:29)
[2017-06-04] MEDS: QUEtiapine 25 MG Tab PO SCH ×2 (07:01→19:19)
[2017-06-04] MEDS: LIDOCAINE 4% TOP SCH (07:02)
[2017-06-04] MEDS: Nicotine 21 MG/24 Hr Patch TRDERM SCH (07:03)
[2017-06-04] MEDS: Bisacodyl 10 MG Supp RECTAL PRN (09:43)
[2017-06-04] MEDS: BUPROPION 300 MG PO SCH (17:27)
[2017-06-04] MEDS: Levothyroxine 75 MCG Tab PO SCH (19:19)
[2017-06-04] MEDS: LIDOCAINE PATCH REMOVAL TRDERM SCH (19:23)
[2017-06-05] MEDS: LORazepam 1 MG Tab PO SCH ×4 (07:19→19:34)
[2017-06-05] MEDS: Citalopram 20 MG Tab**OWN MED PO SCH (07:20)
[2017-06-05] MEDS: LIDOCAINE 4% TOP SCH (07:20)
[2017-06-05] MEDS: Nicotine 21 MG/24 Hr Patch TRDERM SCH (07:21)
[2017-06-05] MEDS: Magnesium Oxide 400 MG Tab PO SCH ×2 (07:22→17:03)
[2017-06-05] MEDS: DIVALPROEX SODIUM 500 MG PO SCH ×3 (07:23→17:04)
[2017-06-05] MEDS: Hydroxychloroquine 200 MG Tab PO SCH (07:23)
[2017-06-05] MEDS: Polyethylene Glycol 3350 Powder 510 GM Bot PO SCH (07:23)
[2017-06-05] MEDS: Gabapentin 300 MG Cap PO SCH ×3 (07:23→19:35)
[2017-06-05] MEDS: QUEtiapine 25 MG Tab PO SCH ×2 (07:24→19:35)
[2017-06-05] MEDS: Acetaminophen 500 MG Tab PO SCH ×3 (07:25→17:04)
[2017-06-05] MEDS: Ibuprofen 200 MG Tab PO PRN (13:36)
[2017-06-05] MEDS: Bisacodyl 10 MG Supp RECTAL PRN (14:59)
[2017-06-05] MEDS: BUPROPION 300 MG PO SCH (17:03)
[2017-06-05] MEDS: Levothyroxine 75 MCG Tab PO SCH (19:35)
[2017-06-05] MEDS: LIDOCAINE PATCH REMOVAL TRDERM SCH (20:23)
[2017-06-06] MEDS: Ibuprofen 200 MG Tab PO PRN ×2 (01:59→10:24)
[2017-06-06] MEDS: LORazepam 1 MG Tab PO SCH ×4 (07:00→19:05)
[2017-06-06] MEDS: Citalopram 20 MG Tab**OWN MED PO SCH (07:01)
[2017-06-06] MEDS: Nicotine 21 MG/24 Hr Patch TRDERM SCH (07:02)
[2017-06-06] MEDS: LIDOCAINE 4% TOP SCH (07:03)
[2017-06-06] MEDS: Magnesium Oxide 400 MG Tab PO SCH ×2 (07:04→17:13)
[2017-06-06] MEDS: Gabapentin 300 MG Cap PO SCH ×3 (07:05→19:06)
[2017-06-06] MEDS: Polyethylene Glycol 3350 Powder 510 GM Bot PO SCH (07:05)
[2017-06-06] MEDS: DIVALPROEX SODIUM 500 MG PO SCH ×3 (07:06→17:14)
[2017-06-06] MEDS: Hydroxychloroquine 200 MG Tab PO SCH (07:06)
[2017-06-06] MEDS: QUEtiapine 25 MG Tab PO SCH ×2 (07:07→19:06)
[2017-06-06] MEDS: Acetaminophen 500 MG Tab PO SCH ×3 (07:09→17:15)
[2017-06-06] MEDS: Menthol/Methyl Salicylate 85 GM Tube TOP PRN ×2 (12:53→19:04)
[2017-06-06] MEDS: Bisacodyl 10 MG Supp RECTAL PRN (15:00)
[2017-06-06] MEDS: BUPROPION 300 MG PO SCH (17:14)
[2017-06-06] MEDS: Levothyroxine 75 MCG Tab PO SCH (19:06)
[2017-06-06] MEDS: LIDOCAINE PATCH REMOVAL TRDERM SCH (19:11)
[2017-06-07] MEDS: Ibuprofen 200 MG Tab PO PRN ×3 (03:30→19:36)
[2017-06-07] MEDS: LORazepam 1 MG Tab PO SCH ×4 (07:00→19:35)
[2017-06-07] MEDS: Citalopram 20 MG Tab**OWN MED PO SCH (07:01)
[2017-06-07] MEDS: Nicotine 21 MG/24 Hr Patch TRDERM SCH (07:01)
[2017-06-07] MEDS: Polyethylene Glycol 3350 Powder 510 GM Bot PO SCH (07:02)
[2017-06-07] MEDS: Magnesium Oxide 400 MG Tab PO SCH ×2 (07:02→17:06)
[2017-06-07] MEDS: LIDOCAINE 4% TOP SCH (07:04)
[2017-06-07] MEDS: Gabapentin 300 MG Cap PO SCH ×3 (07:04→19:36)
[2017-06-07] MEDS: DIVALPROEX SODIUM 500 MG PO SCH ×3 (07:04→17:07)
[2017-06-07] MEDS: Hydroxychloroquine 200 MG Tab PO SCH (07:05)
[2017-06-07] MEDS: QUEtiapine 25 MG Tab PO SCH ×2 (07:06→19:36)
[2017-06-07] MEDS: Acetaminophen 500 MG Tab PO SCH ×3 (07:07→17:08)
[2017-06-07] MEDS: Bisacodyl 10 MG Supp RECTAL PRN (15:46)
[2017-06-07] MEDS: Menthol/Methyl Salicylate 85 GM Tube TOP PRN (15:51)
[2017-06-07] MEDS: BUPROPION 300 MG PO SCH (17:07)
[2017-06-07] MEDS: Levothyroxine 75 MCG Tab PO SCH (19:36)
[2017-06-07] MEDS: LIDOCAINE PATCH REMOVAL TRDERM SCH (19:37)
[2017-06-08] MEDS: LORazepam 1 MG Tab PO SCH ×4 (07:02→19:00)
[2017-06-08] MEDS: Nicotine 21 MG/24 Hr Patch TRDERM SCH (07:04)
[2017-06-08] MEDS: Citalopram 20 MG Tab**OWN MED PO SCH (07:04)
[2017-06-08] MEDS: Magnesium Oxide 400 MG Tab PO SCH ×2 (07:06→17:05)
[2017-06-08] MEDS: Polyethylene Glycol 3350 Powder 510 GM Bot PO SCH (07:06)
[2017-06-08] MEDS: Gabapentin 300 MG Cap PO SCH ×3 (07:07→19:01)
[2017-06-08] MEDS: DIVALPROEX SODIUM 500 MG PO SCH ×3 (07:07→17:06)
[2017-06-08] MEDS: Hydroxychloroquine 200 MG Tab PO SCH (07:08)
[2017-06-08] MEDS: LIDOCAINE 4% TOP SCH (07:08)
[2017-06-08] MEDS: QUEtiapine 25 MG Tab PO SCH ×2 (07:10→19:01)
[2017-06-08] MEDS: Acetaminophen 500 MG Tab PO SCH ×3 (07:10→17:08)
[2017-06-08 09:16] VITALS: BP 123/73
[2017-06-08] MEDS: Ibuprofen 200 MG Tab PO PRN ×2 (11:18→19:03)
[2017-06-08] MEDS: Bisacodyl 10 MG Supp RECTAL PRN (16:17)
[2017-06-08] MEDS: BUPROPION 300 MG PO SCH (17:06)
[2017-06-08] MEDS: Levothyroxine 75 MCG Tab PO SCH (19:01)
[2017-06-08] MEDS: LIDOCAINE PATCH REMOVAL TRDERM SCH (19:02)
[2017-06-09] MEDS: Ibuprofen 200 MG Tab PO PRN ×2 (05:42→13:49)
[2017-06-09] MEDS: LORazepam 1 MG Tab PO SCH ×4 (07:05→19:29)
[2017-06-09] MEDS: Citalopram 20 MG Tab**OWN MED PO SCH (07:07)
[2017-06-09] MEDS: Nicotine 21 MG/24 Hr Patch TRDERM SCH (07:07)
[2017-06-09] MEDS: Gabapentin 300 MG Cap PO SCH ×3 (07:08→19:31)
[2017-06-09] MEDS: Magnesium Oxide 400 MG Tab PO SCH ×2 (07:08→17:04)
[2017-06-09] MEDS: Polyethylene Glycol 3350 Powder 510 GM Bot PO SCH (07:08)
[2017-06-09] MEDS: Hydroxychloroquine 200 MG Tab PO SCH (07:09)
[2017-06-09] MEDS: LIDOCAINE 4% TOP SCH (07:09)
[2017-06-09] MEDS: DIVALPROEX SODIUM 500 MG PO SCH ×3 (07:09→17:05)
[2017-06-09] MEDS: Acetaminophen 500 MG Tab PO SCH ×3 (07:10→17:05)
[2017-06-09] MEDS: QUEtiapine 25 MG Tab PO SCH ×2 (07:10→19:31)
[2017-06-09] MEDS: Bisacodyl 10 MG Supp RECTAL PRN (14:57)
[2017-06-09] MEDS: BUPROPION 300 MG PO SCH (17:05)
[2017-06-09] MEDS: Levothyroxine 75 MCG Tab PO SCH (19:30)
[2017-06-09] MEDS: LIDOCAINE PATCH REMOVAL TRDERM SCH (19:31)
[2017-06-10] MEDS: Ibuprofen 200 MG Tab PO PRN ×3 (05:01→22:25)
[2017-06-10] MEDS: Nicotine 21 MG/24 Hr Patch TRDERM SCH (07:06)
[2017-06-10] MEDS: LORazepam 1 MG Tab PO SCH ×4 (07:07→19:49)
[2017-06-10] MEDS: LIDOCAINE 4% TOP SCH (07:07)
[2017-06-10] MEDS: Magnesium Oxide 400 MG Tab PO SCH ×2 (07:08→17:02)
[2017-06-10] MEDS: Polyethylene Glycol 3350 Powder 510 GM Bot PO SCH (07:08)
[2017-06-10] MEDS: Citalopram 20 MG Tab**OWN MED PO SCH (07:08)
[2017-06-10] MEDS: Gabapentin 300 MG Cap PO SCH ×3 (07:09→19:47)
[2017-06-10] MEDS: DIVALPROEX SODIUM 500 MG PO SCH ×3 (07:09→17:02)
[2017-06-10] MEDS: Hydroxychloroquine 200 MG Tab PO SCH (07:09)
[2017-06-10] MEDS: Acetaminophen 500 MG Tab PO SCH ×3 (07:10→17:02)
[2017-06-10] MEDS: QUEtiapine 25 MG Tab PO SCH ×2 (07:10→19:47)
[2017-06-10] MEDS: Bisacodyl 10 MG Supp RECTAL PRN (14:35)
[2017-06-10] MEDS: BUPROPION 300 MG PO SCH (17:02)
[2017-06-10] MEDS: Levothyroxine 75 MCG Tab PO SCH (19:47)
[2017-06-10] MEDS: LIDOCAINE PATCH REMOVAL TRDERM SCH (19:50)
[2017-06-11] MEDS: Nicotine 21 MG/24 Hr Patch TRDERM SCH (07:00)
[2017-06-11] MEDS: LIDOCAINE 4% TOP SCH (07:01)
[2017-06-11] MEDS: LORazepam 1 MG Tab PO SCH ×3 (07:02→14:24)
[2017-06-11] MEDS: Magnesium Oxide 400 MG Tab PO SCH ×2 (07:03→17:00)
[2017-06-11] MEDS: Gabapentin 300 MG Cap PO SCH ×3 (07:03→19:27)
[2017-06-11] MEDS: Polyethylene Glycol 3350 Powder 510 GM Bot PO SCH (07:03)
[2017-06-11] MEDS: Citalopram 20 MG Tab**OWN MED PO SCH (07:03)
[2017-06-11] MEDS: QUEtiapine 25 MG Tab PO SCH ×2 (07:04→19:27)
[2017-06-11] MEDS: DIVALPROEX SODIUM 500 MG PO SCH ×3 (07:04→17:01)
[2017-06-11] MEDS: Hydroxychloroquine 200 MG Tab PO SCH (07:04)
[2017-06-11] MEDS: Acetaminophen 500 MG Tab PO SCH ×3 (07:05→17:01)
[2017-06-11] MEDS: Ibuprofen 200 MG Tab PO PRN ×3 (11:05→23:36)
[2017-06-11] MEDS: BUPROPION 300 MG PO SCH (17:01)
[2017-06-11] MEDS ORDERED: LORazepam 1 MG Tab PO ONE (18:00)
[2017-06-11] MEDS: Levothyroxine 75 MCG Tab PO SCH (19:26)
[2017-06-11] MEDS: LIDOCAINE PATCH REMOVAL TRDERM SCH (19:27)
[2017-06-12] MEDS: Ibuprofen 200 MG Tab PO PRN ×2 (05:22→14:40)
[2017-06-12] MEDS: LORazepam 1 MG Tab PO SCH ×3 (06:56→13:39)
[2017-06-12] MEDS: Nicotine 21 MG/24 Hr Patch TRDERM SCH (06:59)
[2017-06-12] MEDS: Citalopram 20 MG Tab**OWN MED PO SCH (06:59)
[2017-06-12] MEDS: Magnesium Oxide 400 MG Tab PO SCH (07:00)
[2017-06-12] MEDS: Polyethylene Glycol 3350 Powder 510 GM Bot PO SCH (07:01)
[2017-06-12] MEDS: LIDOCAINE 4% TOP SCH (07:04)
[2017-06-12] MEDS: DIVALPROEX SODIUM 500 MG PO SCH ×2 (07:04→10:59)
[2017-06-12] MEDS: Gabapentin 300 MG Cap PO SCH ×2 (07:04→10:59)
[2017-06-12] MEDS: Hydroxychloroquine 200 MG Tab PO SCH (07:05)
[2017-06-12] MEDS: QUEtiapine 25 MG Tab PO SCH (07:06)
[2017-06-12] MEDS: Acetaminophen 500 MG Tab PO SCH ×2 (07:14→11:00)
--- NOTE | 2017-06-12 09:02 | PCM.DCSUM1 ---
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 (1.005-1.030) Urine Protein (NEGATIVE) mg/dL Urine Glucose (UA) (NEGATIVE) mg/dL Urine Ketones (NEGATIVE) mg/dL Urine Occult Blood (NEGATIVE) Urine Nitrite (NEGATIVE) Urine Bilirubin (NEGATIVE) Urine Urobilinogen (0.2-1.0) E.U./dL Ur Leukocyte Esterase (NEGATIVE) Urine RBC /HPF Urine WBC /HPF Ur Epithelial Cells /LPF Urine Bacteria (NONE TO FEW) /HPF Urine Yeast (NEGATIVE) /HPF Urine Opiates Screen (NEGATIVE) Urine Methadone Screen (NEGATIVE) U Acetaminophen Screen (NEGATIVE) Ur Barbiturates Screen (NEGATIVE) Valproic Acid (50-100) ug/mL Ur Tricyclics Screen (NEGATIVE) Ur Phencyclidine Scrn (NEGATIVE) Ur Amphetamine Screen (NEGATIVE) U Methamphetamines Scrn (NEGATIVE) U Benzodiazepines Scrn (NEGATIVE) U Cocaine Metab Screen (NEGATIVE) U Marijuana (THC) Screen (NEGATIVE) Ethyl Alcohol (0.000-0.080) g/dL 02/28/17 02/28/17 03/01/17 Range/Units 18:30 18:30 16:29 WBC (4.0-10.2) K/uL RBC (3.77-5.09) M/uL Hgb (11.7-15.5) g/dL Hct (34.0-46.0) % MCV (84.0-98.0) fL MCH (28.2-33.3) pg MCHC (31.7-36.0) g/dL RDW (11.2-14.1) % Plt Count (150-350) K/uL Neut % (Auto) (45.0-80.0) % Lymph % (Auto) (10.0-50.0) % [place] % (Auto) (2.0-14.0) % Eos % (Auto) (0.0-5.0) % Baso % (Auto) (0.0-2.0) % Neut # (Auto) (1.40-7.00) K/uL Lymph # (Auto) (0.50-3.50) K/uL [place] # (Auto) (0.00-1.00) K/uL Eos # (Auto) (0.00-0.50) K/uL Baso # (Auto) (0.00-0.20) K/uL Sodium (136-145) mmol/L Potassium (3.5-5.1) mmol/L Chloride (98-107) mmol/L Carbon Dioxide (21.0-32.0) mmol/L BUN (7-18) mg/dL Creatinine (0.51-1.17) mg/dL Est Cr Clr Drug Dosing mL/min Estimated GFR (MDRD) mL/min Glucose (74-106) mg/dL Uric Acid (2.6-7.2) mg/dL Calcium (8.5-10.1) mg/dL Magnesium (1.8-2.4) mg/dL Total Bilirubin (0.2-1.0) mg/dL AST (15-37) U/L ALT (12-78) U/L Alkaline Phosphatase (46-116) IU/L Total Protein (6.4-8.2) g/dL Albumin (3.4-5.0) g/dL TSH, Ultra Sensitive (0.358-3.740) mIU/mL Prolactin ng/mL Specimen Type Urine Color Urine Appearance Urine pH (5.0-9.0) Ur Specific [place] (1.005-1.030) Urine Protein (NEGATIVE) mg/dL Urine Glucose (UA) (NEGATIVE) mg/dL Urine Ketones (NEGATIVE) mg/dL Urine Occult Blood (NEGATIVE) Urine Nitrite (NEGATIVE) Urine Bilirubin (NEGATIVE) Urine Urobilinogen (0.2-1.0) E.U./dL Ur Leukocyte Esterase (NEGATIVE) Urine RBC /HPF Urine WBC /HPF Ur Epithelial Cells /LPF Urine Bacteria (NONE TO FEW) /HPF Urine Yeast (NEGATIVE) /HPF Urine Opiates Screen Negative Negative (NEGATIVE) Urine Methadone Screen Negative Negative (NEGATIVE) U Acetaminophen Screen Positive H Positive H (NEGATIVE) Ur Barbiturates Screen Negative Negative (NEGATIVE) Valproic Acid (50-100) ug/mL Ur Tricyclics Screen Positive H Positive H (NEGATIVE) Ur Phencyclidine Scrn Negative Negative (NEGATIVE) Ur Amphetamine Screen Negative Negative (NEGATIVE) U Methamphetamines Scrn Negative Negative (NEGATIVE) U Benzodiazepines Scrn Positive H Positive H (NEGATIVE) U Cocaine Metab Screen Negative Negative (NEGATIVE) U Marijuana (THC) Screen Negative Negative (NEGATIVE) Ethyl Alcohol 0.063 (0.000-0.080) g/dL 03/01/17 03/29/17 03/29/17 Range/Units 17:15 07:25 07:25 WBC 4.2 (4.0-10.2) K/uL RBC 4.01 (3.77-5.09) M/uL Hgb 12.1 (11.7-15.5) g/dL Hct 37.7 (34.0-46.0) % MCV 94.0 (84.0-98.0) fL MCH 30.2 (28.2-33.3) pg MCHC 32.1 (31.7-36.0) g/dL RDW 15.1 H (11.2-14.1) % Plt Count 182 (150-350) K/uL Neut % (Auto) 42.1 L (45.0-80.0) % Lymph % (Auto) 43.3 (10.0-50.0) % [place] % (Auto) 10.5 (2.0-14.0) % Eos % (Auto) 2.9 (0.0-5.0) % Baso % (Auto) 1.2 (0.0-2.0) % Neut # (Auto) 1.76 (1.40-7.00) K/uL Lymph # (Auto) 1.81 (0.50-3.50) K/uL [place] # (Auto) 0.44 (0.00-1.00) K/uL Eos # (Auto) 0.12 (0.00-0.50) K/uL Baso # (Auto) 0.05 (0.00-0.20) K/uL Sodium 140 (136-145) mmol/L Potassium 4.4 (3.5-5.1) mmol/L Chloride 104 (98-107) mmol/L Carbon Dioxide 28.7 (21.0-32.0) mmol/L BUN 30 H (7-18) mg/dL Creatinine 0.74 (0.51-1.17) mg/dL Est Cr Clr Drug Dosing 76.54 mL/min Estimated GFR (MDRD) > 60 mL/min Glucose 85 (74-106) mg/dL Uric Acid (2.6-7.2) mg/dL Calcium 8.9 (8.5-10.1) mg/dL Magnesium (1.8-2.4) mg/dL Total Bilirubin 0.2 (0.2-1.0) mg/dL AST 15 (15-37) U/L ALT 14 (12-78) U/L Alkaline Phosphatase 68 (46-116) IU/L Total Protein 7.4 (6.4-8.2) g/dL Albumin 3.5 (3.4-5.0) g/dL TSH, Ultra Sensitive (0.358-3.740) mIU/mL Prolactin ng/mL Specimen Type Urine Color Urine Appearance Urine pH (5.0-9.0) Ur Specific [place] (1.005-1.030) Urine Protein (NEGATIVE) mg/dL Urine Glucose (UA) (NEGATIVE) mg/dL Urine Ketones (NEGATIVE) mg/dL Urine Occult Blood (NEGATIVE) Urine Nitrite (NEGATIVE) Urine Bilirubin (NEGATIVE) Urine Urobilinogen (0.2-1.0) E.U./dL Ur Leukocyte Esterase (NEGATIVE) Urine RBC /HPF Urine WBC /HPF Ur Epithelial Cells /LPF Urine Bacteria (NONE TO FEW) /HPF Urine Yeast (NEGATIVE) /HPF Urine Opiates Screen (NEGATIVE) Urine Methadone Screen (NEGATIVE) U Acetaminophen Screen (NEGATIVE) Ur Barbiturates Screen (NEGATIVE) Valproic Acid (50-100) ug/mL Ur Tricyclics Screen (NEGATIVE) Ur Phencyclidine Scrn (NEGATIVE) Ur Amphetamine Screen (NEGATIVE) U Methamphetamines Scrn (NEGATIVE) U Benzodiazepines Scrn (NEGATIVE) U Cocaine Metab Screen (NEGATIVE) U Marijuana (THC) Screen (NEGATIVE) Ethyl Alcohol 0.003 (0.000-0.080) g/dL 03/29/17 05/01/17 05/14/17 Range/Units 07:25 07:05 12:30 WBC (4.0-10.2) K/uL RBC (3.77-5.09) M/uL Hgb (11.7-15.5) g/dL Hct (34.0-46.0) % MCV (84.0-98.0) fL MCH (28.2-33.3) pg MCHC (31.7-36.0) g/dL RDW (11.2-14.1) % Plt Count (150-350) K/uL Neut % (Auto) (45.0-80.0) % Lymph % (Auto) (10.0-50.0) % [place] % (Auto) (2.0-14.0) % Eos % (Auto) (0.0-5.0) % Baso % (Auto) (0.0-2.0) % Neut # (Auto) (1.40-7.00) K/uL Lymph # (Auto) (0.50-3.50) K/uL [place] # (Auto) (0.00-1.00) K/uL Eos # (Auto) (0.00-0.50) K/uL Baso # (Auto) (0.00-0.20) K/uL Sodium (136-145) mmol/L Potassium (3.5-5.1) mmol/L Chloride (98-107) mmol/L Carbon Dioxide (21.0-32.0) mmol/L BUN (7-18) mg/dL Creatinine (0.51-1.17) mg/dL Est Cr Clr Drug Dosing mL/min Estimated GFR (MDRD) mL/min Glucose (74-106) mg/dL Uric Acid (2.6-7.2) mg/dL Calcium (8.5-10.1) mg/dL Magnesium (1.8-2.4) mg/dL Total Bilirubin (0.2-1.0) mg/dL AST (15-37) U/L ALT (12-78) U/L Alkaline Phosphatase (46-116) IU/L Total Protein (6.4-8.2) g/dL Albumin (3.4-5.0) g/dL TSH, Ultra Sensitive 5.073 H 3.747 H (0.358-3.740) mIU/mL Prolactin ng/mL Specimen Type Urin[place]ad Urine Color Yellow Urine Appearance Clear Urine pH 7.0 (5.0-9.0) Ur Specific [place] 1.015 (1.005-1.030) Urine Protein Negative (NEGATIVE) mg/dL Urine Glucose (UA) Negative (NEGATIVE) mg/dL Urine Ketones Negative (NEGATIVE) mg/dL Urine Occult Blood Negative (NEGATIVE) Urine Nitrite Negative (NEGATIVE) Urine Bilirubin Negative (NEGATIVE) Urine Urobilinogen 0.2 (0.2-1.0) E.U./dL Ur Leukocyte Esterase Small H (NEGATIVE) Urine RBC Not seen /HPF Urine WBC 0-5 /HPF Ur Epithelial Cells Few /LPF Urine Bacteria Few (NONE TO FEW) /HPF Urine Yeast (NEGATIVE) /HPF Urine Opiates Screen (NEGATIVE) Urine Methadone Screen (NEGATIVE) U Acetaminophen Screen (NEGATIVE) Ur Barbiturates Screen (NEGATIVE) Valproic Acid (50-100) ug/mL Ur Tricyclics Screen (NEGATIVE) Ur Phencyclidine Scrn (NEGATIVE) Ur Amphetamine Screen (NEGATIVE) U Methamphetamines Scrn (NEGATIVE) U Benzodiazepines Scrn (NEGATIVE) U Cocaine Metab Screen (NEGATIVE) U Marijuana (THC) Screen (NEGATIVE) Ethyl Alcohol (0.000-0.080) g/dL 05/14/17 05/18/17 05/29/17 Range/Units 12:30 07:30 07:00 WBC 4.5 (4.0-10.2) K/uL RBC 3.89 (3.77-5.09) M/uL Hgb 12.1 (11.7-15.5) g/dL Hct 37.8 (34.0-46.0) % MCV 97.2 (84.0-98.0) fL MCH 31.1 (28.2-33.3) pg MCHC 32.0 (31.7-36.0) g/dL RDW 13.1 (11.2-14.1) % Plt Count 188 (150-350) K/uL Neut % (Auto) 39.2 L (45.0-80.0) % Lymph % (Auto) 41.2 (10.0-50.0) % [place] % (Auto) 12.1 (2.0-14.0) % Eos % (Auto) 5.5 H (0.0-5.0) % Baso % (Auto) 2.0 (0.0-2.0) % Neut # (Auto) 1.78 (1.40-7.00) K/uL Lymph # (Auto) 1.87 (0.50-3.50) K/uL [place] # (Auto) 0.55 (0.00-1.00) K/uL Eos # (Auto) 0.25 (0.00-0.50) K/uL Baso # (Auto) 0.09 (0.00-0.20) K/uL Sodium (136-145) mmol/L Potassium 4.7 (3.5-5.1) mmol/L Chloride (98-107) mmol/L Carbon Dioxide (21.0-32.0) mmol/L BUN (7-18) mg/dL Creatinine (0.51-1.17) mg/dL Est Cr Clr Drug Dosing mL/min Estimated GFR (MDRD) mL/min Glucose (74-106) mg/dL Uric Acid (2.6-7.2) mg/dL Calcium (8.5-10.1) mg/dL Magnesium (1.8-2.4) mg/dL Total Bilirubin (0.2-1.0) mg/dL AST (15-37) U/L ALT (12-78) U/L Alkaline Phosphatase (46-116) IU/L Total Protein (6.4-8.2) g/dL Albumin (3.4-5.0) g/dL TSH, Ultra Sensitive (0.358-3.740) mIU/mL Prolactin ng/mL Specimen Type Urine Color Urine Appearance Urine pH (5.0-9.0) Ur Specific [place] (1.005-1.030) Urine Protein (NEGATIVE) mg/dL Urine Glucose (UA) (NEGATIVE) mg/dL Urine Ketones (NEGATIVE) mg/dL Urine Occult Blood (NEGATIVE) Urine Nitrite (NEGATIVE) Urine Bilirubin (NEGATIVE) Urine Urobilinogen (0.2-1.0) E.U./dL Ur Leukocyte Esterase (NEGATIVE) Urine RBC /HPF Urine WBC /HPF Ur Epithelial Cells /LPF Urine Bacteria (NONE TO FEW) /HPF Urine Yeast (NEGATIVE) /HPF Urine Opiates Screen Negative (NEGATIVE) Urine Methadone Screen Negative (NEGATIVE) U Acetaminophen Screen Positive H (NEGATIVE) Ur Barbiturates Screen Negative (NEGATIVE) Valproic Acid (50-100) ug/mL Ur Tricyclics Screen Negative (NEGATIVE) Ur Phencyclidine Scrn Negative (NEGATIVE) Ur Amphetamine Screen Negative (NEGATIVE) U Methamphetamines Scrn Negative (NEGATIVE) U Benzodiazepines Scrn Positive H (NEGATIVE) U Cocaine Metab Screen Negative (NEGATIVE) U Marijuana (THC) Screen Negative (NEGATIVE) Ethyl Alcohol (0.000-0.080) g/dL 05/29/17 Range/Units 07:00 WBC (4.0-10.2) K/uL RBC (3.77-5.09) M/uL Hgb (11.7-15.5) g/dL Hct (34.0-46.0) % MCV (84.0-98.0) fL MCH (28.2-33.3) pg MCHC (31.7-36.0) g/dL RDW (11.2-14.1) % Plt Count (150-350) K/uL Neut % (Auto) (45.0-80.0) % Lymph % (Auto) (10.0-50.0) % [place] % (Auto) (2.0-14.0) % Eos % (Auto) (0.0-5.0) % Baso % (Auto) (0.0-2.0) % Neut # (Auto) (1.40-7.00) K/uL Lymph # (Auto) (0.50-3.50) K/uL [place] # (Auto) (0.00-1.00) K/uL Eos # (Auto) (0.00-0.50) K/uL Baso # (Auto) (0.00-0.20) K/uL Sodium 137 (136-145) mmol/L Potassium 4.8 (3.5-5.1) mmol/L Chloride 101 (98-107) mmol/L Carbon Dioxide 29.0 (21.0-32.0) mmol/L BUN 37 H (7-18) mg/dL Creatinine 0.87 (0.51-1.17) mg/dL Est Cr Clr Drug Dosing 67.90 mL/min Estimated GFR (MDRD) > 60 mL/min Glucose 87 (74-106) mg/dL Uric Acid 4.7 (2.6-7.2) mg/dL Calcium 8.9 (8.5-10.1) mg/dL Magnesium 1.9 (1.8-2.4) mg/dL Total Bilirubin 0.2 (0.2-1.0) mg/dL AST 15 (15-37) U/L ALT 21 (12-78) U/L Alkaline Phosphatase 50 (46-116) IU/L Total Protein 7.3 (6.4-8.2) g/dL Albumin 3.5 (3.4-5.0) g/dL TSH, Ultra Sensitive 2.794 (0.358-3.740) mIU/mL Prolactin ng/mL Specimen Type Urine Color Urine Appearance Urine pH (5.0-9.0) Ur Specific [place] (1.005-1.030) Urine Protein (NEGATIVE) mg/dL Urine Glucose (UA) (NEGATIVE) mg/dL Urine Ketones (NEGATIVE) mg/dL Urine Occult Blood (NEGATIVE) Urine Nitrite (NEGATIVE) Urine Bilirubin (NEGATIVE) Urine Urobilinogen (0.2-1.0) E.U./dL Ur Leukocyte Esterase (NEGATIVE) Urine RBC /HPF Urine WBC /HPF Ur Epithelial Cells /LPF Urine Bacteria (NONE TO FEW) /HPF Urine Yeast (NEGATIVE) /HPF Urine Opiates Screen (NEGATIVE) Urine Methadone Screen (NEGATIVE) U Acetaminophen Screen (NEGATIVE) Ur Barbiturates Screen (NEGATIVE) Valproic Acid (50-100) ug/mL Ur Tricyclics Screen (NEGATIVE) Ur Phencyclidine Scrn (NEGATIVE) Ur Amphetamine Screen (NEGATIVE) U Methamphetamines Scrn (NEGATIVE) U Benzodiazepines Scrn (NEGATIVE) U Cocaine Metab Screen (NEGATIVE) U Marijuana (THC) Screen (NEGATIVE) Ethyl Alcohol (0.000-0.080) g/dL [id number] Results - Last 24 hrs: Microbiology 02/06/17 14:03 Urine, Clean Catch Urine Culture - Final MIXED POSITIVE [place] DAY 2 Med Orders - Current: Current Medications Acetaminophen (Tylenol Extra Strength) 1,000 mg PO TID CRICKET Last Admin: 06/12/17 07:14 Dose: 1,000 mg Al Hydroxide/Mg Hydroxide (Mag-Al Plus) 30 ml PO QID PRN PRN Reason: Indigestion Last Admin: 05/20/17 07:13 Dose: 30 ml Albuterol (Proventil Neb Soln) 2.5 mg INH Q2H PRN PRN Reason: Dyspnea Albuterol/Ipratropium (Duoneb 3.0-0.5 Mg/3 Ml) 3 ml NEB Q4HRRT PRN PRN Reason: Cough Bisacodyl (Dulcolax) 10 mg RECTAL DAILY PRN PRN Reason: Constipation Last Admin: 06/10/17 14:35 Dose: 10 mg Carisoprodol (Soma) 350 mg PO TID@08,12,20 [facility] Last Admin: 06/12/17 06:59 Dose: 350 mg Citalopram Hydrobromide (Celexa) 20 mg PO DAILY [facility] Last Admin: 06/12/17 06:59 Dose: 20 mg Gabapentin (Neurontin) 300 mg PO TID@0800,1200,2000 [facility] Last Admin: 06/12/17 07:04 Dose: 300 mg Hydroxychloroquine Sulfate (Plaquenil) 200 mg PO DAILY [facility] Last Admin: 06/12/17 07:05 Dose: 200 mg Ibuprofen (Motrin) 400 mg PO Q6H PRN PRN Reason: Pain/Fever Last Admin: 06/12/17 05:22 Dose: 400 mg Levothyroxine Sodium (Levothyroxine) 75 mcg PO BEDTIME [facility] Last Admin: 06/11/17 19:26 Dose: 75 mcg Lorazepam (Ativan) 1 mg PO 0700,1100,1430,2000 [facility] Last Admin: 06/12/17 06:56 Dose: 1 mg Magnesium Citrate (Citrate Of Magnesia) 296 ml PO ONETIME PRN PRN Reason: Constipation Last Admin: 04/28/17 07:06 Dose: 296 ml Magnesium Hydroxide (Milk Of Magnesia) 30 ml PO DAILY PRN PRN Reason: Constipation Last Admin: 06/02/17 14:32 Dose: 30 ml Magnesium Oxide (Magnesium Oxide) 400 mg PO BID [facility] Last Admin: 06/12/17 07:00 Dose: 400 mg Methyl Salicylate (Icy Hot Cream) 1 gm TOP QID PRN PRN Reason: Pain Last Admin: 06/07/17 15:51 Dose: 1 applic Miscellaneous Information (Remove Patch) 1 ea TRDERM DAILY [facility] Last Admin: 06/12/17 07:05 Dose: 1 ea Miscellaneous Information (Remove Patch) 1 ea TRDERM BEDTIME [facility] Last Admin: 06/11/17 19:27 Dose: 1 ea Nicotine (Habitrol) 21 mg TRDERM DAILY [facility] Last Admin: 06/12/17 06:59 Dose: 21 mg Bupropion Xl 300mg (Tablets) 1 each PO QPM [facility] Last Admin: 06/11/17 17:01 Dose: [address] (500mg Tabs) 1 each PO TID [facility] Last Admin: 06/12/17 07:04 Dose: 1 each Lidocaine Patch 4% ( (Otc)) 1 each TOP DAILY [facility] Last Admin: 06/12/17 07:04 Dose: 1 each Polyethylene Glycol (Miralax) 17 gm PO DAILY [facility] Last Admin: 06/12/17 07:01 Dose: 17 gm Quetiapine Fumarate (Seroquel) 25 mg PO Q12HR [facility] Last Admin: 06/12/17 07:06 Dose: 25 mg Senna/Docusate Sodium (Senna Plus) 1 tab PO BID [facility] Last Admin: 06/12/17 07:05 Dose: 1 tab Sumatriptan Succinate (Imitrex) 50 mg PO ASDIRECTED PRN PRN Reason: MIGRAINE HEADACHE Last Admin: 05/18/17 03:23 Dose: 50 mg Discontinued Medications Acetaminophen (Tylenol) 650 mg PO Q4H PRN PRN Reason: Pain/Fever Last Admin: 02/13/17 03:33 Dose: 650 mg Acetaminophen (Tylenol) 1,000 mg PO TID STA Stop: 01/25/17 13:52 Last Admin: 01/25/17 14:13 Dose: Not Given Hydrocodone Bitart/Acetaminophen (Vesper 325-5 Mg) 1 tab PO Q12HR [facility] Last Admin: 02/21/17 07:42 Dose: 1 tab Alprazolam (Xanax) 1 mg PO TID [facility] Last Admin: 02/01/17 11:32 Dose: 1 mg Alprazolam (Xanax) 2 mg PO TID [facility] Last Admin: 02/21/17 07:46 Dose: 2 mg Alprazolam (Xanax) 1 mg PO TID [facility] Alprazolam (Xanax) 1 mg PO 0700,1100,1430,2000 [facility] Last Admin: 03/02/17 07:51 Dose: 1 mg Alprazolam (Xanax) 1 mg PO ONETIME ONE Stop: 02/27/17 15:56 Last Admin: 02/27/17 16:01 Dose: 1 mg Amitriptyline HCl (Elavil) 50 mg PO BEDTIME [facility] Last Admin: 02/08/17 19:15 Dose: 50 mg Amitriptyline HCl (Elavil) 50 mg PO BEDTIME [facility] Amitriptyline HCl (Elavil) 50 mg PO QPM [facility] Last Admin: 03/14/17 18:00 Dose: 50 mg Amitriptyline HCl (Elavil) 25 mg PO BEDTIME [facility] Last Admin: 04/13/17 19:36 Dose: 25 mg Amoxicillin (Amoxil) 1,000 mg PO BID [facility] Stop: 02/05/17 18:00 Last Admin: 01/23/17 17:02 Dose: 1,000 mg Bismuth Subsalicylate (Pepto Bismol) 10 ml PO QID [facility] Stop: 02/05/17 20:00 Last Admin: 01/23/17 19:35 Dose: 10 ml Bupropion HCl (Wellbutrin Xl) 150 mg PO QPM [facility] Last Admin: 02/08/17 17:06 Dose: 150 mg Bupropion HCl (Wellbutrin Xl) 150 mg PO DAILY [facility] Last Admin: 02/27/17 07:39 Dose: 150 mg Bupropion HCl (Wellbutrin Xl) 300 mg PO QPM [facility] Last Admin: 03/19/17 20:18 Dose: Not Given Carisoprodol (Soma) 350 mg PO TID@, [facility] Last Admin: 02/18/17 13:51 Dose: 350 mg Carisoprodol (Soma) 350 mg PO ONETIME ONE Stop: 06/11/17 18:01 Last Admin: 06/11/17 17:53 Dose: 350 mg Diphenhydramine HCl (Benadryl) 50 mg IVPUSH ONETIME ONE Stop: 04/03/17 12:01 Last Admin: 04/03/17 12:46 Dose: 50 mg Divalproex Sodium (Divalproex Sodium) 500 mg PO TID [facility] Last Admin: 03/19/17 20:18 Dose: Not Given Gabapentin (Neurontin) 100 mg PO TID [facility] Last Admin: 02/09/17 11:11 Dose: 100 mg Gabapentin (Neurontin) 300 mg PO BID [facility] Last Admin: 04/04/17 07:47 Dose: 300 mg Influenza Virus Vaccine (Fluzone Quad [id number]) 60 mcg IM .ONCE ONE Stop: 04/06/17 13:01 Last Admin: 04/06/17 12:57 Dose: 60 mcg Ketorolac Tromethamine (Toradol) 30 mg IVPUSH ONETIME ONE Stop: 04/03/17 12:01 Last Admin: 04/03/17 12:48 Dose: 30 mg Levothyroxine Sodium (Synthroid) 50 mcg PO ACBREAKFAST [facility] Levothyroxine Sodium (Synthroid) 50 mcg PO BEDTIME [facility] Last Admin: 04/30/17 19:15 Dose: 50 mcg Lidocaine (Lidoderm 5%) 700 mg TOP Q24H [facility] Last Admin: 03/20/17 11:37 Dose: Not Given Lorazepam (Ativan) 0.5 mg PO ONETIME ONE Stop: 02/15/17 15:46 Last Admin: 02/15/17 15:53 Dose: 0.5 mg Lorazepam (Ativan) 0.5 mg PO ONETIME ONE Stop: 02/16/17 14:24 Last Admin: 02/16/17 14:46 Dose: 0.5 mg Lorazepam (Ativan) 0.5 mg PO DAILY PRN PRN Reason: Anxiety Lorazepam (Ativan) 0.5 mg PO DAILY@1430 [facility] Stop: 02/24/17 14:30 Last Admin: 02/20/17 15:00 Dose: 0.5 mg Lorazepam (Ativan) 1 mg PO 0700,1100,1430,2000 [facility] Last Admin: 02/27/17 11:46 Dose: 1 mg Lorazepam (Ativan) 1 mg PO ONETIME ONE Stop: 06/11/17 18:01 Last Admin: 06/11/17 17:52 Dose: 1 mg Magnesium Citrate (Citrate Of Magnesia) 296 ml PO ONETIME ONE Stop: 02/01/17 12:31 Last Admin: 02/01/17 13:09 Dose: 296 ml Magnesium Citrate (Citrate Of Magnesia) 296 ml PO ONETIME ONE Stop: 02/02/17 14:37 Last Admin: 02/02/17 15:30 Dose: 296 ml Methylprednisolone Acetate (Depo-Medrol) 80 mg IM ONETIME ONE Stop: 05/01/17 11:38 Last Admin: 05/01/17 12:58 Dose: 80 mg Methylprednisolone Acetate (Depo-Medrol) 80 mg IM ONETIME ONE Stop: 05/23/17 12:01 Last Admin: 05/23/17 12:48 Dose: 80 mg Metoclopramide HCl (Reglan) 20 mg IVPUSH ONETIME ONE Stop: 04/03/17 12:01 Last Admin: 04/03/17 12:40 Dose: 20 mg Metronidazole (Flagyl) 500 mg PO Q8H [facility] Stop: 02/05/17 18:00 Last Admin: 01/22/17 18:32 Dose: Not Given Metronidazole (Flagyl) 500 mg PO Q8H [facility] Last Admin: 01/23/17 17:01 Dose: 500 mg Miscellaneous Information (Remove Patch) 1 ea TRDERM QPM [facility] Last Admin: 03/27/17 17:15 Dose: Not Given Miscellaneous Information (Remove Patch) 1 ea TRDERM DAILY@2200 [facility] Last Admin: 03/19/17 23:26 Dose: 1 ea Miscellaneous Information (Remove Patch) 1 ea TRDERM BEDTIME [facility] Stop: 05/01/17 20:01 Last Admin: 05/01/17 20:05 Dose: 1 ea Nicotine (Habitrol) 21 mg TRDERM QPM [facility] Last Admin: 03/27/17 17:13 Dose: Not Given Paroxetine 40mg Tabs 1 each PO QAM [facility] Last Admin: 04/18/17 07:00 Dose: 1 each Lidocaine Patch 4% ( (Otc)) 1 each TOP DAILY [facility] Stop: 05/01/17 08:01 Last Admin: 05/01/17 07:06 Dose: 1 each Omeprazole (Omeprazole) 20 mg PO BIDAC [facility] Stop: 02/05/17 18:00 Last Admin: 02/05/17 17:10 Dose: 20 mg Ondansetron HCl (Zofran Odt) 4 mg PO Q8H PRN PRN Reason: Nausea Stop: 05/16/17 14:01 Paroxetine HCl (Paxil) 40 mg PO QAM [facility] Last Admin: 03/19/17 07:57 Dose: 40 mg Pneumococcal 13-Valent Conj Vacc (Prevnar 13) 0.5 ml IM .ONCE ONE Stop: 04/06/17 13:01 Last Admin: 04/06/17 12:59 Dose: 0.5 ml Polyethylene Glycol (Miralax) 17 gm PO ONETIME ONE Stop: 02/01/17 12:31 Last Admin: 02/01/17 13:09 Dose: 17 gm Polyethylene Glycol (Miralax) 17 gm PO MOWEFR@2000 [facility] Last Admin: 04/30/17 19:18 Dose: 17 gm Quetiapine Fumarate (Seroquel) 25 mg PO BEDTIME [facility] Last Admin: 02/25/17 20:22 Dose: 25 mg Sodium Chloride (Saline Flush) 10 ml FLUSH Q12H [facility] Last Admin: 01/25/17 07:12 Dose: 10 ml Sodium Chloride (Saline Flush) 10 ml FLUSH Q12HR [facility] Last Admin: 04/04/17 07:51 Dose: 10 ml Sodium Chloride (Saline Flush) 10 ml FLUSH ASDIRECTED PRN PRN Reason: PER PROTOCOL Last Admin: 04/03/17 13:07 Dose: 10 ml Sumatriptan Succinate (Imitrex) 6 mg SUBCUT ONETIME ONE Stop: 04/04/17 11:01 Last Admin: 04/04/17 11:30 Dose: 6 mg Sumatriptan Succinate (Imitrex) 6 mg SUBCUT ONETIME PRN PRN Reason: HEADACHE Stop: 04/05/17 12:01 Last Admin: 04/04/17 19:20 Dose: 6 mg - Exam Quality Assessment: Reports: DVT Prophylaxis. Denies: Supplemental Oxygen, Central Line/PICC, Urine Catheter, Skin Breakdown, Restraints General: Reports: Alert, Oriented, No Acute Distress. Denies: Cooperative ( Occasionally confrontational as above) HEENT: Reports: Pupils Equal, Pupils Reactive, Mucous Membr. Moist/Lyden. Denies : Scleral Icterus Neck: Reports: Supple, Trachea Midline, No Thyromegaly, +2 Carotid Pulse wo Bruit Lungs: Reports: Clear to Auscultation, Normal Respiratory Effort. Denies: Rub Cardiovascular: Reports: Regular Rate, No Murmurs. Denies: Gallops, Rubs GI/Abdominal Exam: Normal Bowel Sounds, Soft, Non-Tender, No Organomegaly, No Distention, No Abnormal Bruit, No Mass, Pelvis Stable. No: Guarding (Female) Exam: Deferred Rectal (Female) Exam: Deferred Back Exam: Reports: Decreased Range of Motion (Stable), Paraspinal Tenderness ( Mild bilateral lower lumbar stable from previous evaluations). 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 No: Joint Swelling, Lul's Sign Skin: Reports: Warm, Dry, Intact, Other (Multiple tattoos) Neurological: Reports: No New Focal Deficit, Other (Clinical orthostasis) Psy/Mental Status: Reports: Alert, Anxious (Moderate secondary to discharge), Depressed (Mild to moderate with adequate eye contact). Denies: Agitated, Suicidal Ideation, Homicidal Ideation, Hallucinations, Withdrawal Symptoms *Q Meaningful Use (DIS) - VTE *Q VTE Criteria *Q: - Stroke *Q Stroke Criteria *Q: - AMI *Q AMI Criteria *Q:
--- NOTE | 2017-06-12 15:55 | PCM.SN ---
- Free Text/Narrative Note: CLARIFICATION: The patient does not have a diagnosis of bipolar disorder
== END 2017-06-12 17:00 | DRG 948 ==
LOC: EEVIPCON 16:49 → LL.SWG 16:49
PROVIDERS: ADMIT Family Medicine; ATTEND Family Medicine
DX: R53.1 Weakness (principal); R63.4 Abnormal weight loss; K59.00 Constipation, unspecified; M25.551 Pain in right hip; M25.511 Pain in right shoulder; M54.6 Pain in thoracic spine; W19.XXXA Unspecified fall, initial encounter; Y92.239 Unspecified place in hospital as the place of occurrence of the external cause; G89.4 Chronic pain syndrome; R10.84 Generalized abdominal pain; E87.6 Hypokalemia; E83.42 Hypomagnesemia; F11.10 Opioid abuse, uncomplicated; J44.9 Chronic obstructive pulmonary disease, unspecified; I10 Essential (primary) hypertension; B18.2 Chronic viral hepatitis C; E88.09 Other disorders of plasma-protein metabolism, not elsewhere classified; E03.9 Hypothyroidism, unspecified; F41.8 Other specified anxiety disorders; M19.90 Unspecified osteoarthritis, unspecified site; K21.9 Gastro-esophageal reflux disease without esophagitis; G40.909 Epilepsy, unspecified, not intractable, without status epilepticus; D72.819 Decreased white blood cell count, unspecified; Z91.19 Patient's noncompliance with other medical treatment and regimen; Z91.81 History of falling; Z76.5 Malingerer [conscious simulation]; R07.81 Pleurodynia; F19.90 Other psychoactive substance use, unspecified, uncomplicated; G43.909 Migraine, unspecified, not intractable, without status migrainosus; G47.00 Insomnia, unspecified; Z79.899 Other long term (current) drug therapy
CPT/HCPCS: 36415; 71101-RT; 72040; 72070; 72100; 73010-RT; 73020-RT; 73030-RT; 74022; 80053; 80164; 80305; 81001; 83735; 84132; 84146; 84443; 84550; 85025; 87086; 90670; 90686; 97018-GO; 97022-GO; 97032-GO; 97110-GO; 97110-GP; 97112-GP; 97116-GP; 97140-GO; 97140-GP; 97161-GP; 97165-GO; 97530-GO; 97530-GP; 97535-GO; 97760-GO; A9270-GY; G0008; G0009; G0480; J1040; J1200; J1885; J2765; J3030; J7050

== ENCOUNTER 2017-05-14 08:34 | Emergency (ER) | payer MEDICARE, MEDICAID ==
[2017-05-14] MEDS ORDERED: Sodium Chloride 0.9% 10 ML Syringe FLUSH PRN (08:55)
[2017-05-14] MEDS ORDERED: Ondansetron 4 MG/2 ML SDV IVPUSH ONE (09:20)
[2017-05-14] MEDS ORDERED: Sodium Chloride 0.9% 1,000 ML IV ONE (09:20)
[2017-05-14 09:26] LABS: CHLORIDE,CL 100 mmol/L (98-107); SODIUM,NA 137 mmol/L (136-145)
[2017-05-14 09:38] VITALS: BP 132/74
[2017-05-14] MEDS ORDERED: Ketorolac 30 MG/ML SDV IVPUSH ONE (10:00)
[2017-05-14] MEDS ORDERED: LORazepam 2 MG/ML MDV IVPUSH ONE (10:00)
[2017-05-14] MEDS ORDERED: SUMAtriptan 6 MG/0.5 ML SDV SUBCUT ONE (10:00)
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
[2017-05-14] MEDS ORDERED: Ondansetron 4 MG Tab.DIS PO PRN (11:13)
== END 2017-05-14 11:15 | disposition swing bed (61) ==
LOC: LL.ED 08:34
DX: R55 Syncope and collapse (principal); E87.5 Hyperkalemia; F17.210 Nicotine dependence, cigarettes, uncomplicated; I10 Essential (primary) hypertension; J44.9 Chronic obstructive pulmonary disease, unspecified; F32.9 Major depressive disorder, single episode, unspecified; Z98.1 Arthrodesis status; Z79.899 Other long term (current) drug therapy; Z88.5 Allergy status to narcotic agent; Z88.8 Allergy status to other drugs, medicaments and biological substances
CPT/HCPCS: 36415; 71010; 80053; 82550; 82553; 84443; 84484; 85025; 93005; 96361; 96372; 96374; 96375; 99285; J1885; J2060; J2405; J3030; J7030; J7050; 93010

== ENCOUNTER 2018-07-21 16:27 | Emergency (ER) | payer MEDICARE, MEDICAID ==
[2018-07-21 16:38] VITALS: BP 100/59
[2018-07-21] MEDS ORDERED: Sodium Chloride 0.9% 10 ML Syringe FLUSH PRN (16:38)
[2018-07-21] MEDS: Albuterol/Ipratropium 3.0-0.5 MG/3 ML Neb Soln NEB ONE ×2 (16:43→16:59)
[2018-07-21] MEDS: Sodium Chloride 0.9% 1,000 ML IV SCH (16:45)
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
[2018-07-21] MEDS: methylPREDNISolone Sodium Succinate 125 MG/2 ML SDV IVPUSH SCH (17:02)
[2018-07-21 17:31] LABS: CHLORIDE,CL 99 mmol/L (98-107); SODIUM,NA 134 mmol/L (136-145)
[2018-07-21] MEDS: Piperacillin/Tazobactam 3.375 GM in Sodium Chloride 0.9% 100 ML IV SCH (17:52)
[2018-07-21] MEDS: Azithromycin 250 MG Tab PO ONE (18:39)
== END 2018-07-21 18:36 | disposition home or self-care (01) ==
LOC: LL.ED 16:27
DX: J44.1 Chronic obstructive pulmonary disease with (acute) exacerbation (principal); I12.9 Hypertensive chronic kidney disease with stage 1 through stage 4 chronic kidney disease, or unspecified chronic kidney disease; N18.9 Chronic kidney disease, unspecified; J44.9 Chronic obstructive pulmonary disease, unspecified; Z88.5 Allergy status to narcotic agent; Z88.8 Allergy status to other drugs, medicaments and biological substances; Z79.899 Other long term (current) drug therapy
CPT/HCPCS: 36415; 71045; 80053; 81001; 85025; 87040; 87086; 87088; 87186; 94640; 96361; 96365; 96375; 99283; 99285; J2543; J2930; J7030; J7050; J7620-GY